=== PATIENT | male | born 1960 | race Caucasian/White ===

== ENCOUNTER 2016-08-24 18:09 | Inpatient (IN) | payer BC ==
[~2016-08-24] VITALS: Ht 180.3 cm; Wt 126.5 kg
[~2016-08-24 18:09] MED LIST: ASPI-1085 PO; CARV6.252 PO; DIPH25CA84 PO; FURO40TA5 PO; INSU100C14 SQ; INSU300I SQ; LISI2.5T2 PO; METF10002 PO; NITR0.4T39 SL; TICA90TA PO; UNKNOWN THYROID MED
--- OUTSIDE RECORDS SUMMARY | 2016-08-24 18:14 | XMS REPORT | Continuity of Care Document ---
Author Author [facility] Organization [facility] Address Unknown Phone Unavailable Support Name Relationship Address Phone AFSHAN RICHTER MD Caregiver [address] [place] [address] Unavailable PAULO PACKER DO Caregiver [address] [place] [address] Unavailable NHI MURILLO Next Of Kin [address] [place], [place] [id number] Insurance Providers Guarantor Juwan Alas Address [address] [phone] Email DENIED/NO TO PT PORTAL Payer [facility] Policy Number [id number] Subscriber's Name Juwan Alas Relationship 18 Self Group Number [id number] Chief Complaint and Reason for Visit Chief Complaint Back Pain or Injury Reason for Visit Fatigue Problems Active Problems Medical Problem Onset Date Status CAD S/P percutaneous coronary angioplasty Unknown Chronic Congestive heart disease Unknown Chronic DM2 (diabetes mellitus, type 2) Unknown Depression Unknown Dyspnea on exertion Unknown Acute HTN (hypertension) Unknown Chronic History of pulmonary embolism Unknown Past Problems Medical Problem Onset Date Acute bronchitis Unknown Callus of foot Unknown Chest pain, rule out acute myocardial infarction Unknown Eschar of foot Unknown Fatigue Unknown Medications Current Home Medications Medication Dose Units Route Directions Days Qty Instructions Start Date Aspirin (Aspirin Ec) 81 Mg Tablet.dr 81 Mg Oral Daily 12/11/15 Carvedilol 6.25 Mg Tablet 6.25 Mg Oral Twice Daily With Meals Diphenhydramine Hcl (Benadryl) 25 Mg Capsule 25 Mg Oral Every 4 Hours as needed for Allery Symptoms 03/03/16 Furosemide 40 Mg Tablet 40 Mg Oral Daily 12/11/15 Insulin Glargine,Hum.rec.anlog (Toujeo Solostar) 300 Unit/1 Ml Insuln.pen 45 Unit Sub-Q Bedtime 12/11/15 Insulin Lispro (Humalog) 100 Unit/1 Ml Cartridge 25 Unit Sub-Q Three Times Daily With Meals 10/11/15 Lisinopril 2.5 Mg Tablet 5 Mg Oral Daily 03/03/16 Metformin Hcl 1,000 Mg Tablet 1,000 Mg Oral Twice Daily With Meals 12/11/15 Nitroglycerin 0.4 Mg Tab.subl 0.4 Mg Sublingual Every 5 Minutes X 3 as needed for Chest Tightness 12/11/15 Ticagrelor (Brilinta) 90 Mg Tablet 90 Mg Oral Twice A Day Unknown Thyroid Med 06/19/16 Social History Social History Problem Response Recorded Date/Time Onset Date Status Chewing Tobacco Status No 06/19/2016 10:16pm Not Applicable Not Applicable Hx Substance Use Y AGE 27-31 SMOKED COCAINE 06/19/2016 10:16pm Not Applicable Not Applicable Hx Alcohol Use N STOPPED 199006/19/2016 10:16pm Not Applicable Not Applicable Has the pt used tobacco in the last 12 months No 12/11/2015 4:14am Not Applicable Not Applicable Query Response Start Date Stop Date Smoking Status Never smoker Hospital Discharge Instructions No hospital discharge instructions. Plan of Care Discharge Date 06/19/16 11:56pm Disposition 01 DISCHARGED HOME, SELF-CARE Condition at Discharge Stable Instructions/Education Provided Fatigue (ED) Prescriptions See Medication Section Referrals PAULO PACKER DO Address: [address] [place] [phone] Additional Instructions/Education I do want you to schedule an appointment with Dr. Barnett and go to this appointment to evaluate your heart. I also do want you to schedule an appointment with [facility] next week for reevaluation of your symptoms. If you should have any worsening chest pain, shortness of breath, or any new issues/concerns then return to the Er for reevaluation. Care Plan and Goals Physician Care Plan Problem:Fatigue Goal: Follow up with primary care provider Instructions: Take medications and follow care plan as discussed/written Functional Status No functional status results. Allergies, Adverse Reactions, Alerts Allergen Type Severity Reaction Status Last Updated Jbgwfot-Wuh-Kua Reductase Inhibitor Allergy Unknown SPASMS Active 06/19/16 Chlorpromazine Allergy Severe STOPPED BREATHING Active 06/19/16 Immunizations Query Response on File Recorded Date/Time Hx Influenza Vaccination No 12/11/15 4:14am Hx Pneumococcal Vaccination No 12/11/15 4:14am Hx Influenza Vaccination No 12/11/15 4:14am Influenza Vaccine Hx NO 06/19/16 10:16pm Tetanus Diptheria Vaccine History UNKNOWN 06/19/16 10:16pm Vital Signs Acute Vital Signs Vital Response Date/Time Temperature (Fahrenheit) 99.0 deg F (96.8 - 99.1) 06/19/2016 10:10pm Temperature (Calculated Celsius) 37.13259 degrees C (36.0 - 37.3) 06/19/2016 10:10pm Pulse Rate (adult) 90 bpm (60 - 100) 06/19/2016 11:56pm Respiratory Rate 21 breaths/min (10 - 20) 06/19/2016 11:56pm O2 Sat by Pulse Oximetry 95 % (90 - 100) 06/19/2016 11:56pm Blood Pressure 115/56 mm Hg 06/19/2016 11:56pm Height (Feet) 5 feet 06/19/2016 10:10pm Height (Inches) 11.00 inches 06/19/2016 10:10pm Weight (Kilograms) 127.700 kg 06/19/2016 10:10pm Body Mass Index (BMI) 39.0 06/19/2016 10:10pm Results Laboratory Results Test Name Result Units Flags Reference Collection Date/Time Result Date/ Time Comments Total Bilirubin 0.60 MG/DL 0.20-1.30 04/30/2016 12:35pm 04/30/2016 1: 18pm Alkaline Phosphatase 63 U/L 38-126 04/30/2016 12:35pm 04/30/2016 1: 18pm Total Protein 7.3 G/DL 6.3-8.2 04/30/2016 12:35pm 04/30/2016 1:18pm Albumin 4.1 G/DL 3.5-5.0 04/30/2016 12:35pm 04/30/2016 1:18pm Globulin 3.2 G/DL 2.4-3.6 04/30/2016 12:35pm 04/30/2016 1:18pm Albumin/Globulin Ratio 1.3 RATIO 1.1-2.2 04/30/2016 12:35pm 04/30/2016 1:18pm Aspartate Amino Transf (AST/SGOT) 37 U/L 17-59 04/30/2016 12:35pm 04/30 1:18pm Alanine Aminotransferase (ALT/SGPT) 53 U/L 21-72 04/30/2016 12:35pm 1:18pm Cholesterol Level 188 MG/DL 132-199 04/30/2016 12:35pm 05/04/2016 2: 37am Triglycerides Level 216 MG/DL H 40-160 04/30/2016 12:35pm 05/04/2016 2: 37am HDL Cholesterol Direct 26 MG/DL L 40-60 04/30/2016 12:35pm 05/04/2016 2: 37am LDL Cholesterol, Calculated 118.8 66-159 04/30/2016 12:35pm 2016 2:37am VLDL Cholesterol 43.2 MG/DL H 0-28 04/30/2016 12:35pm 05/04/2016 2:37am Cholesterol/HDL Ratio 7.2 RATIO H 0-5.0 04/30/2016 12:35pm 05/04/2016 2: 37am C-Reactive Protein 5.8 MG/L 0-9 04/30/2016 12:35pm 04/30/2016 3:34pm Thyroid Stimulating Hormone (TSH) 4.91 MIU/L H 0.47-4.68 04/30/2016 12: 35pm 04/30/2016 2:55pm Urine Random Creatinine 62.9 MG/DL 04/30/2016 12:36pm 05/04/2016 3: 14am Urine Microalbumin < 6.0 MG/L 0-17 04/30/2016 12:36pm 05/04/2016 3: 19am Urine Collection Type CLEANCATCH-MIDSTREAM 04/30/2016 12:37pm 04/30 12:50pm Urine Color YELLOW YELLOW 04/30/2016 12:37pm 04/30/2016 12:50pm Urine Turbidity CLEAR CLEAR 04/30/2016 12:37pm 04/30/2016 12:50pm Urine Specific [place] 1.015 1.015-1.025 04/30/2016 12:37pm 2016 12:50pm Urine pH 5.5 5.0-8.0 04/30/2016 12:37pm 04/30/2016 12:50pm Urine Leukocyte Esterase NEGATIVE NEGATIVE 04/30/2016 12:37pm 2016 12:50pm Urine Nitrite NEGATIVE NEGATIVE 04/30/2016 12:37pm 04/30/2016 12: 50pm Urine Protein NEGATIVE NEGATIVE 04/30/2016 12:37pm 04/30/2016 12: 50pm Urine Glucose (UA) TRACE A NEGATIVE 04/30/2016 12:37pm 04/30/2016 12: 50pm Urine Ketones NEGATIVE NEGATIVE 04/30/2016 12:37pm 04/30/2016 12: 50pm Urine Urobilinogen 0.2 EU/DL NORMAL 04/30/2016 12:37pm 04/30/2016 12: 50pm Urine Bilirubin NEGATIVE NEGATIVE 04/30/2016 12:37pm 04/30/2016 12: 50pm Urine Blood NEGATIVE NEGATIVE 04/30/2016 12:37pm 04/30/2016 12:50pm Urine WBC NONE SEEN /HPF 0-5 04/30/2016 12:37pm 04/30/2016 1:01pm Urine RBC NONE SEEN /HPF 0-3 04/30/2016 12:37pm 04/30/2016 1:01pm Urine Bacteria NONE SEEN NEGATIVE 04/30/2016 12:37pm 04/30/2016 1: 01pm Urine Culture Indicated CULT NOT INDICATED 04/30/2016 12:37pm 04/30 1:01pm Erythrocyte Sedimentation Rate 57 mm/h H 0-15 04/30/2016 12:36pm 2016 10:44pm Sedimentation Rate performed at [facility], [address] [place] [address] Bounty Trapper Juanita Leonardo DO White Blood Count 10.9 T/MM3 4.5-11.0 06/19/2016 10:36pm 06/19/2016 10: 40pm Red Blood Count 5.09 M/MM3 4.50-5.90 06/19/2016 10:36pm 06/19/2016 10: 40pm Hemoglobin 15.9 GM/DL 13.5-17.5 06/19/2016 10:36pm 06/19/2016 10:40pm Hematocrit 45.1 % 41-53 06/19/2016 10:36pm 06/19/2016 10:40pm Mean Corpuscular Volume 88.6 UM3 80-100 06/19/2016 10:36pm 06/19/2016 10:40pm Mean Corpuscular Hemoglobin 31.2 UUG 26-34 06/19/2016 10:36pm 2016 10:40pm Mean Corpuscular Hemoglobin Concent 35.3 GM/DL 31-37 06/19/2016 10:36pm 06/19/2016 10:40pm RDW Standard Deviation 38.7 FL 36.9-50.2 06/19/2016 10:36pm 06/19/2016 10:40pm Platelet Count 250 T/MM3 130-400 06/19/2016 10:36pm 06/19/2016 10:40pm Mean Platelet Volume 11.3 UM3 9.4-12.4 06/19/2016 10:36pm 06/19/2016 10 :40pm Neutrophils (%) (Auto) 62.6 % 33-66 06/19/2016 10:36pm 06/19/2016 10: 40pm Lymphocytes (%) (Auto) 28.2 % 23-45 06/19/2016 10:36pm 06/19/2016 10: 40pm Monocytes (%) (Auto) 8.5 % 0-9.0 06/19/2016 10:36pm 06/19/2016 10:40pm Eosinophils (%) (Auto) 0.0 % 0-4 06/19/2016 10:36pm 06/19/2016 10:40pm Basophils (%) (Auto) 0.4 % 0-2 06/19/2016 10:36pm 06/19/2016 10:40pm Immature Granulocyte % (Auto) 0.3 % 0.0-0.5 06/19/2016 10:36pm 2016 10:40pm Absolute Neutrophils (auto) 6.9 T/MM3 1.8-7.7 06/19/2016 10:36pm 2016 10:40pm Absolute Lymphocytes (auto) 3.1 T/MM3 1-4.8 06/19/2016 10:36pm 2016 10:40pm Absolute Monocytes (auto) 0.9 T/MM3 H 0-0.8 06/19/2016 10:36pm 2016 10:40pm Absolute Eosinophils (auto) 0.0 T/MM3 0-0.5 06/19/2016 10:36pm 2016 10:40pm Absolute Basophils (auto) 0.0 T/MM3 0-0.2 06/19/2016 10:36pm 2016 10:40pm Absolute Immature Granulocyte (auto 0.03 T/MM3 0.00-0.03 06/19/2016 10: 36pm 06/19/2016 10:40pm Icterus Index < 2 0-7 06/19/2016 10:36pm 06/19/2016 11:19pm Chemistry Specimen Hemolysis < 15 0-25 06/19/2016 10:36pm 06/19/2016 11:19pm 0-25: Specimen Exhibited No Hemolysis. Turbidity 25 H 0-20 06/19/2016 10:36pm 06/19/2016 11:19pm 0-21: Turbidity not present. 22-999: Turbidity present - Gross turbidity can falsely decrease Lipase and Triglycerides. Sodium Level 143 MEQ/L 134-144 06/19/2016 10:36pm 06/19/2016 11:19pm Potassium Level 4.5 MEQ/L 3.6-5 06/19/2016 10:36pm 06/19/2016 11:19pm Chloride Level 101 MEQ/L 98-107 06/19/2016 10:36pm 06/19/2016 11:19pm Carbon Dioxide Level 25 MEQ/L 22-30 06/19/2016 10:36pm 06/19/2016 11: 19pm Anion Gap 17 MEQ/L H 5-15 06/19/2016 10:36pm 06/19/2016 11:19pm Blood Urea Nitrogen 42.0 MG/DL H 9-20 06/19/2016 10:36pm 06/19/2016 11: 19pm Creatinine 1.4 MG/DL 0.8-1.5 06/19/2016 10:36pm 06/19/2016 11:19pm BUN/Creatinine Ratio 30 RATIO H 6-26 06/19/2016 10:36pm 06/19/2016 11: 19pm Glomerular Filtration Rate Calc 53 06/19/2016 10:36pm 06/19/2016 11 :19pm Glucose Level 143 MG/DL H 75-110 06/19/2016 10:36pm 06/19/2016 11:19pm Calculated Osmolality 288 MOSM/KG H 261-280 06/19/2016 10:36pm 2016 11:19pm Calcium Level 9.5 MG/DL 8.4-10.2 06/19/2016 10:36pm 06/19/2016 11:19pm Troponin I < 0.012 ng/ml 0-0.12 06/19/2016 10:36pm 06/19/2016 11:31pm Troponin values with a difference of 55% increase from orginal troponin value represent a true biological DELTA value. (%increase Calc=Orginal Troponin value, divided by subsequent Troponin value, multiplied by 100) Procedures Procedure Status Date Provider(s) Ana subq tissue 20 sq cm/< Completed 05/03/16 Office/outpatient visit est Completed 05/03/16 [id number]"BORDER, EACH DRESSING" Completed 05/03/16 Routine venipuncture Completed 04/30/16 Comprehen metabolic panel Completed 04/30/16 Lipid panel Completed 04/30/16 Urinalysis auto w/scope Completed 04/30/16 Microalbumin quantitative Completed 04/30/16 Assay of urine creatinine Completed 04/30/16 Assay thyroid stim hormone Completed 04/30/16 Complete cbc w/auto diff wbc Completed 04/30/16 Rbc sed rate automated Completed 04/30/16 C-reactive protein Completed 04/30/16 Encounters Encounter Location Arrival/Admit Date Discharge/Depart Date Attending Provider Departed Emergency Room [facility] 06/19/16 9:49pm 06/19/16 11: 56pm AFSHAN RICHTER MD Registered Clinic [facility] 05/03/16 1:20pm LINDA HINOJOSA MD Registered [facility] 04/30/16 12:06pm PAULO PACKER DO Recent Diagnosis
[2016-08-24] MEDS ORDERED: FLUT16SP EA NOSTRIL (18:58)
[2016-08-24] MEDS ORDERED: LISI-625 PO (18:58)
[2016-08-24] MEDS ORDERED: INSU100I3 SQ (18:58)
--- NOTE | 2016-08-24 19:05 | NUR ---
WOUND LARGEST WOUND ON LEFT FOOT IS 5 CM X 3 CM, BLOOD BLISTER, WITH DARK TISSUE UNDER SKIN. 2ND WOUND IS NEAR THE BASE OF THE AMPUTATED TOE AND IS 3 CM X 3 CM AND IS REDDENED WITH SMALL AREA OF OPEN SKIN.
[2016-08-24 19:28] LABS: BASOPHILS % (AUTO) 0.2 % (0-2); HCT - HEMATOCRIT 36.8 % (41-53); HGB - HEMOGLOBIN 12.7 GM/DL (13.5-17.5); IMMATURE GRANULOCYTE # (AUTO) 0.03 T/MM3 (0.00-0.03); IMMATURE GRANULOCYTE % (AUTO) 0.2 % (0.0-0.5); LYMPHOCYTES # (AUTO) 2.5 T/MM3 (1-4.8); LYMPHOCYTES % (AUTO) 20.7 % (23-45); MEAN CORPUSCULAR HGB 31.4 UUG (26-34); MEAN CORPUSCULAR HGB CONC(MCHC 34.5 GM/DL (31-37); MEAN CORPUSCULAR VOLUME 90.9 UM3 (80-100); MEAN PLATELET VOLUME 11.5 UM3 (9.4-12.4); MONOCYTES # (AUTO) 1.1 T/MM3 (0-0.8); MONOCYTES % (AUTO) 8.7 % (0-9.0); NEUTROPHILS #(AUTO)-ABSOLUTE 8.5 T/MM3 (1.8-7.7); NEUTROPHILS % (AUTO) 70.2 % (33-66); RED BLOOD COUNT 4.05 M/MM3 (4.50-5.90); WBC - WHITE BLOOD COUNT 12.1 T/MM3 (4.5-11.0)
[2016-08-24 19:32] LABS: LACTATE - LACTIC ACID 1.5 MMOL/L (0.6-2.2)
[2016-08-24 19:33] LABS: ANION GAP 13 MEQ/L (5-15); BUN/CREATININE RATIO 24 RATIO (6-26); CALCIUM 8.9 MG/DL (8.4-10.2); CHLORIDE 99 MEQ/L (98-107); CO2 - CARBON DIOXIDE 24 MEQ/L (22-30); CREATININE 1.2 MG/DL (0.8-1.5); GLOMERULAR FILTRATION RATE 63; GLUCOSE 239 MG/DL (75-110); POTASSIUM 4.5 MEQ/L (3.6-5); SODIUM 136 MEQ/L (134-144)
--- NOTE | 2016-08-24 19:34 | ERPDOC ---
Departure Disposition Decision Date: August 24, 2016 Disposition Decision Time: 20:58 Disposition: 02 TO [facility] Impression Impression Impression: Primary Impression: Diabetic infection of left foot Severity: Moderate Condition: Stable Seen By: Mid-level only Referrals: PAULO PACKER DO (Family) Problems/Meds/Labs Reviewed?: Yes Medications reviewed and manag: Yes Follow up care ordered?: Yes Mental Status: Alert, Oriented Scripts Lactobacillus Rhamnosus GG (Culturelle) 1 Each Capsule 1 CAP PO TIDWM for 14 Days, #42 CAP Prov: IZABELA CLARK MUSEUM EDUCATOR 08/27/16 Ciprofloxacin HCl (Ciprofloxacin HCl) 500 Mg Tablet 1 TAB PO Q12H for 7 Days, #14 TAB Prov: IZABELA CLARK MUSEUM EDUCATOR 08/27/16 Clindamycin HCl (Clindamycin HCl) 300 Mg Capsule 1 CAP PO QID for 7 Days, #28 CAP TAKE WITH A FULL GLASS OF WATER TO AVOID ESOPHAGEAL IRRITATION. Prov: IZABELA CLARK MUSEUM EDUCATOR 08/27/16 Hydrocodone/Acetaminophen ([place] 5-325 Tablet) 5-325 Tablet 1 TAB PO Q4H Y for PAIN, #16 TAB Prov: IZABELA CLARK MUSEUM EDUCATOR 08/27/16 HPI General Chief Complaint: SEPSIS Stated Complaint: SWOLLEN LEFT FOOT Time Seen by Provider: 18:39 Source: patient Exam Limitations: no limitations HPI Foot/Ankle Initial Comments He is a diabetic and has a history of diabetic foot ulcers. He has had his great toe amputated about 2 years ago. States that over the last few days he has had some increased pain in this foot. Has been moving and so has been on his feet a lot more. He has a CAM boot that he is supposed to wear but he has not been wearing this as he does not like it. Has not felt well today. Blood sugars have been running in the 200s. Had a temp upon arrival of 101 but did not realize he was febrile. Occurred At: home Onset: Gradual Duration: 1 week Severity: moderate Location: left: foot Method of Injury: unknown Associated Symptoms: pain with standing, redness, swelling, DENIES: bruising, numbness, pain with extension, pain with flexion, pallor, red streaks, weakness Allergies: Coded Allergies: chlorpromazine (Verified Allergy, Severe, STOPPED BREATHING, 08/24/16) Njspbon-Xcu-Shj Reductase Inhibitor (Verified Allergy, Unknown, SPASMS, 08/24/16) Past History Past Medical History Metabolic: diabetes, hypertension Cardiac: CAD, CHF, echocardiogram Respiratory: pulmonary embolus Psychological: depression Surgical History Cardiac: cardiac bypass, cardiac cath, cardiac stent Joint: other Family History Family PMH: FOUND: CVA, [place] Vaccines Hx Influenza Vaccination: No Hx Pneumococcal Vaccination: No Social History Substance Use Type: does not use Alcohol Intake: none Current Occupational Status: unemployed Review of Systems Constitutional Constitutional: fever, DENIES: chills, dizziness, fatigue, weakness Cardiovascular Cardiac: DENIES: chest pain, orthopnea Rhythm/Rate: DENIES: irregular beat, palpitations Pulmonary Respiratory: DENIES: cough, dyspnea, sputum, tachypnea GI Upper Abdomen: DENIES: nausea, pain, vomiting Lower Abdomen: DENIES: constipation, diarrhea, pain Musculoskeletal General: pain (left foot pain), tenderness (left foot, plantar surface), DENIES : joint pain, joint swelling, weakness Integumentary Skin: color change (plantar surface of left foot), DENIES: itching, lesion, rash Neurological General: DENIES: numbness, tingling, weakness Exam General General Nourishment: well nourished, well developed, appears stated age, no acute distress, adult General Body Habitus: well groomed Vital Signs: Temperature: 101.6, Source: Oral, Heart Rate: 110, Respiratory Rate: 20, BP: 124/72, Pulse Oximetry: 95 Height (Feet): 5 Height (Inches): 11.00 Fastrak Foot/Ankle Foot/Ankle : Leg: Left Leg: NOT FOUND: atrophy, contusion, deformity, discoloration, edema, numbness, swelling, tender, weakness Ankle: NOT FOUND: achilles tendon insertion, anterior drawer sign, decreased ROM, deformity, ecchymosis, foot drop, numbness, swelling, tender lat. foot, tender lat. malleolus, tender med. malleolus, tender mid foot, weakness Foot: swelling (plantar surface of the left foot has a large blood blister that is intact. There is an odorous smell about the foot. Note that stump part of the great toe is swollen and red and tender as well. ), NOT FOUND: atrophy, deformity, discoloration, numbness, tender 1st MTP joint, tender plantar fascia Toes: cap refill <2 sec ea toe, NOT FOUND: decreased ROM, deformity, ecchymosis, erythema, nail avulsion, subungual hematoma Posterior Tibial Pulse: 2+ Neurologic RN Documented GCS Eye Opening: (4)Spontaneous Verbal: (5)Oriented Motor: (6)Obeys Commands Total: Differential Diagnoses Considering: Other (Gangrene, cellulitis, diabetic foot ulceration, osteomyelitis) Progress Results/Orders Orders Lab Results Medications Current ED Medications Acetaminophen (Tylenol Regular Strength) 650 mg O ONCE PO Last administered on 08/24/16t 20:15; Start 08/24/16 at 20:15; Stop 08/24/16 at 20:16; Status DC Progress Progress WBC is 12.1 with 70.2 neutrophils today. BMP is normal with BGM on lab of 239. UA is clear, lactate and procalcitonin is normal. Xray does not show any indication of osteomyolitis. Did speak with hospitalist given his fever and the extensive wound. He does accept for admission at this time with order for Vancomycin and Zosyn. Xray Xray : Reason for Exam: left foot infection Xray: Foot L Interpretation: Normal MIKALA TIAN MUSEUM EDUCATOR August 24, 2016 19:34 Acetaminophen PHA 08/24/16 Complete (Tylenol Regular 20:15 Vancomycin 2g Iv PHA 08/24/16 Transmitted Piggyback 21:00 Zosyn 3.375g Iv PHA 08/24/16 Transmitted Piggyback 21:00 Place In Facility As: ADMIT 08/24/16 Transmitted Lab Results Laboratory Tests Test 08/24/16 19:02 08/24/16 19:03 08/24/16 19:51 Turbidity 20 Sodium Level 136MEQ/L Potassium Level 4.5MEQ/L Chloride Level 99MEQ/L Carbon Dioxide Level 24MEQ/L Anion Gap 13MEQ/L Blood Urea Nitrogen 29.0MG/DL Creatinine 1.2MG/DL Glomerular Filtration Rate Calc 63 BUN/Creatinine Ratio 24RATIO Glucose Level 239MG/DL Calculated Osmolality 276MOSM/KG Calcium Level 8.9MG/DL Icterus Index < 2 Plasma Lactate 1.5MMOL/L Procalcitonin < 0.05NG/ML Chemistry Specimen Hemolysis < 15 White Blood Count 12.1T/MM3 Red Blood Count 4.05M/MM3 Hemoglobin 12.7GM/DL Hematocrit 36.8% Mean Corpuscular Volume 90.9UM3 Mean Corpuscular Hemoglobin 31.4UUG Mean Corpuscular Hemoglobin Concent 34.5GM/DL RDW Standard Deviation 39.5FL Platelet Count 242T/MM3 Mean Platelet Volume 11.5UM3 Immature Granulocyte % (Auto) 0.2% Neutrophils (%) (Auto) 70.2% Lymphocytes (%) (Auto) 20.7% Monocytes (%) (Auto) 8.7% Eosinophils (%) (Auto) 0.0% Basophils (%) (Auto) 0.2% Absolute Immature Granulocyte (auto 0.03T/MM3 Absolute Neutrophils (auto) 8.5T/MM3 Absolute Lymphocytes (auto) 2.5T/MM3 Absolute Monocytes (auto) 1.1T/MM3 Absolute Eosinophils (auto) 0.0T/MM3 Absolute Basophils (auto) 0.0T/MM3 Urine Collection Type Cleancatch-midstream Urine Color Yellow Urine Turbidity Clear Urine pH 5.5 Urine Specific [place] 1.015 Urine Protein Negative Urine Glucose (UA) Negative Urine Ketones Negative Urine Blood Negative Urine Nitrite Negative Urine Bilirubin Negative Urine Urobilinogen 0.2EU/DL Urine Leukocyte Esterase Trace Urinalysis Comment Microscopic not ind. Medications Current ED Medications Acetaminophen (Tylenol Regular Strength) 650 mg O ONCE PO Last administered on 08/24/16t 20:15; Start 08/24/16 at 20:15; Stop 08/24/16 at 20:16; Status DC MIKALA TIAN APRN August 24, 2016 19:34
--- NOTE | 2016-08-24 19:39 | NUR ---
XRAY PORTABLE XRAY BEING DONE AT THIS TIME.
--- NOTE | 2016-08-24 19:45 | NUR ---
ELIMINATION PATIENT UP TO BR IN ROOM TO ATTEMPT TO VOID. UA TO BE COLLECTED.
[2016-08-24 19:55] LABS: BLOOD, URINE NEGATIVE (NEGATIVE); COLOR,URINE YELLOW (YELLOW); LEUKOCYTE ESTERASE ,URINE TRACE (NEGATIVE); NITRITE,URINE NEGATIVE (NEGATIVE); UROBILINOGEN,URINE 0.2 EU/DL (NORMAL)
[2016-08-24] MEDS ORDERED: ACETAMINOPHEN 325 MG TABLET PO ONE (20:15)
[2016-08-24 20:25] VITALS: BP 102/74; PULSE 95; RESP 18; TEMP 99.7; O2SAT 99
[2016-08-24] MEDS ORDERED: VANCOMYCIN 2,000 MG in NORMAL SALINE 500 ML IV SCH (21:00)
--- NOTE | 2016-08-24 21:16 | NUR ---
REPORT GIVEN TO TASH WELLS. NO QUESTIONS NOTED.
--- NOTE | 2016-08-24 21:25 | NUR ---
ADMIT ARRIVED TO MEDICAL RM 155 FROM ED VIA WHEELCHAIR.
[2016-08-24 21:43] VITALS: Ht 180.3 cm; Wt 126.5 kg
[2016-08-24] MEDS ORDERED: HYDROMORPHONE 2mg/ml INJECTION IV PRN (21:45)
[2016-08-24] MEDS ORDERED: LR 1,000 ML IV SCH (21:45)
[2016-08-24] MEDS ORDERED: ACETAMINOPHEN 325 MG TABLET PO PRN (21:45)
--- NOTE | 2016-08-24 21:58 | HPPDOC ---
MARS HANSEN MD 08/24/16 2151: HPI - Adult Date DATE: 08/24/16 TIME: 21:48 General Chief Complaint: didn't feel good History of Present Illness very pleasant 56-year-old male with a history of diabetes mellitus and a left great toe that had to be amputated the past. He reportedly was supposed to be using a cam walker but doesn't like using it so has admittedly not been using it. his party plan sales agent told him to increase his exercise so last week he increase his walking from one mild to 2 miles. He had some increased pain in his foot following this, but he thought it was just from the increased distance. With the increased pain this evening he finally looked at the time of his foot and was concerned with what he found. He looked at the bottom of his foot today and noticed a large blister appearing lesion and some swelling and wasn't feeling very well so came to the emergency room to get checked out. He thought he might have had a fever subjectively and in fact had one in the emergency room. X-ray performed in the emergency room demonstrates soft tissue involvement but superficially and on wet read no evidence of osteomyelitis. He was started on vancomycin in the emergency room and admitted for further care for the wound. Completed a 10 point review of systems otherwise. He complains of postnasal drip with a chronic cough, he has intermittent left-sided abdominal pain increases with Valsalva maneuver. He denies any. He's never had a colonoscopy. He has a history of congestive heart failure following his heart attack one year ago. He's been able to improve his activity and overall has been compliant with his medications. He does snore but denies a history of ARSH. Past Medical History Past Medical History coronary artery disease status post DCI with 5 stents 1 year ago in [facility] Chronic systolic congestive heart failure due to ischemic cardiomyopathy, he sees Dr. 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 Surgical History Patient's Surgical History: left great toe amputation Current Medications Home Meds Reported Medications Fluticasone Propionate (Fluticasone Prop 50 mcg/actuation Nasal Alta) 120 Alta /16 G Alta, 1 SPRAY EA NOSTRIL DAILY 08/24/16 Lisinopril (Lisinopril) 5 Mg Tablet, 5 MG PO DAILY 08/24/16 Insulin Aspart (Novolog Flexpen) 1 Unit Pen, 20 UNIT SQ TIDWM 08/24/16 Diphenhydramine HCl (Benadryl) 25 Mg Capsule, 25 MG PO Q4H Y for ALLERY SYMPTOMS 03/03/16 Carvedilol (Carvedilol) 6.25 Mg Tablet, 6.25 MG PO BIDWM 12/11/15 Furosemide (Furosemide) 40 Mg Tablet, 40 MG PO DAILY 12/11/15 Aspirin *EC* (Aspirin EC) 81 Mg Tablet.dr, 81 MG PO DAILY 12/11/15 Nitroglycerin (Nitroglycerin) 0.4 Mg Tab.subl, 0.4 MG SL Q5MIN Y for CHEST PAIN 12/11/15 Metformin HCl (Metformin HCl) 1,000 Mg Tablet, 1000 MG PO BIDWM 12/11/15 Insulin Glargine,Hum.rec.anlog (Toujeo Solostar) 300 Unit/1 Ml Insuln.pen, 40 UNIT SQ HS 12/11/15 Ticagrelor (Brilinta) 90 Mg Tablet, 90 MG PO BID 12/11/15 Allergies: Coded Allergies: chlorpromazine (Verified Allergy, Severe, STOPPED BREATHING, 08/24/16) Pbqsnns-Tgs-Lsr Reductase Inhibitor (Verified Allergy, Unknown, SPASMS, 08/24/16) Family History Family History: Dad from complications of therapeutic 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 He been living with his friend until recently now has his own place Review of Systems All Other Systems All Other Systems: Reviewed (remainder of 10-point ROS Neg.) Physical Exam General General Nourishment: obese, apparent age Vital Signs Vital Signs Date Time Temp Pulse Resp B/P Pulse Ox O2 Delivery O2 Flow Rate FiO2 08/24/16 20:10 105 16 131/73 98 Room Air 08/24/16 18:32 101.6 Height (Feet): 5 Height (Inches): 11.00 Eyes Brief: FOUND: PERRL Respiratory Brief: FOUND: clear all carr, equal bilaterally Cardiovascular (brief) Cardiac Brief: FOUND: pedal edema, regular rate, regular rhythm Abdomen (brief) Abdominal Brief: FOUND: BS normo active x4, soft, tender Comments minimal TTP LLQ, no peritoneal signs Integumentary (brief) Comments the bottom of his left foot between the third fourth fifth toe area proximal to the toes reveals about a 1 inch area that looks a blister. There is some surrounding erythema. His left great toe surgically absent Neurologic RN Documented GCS Eye Opening: (4)Spontaneous Verbal: (5)Oriented Motor: (6)Obeys Commands Total: Psychiatric (brief) FOUND: alert, attentive (xray with soft tissue swelling, I dont see bony issue but formal report pending), oriented Laboratory Laboratory Tests Test 08/24/16 19:02 08/24/16 19:03 08/24/16 19:51 Turbidity 20 Sodium Level 136MEQ/L Potassium Level 4.5MEQ/L Chloride Level 99MEQ/L Carbon Dioxide Level 24MEQ/L Anion Gap 13MEQ/L Blood Urea Nitrogen 29.0MG/DL Creatinine 1.2MG/DL Glomerular Filtration Rate Calc 63 BUN/Creatinine Ratio 24RATIO Glucose Level 239MG/DL Calculated Osmolality 276MOSM/KG Calcium Level 8.9MG/DL Icterus Index < 2 Plasma Lactate 1.5MMOL/L Procalcitonin < 0.05NG/ML Chemistry Specimen Hemolysis < 15 White Blood Count 12.1T/MM3 Red Blood Count 4.05M/MM3 Hemoglobin 12.7GM/DL Hematocrit 36.8% Mean Corpuscular Volume 90.9UM3 Mean Corpuscular Hemoglobin 31.4UUG Mean Corpuscular Hemoglobin Concent 34.5GM/DL RDW Standard Deviation 39.5FL Platelet Count 242T/MM3 Mean Platelet Volume 11.5UM3 Immature Granulocyte % (Auto) 0.2% Neutrophils (%) (Auto) 70.2% Lymphocytes (%) (Auto) 20.7% Monocytes (%) (Auto) 8.7% Eosinophils (%) (Auto) 0.0% Basophils (%) (Auto) 0.2% Absolute Immature Granulocyte (auto 0.03T/MM3 Absolute Neutrophils (auto) 8.5T/MM3 Absolute Lymphocytes (auto) 2.5T/MM3 Absolute Monocytes (auto) 1.1T/MM3 Absolute Eosinophils (auto) 0.0T/MM3 Absolute Basophils (auto) 0.0T/MM3 Urine Collection Type Cleancatch-midstream Urine Color Yellow Urine Turbidity Clear Urine pH 5.5 Urine Specific Liberal 1.015 Urine Protein Negative Urine Glucose (UA) Negative Urine Ketones Negative Urine Blood Negative Urine Nitrite Negative Urine Bilirubin Negative Urine Urobilinogen 0.2EU/DL Urine Leukocyte Esterase Trace Urinalysis Comment Microscopic not ind. Sepsis Diagnostic Criteria Sepsis Confirmed/Suspected Infection: Yes SIRS Criteria: Temp<=96.8 or >=100.4, Pulse >= 90 beats/min, Bands >= 10% Severe Sepsis None Seen Assessment & Plan Problems: (1) Diabetic infection of left foot Status: Acute Assessment & Plan: IV vancomycin and Zosyn. Will culture any fluid or drainage is present. X-ray does not demonstrate osteomyelitis, but an MRI of the foot may be appropriate. We'll defer until on-site physician evaluates to order that. In addition may need a surgical consultation. Provide lactated Ringer's at 1.5 mL/h. His lactate level is less than 2 fortunately. He does meet simple sepsis criteria. Present on admission. (2) Sepsis Status: Acute Assessment & Plan: known history as far as what his ejection fraction is, he describes an EF of 14% last year. For this reason holding any further IV fluids and monitor closely. (3) DM2 (diabetes mellitus, type 2) Status: Chronic Qualifiers: Diabetes mellitus complication detail: with foot ulcer Assessment & Plan: Will order half of his usual Levemir dose to be nothing by mouth for possible drainage correctional dosing otherwise utnil taking by mouth resume usual (4) HTN (hypertension) Status: Chronic Assessment & Plan: continue Coreg and lisinopril monitor for possible development of hypotension related to sepsis or severe sepsis. (5) CAD S/P percutaneous coronary angioplasty Status: Chronic Assessment & Plan: Continue brintillal, aspirin, and Coreg and lisinopril as blood pressure allows. He is intolerant of, his party plan sales agent arranging for weekly infusions something to help control his cholesterol Code Status Full Code Hospital Course Summary Disclaimer The hospital course summary below is not to be considered part of the above Progress Note. KIRSTEN ORTIZ MD 08/25/16 7894: Past Medical History Current Medications Home Meds Reported Medications Fluticasone Propionate (Fluticasone Prop 50 mcg/actuation Nasal Alta) 120 Alta /16 G [place], 1 SPRAY EA NOSTRIL DAILY 08/24/16 Lisinopril (Lisinopril) 5 Mg Tablet, 5 MG PO DAILY 08/24/16 Insulin Aspart (Novolog Flexpen) 1 Unit Pen, 20 UNIT SQ TIDWM 08/24/16 Diphenhydramine HCl (Benadryl) 25 Mg Capsule, 25 MG PO Q4H Y for ALLERY SYMPTOMS 03/03/16 Carvedilol (Carvedilol) 6.25 Mg Tablet, 6.25 MG PO BIDWM 12/11/15 Furosemide (Furosemide) 40 Mg Tablet, 40 MG PO DAILY 12/11/15 Aspirin *EC* (Aspirin EC) 81 Mg Tablet.dr, 81 MG PO DAILY 12/11/15 Nitroglycerin (Nitroglycerin) 0.4 Mg Tab.subl, 0.4 MG SL Q5MIN Y for CHEST PAIN 12/11/15 Metformin HCl (Metformin HCl) 1,000 Mg Tablet, 1000 MG PO BIDWM 12/11/15 Insulin Glargine,Hum.rec.anlog (Toujeo Solostar) 300 Unit/1 Ml Insuln.pen, 40 UNIT SQ HS 12/11/15 Ticagrelor (Brilinta) 90 Mg Tablet, 90 MG PO BID 12/11/15 Allergies: Coded Allergies: chlorpromazine (Verified Allergy, Severe, STOPPED BREATHING, 08/24/16) Kphjyyk-Iks-Ymg Reductase Inhibitor (Verified Allergy, Unknown, SPASMS, 08/24/16) Sepsis Diagnostic Criteria Sepsis SIRS Criteria: WBC >=12,000 or <=4,000 Assessment & Plan Problems: (1) Diabetic infection of left foot Status: Acute Assessment & Plan: IV vancomycin and Zosyn. Will culture any fluid or drainage is present. X-ray does not demonstrate osteomyelitis, but an MRI of the foot may be appropriate. We'll defer until on-site physician evaluates to order that. In addition may need a surgical consultation. Provide lactated Ringer's at 1.5 mL/h. His lactate level is less than 2 fortunately. He does meet simple sepsis criteria. Present on admission. 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 Bowser's note reviewed. Mr. Nicole interviewed and examined. CC: Fever, felt pain HPI: Mr. Alas's a 56-year-old uncontrolled diabetic who has noted increasing discomfort on the plantar surface of his left foot for the past week. He initially attributed pain to increased exercise regimen but upon examining his foot yesterday identified a large blister under the metatarsals with overlying "black skin" and purulent drainage with some bloody drainage present. He sure there is no blister present 1 week earlier but had not examined his feet in the intervening time. Patient reports that he's had chills for several days and felt feverish yesterday. On presenting to the emergency room had attempted 101.7 and was tachycardic. White count was elevated and he was subsequently admitted with sepsis due to by diabetic foot ulcer for further management. Patient describes significant pain up to 9/10 which is currently at 7-8/10. He previously had his left great toe amputated 2-3 years ago after stepping on nail. PH/SH/FH: agree with that recorded above with additions of seasonal rhinitis, possible thyroid abnormality recently treated with unknown medication, skin grafts as an , and ORIF right arm fracture as a child. ROS: 10 point review notable for his feet turning bluish when in dependent position. Chronic cough he attributes to CHF, postnasal drainage, and paresthesias/tingling sensation below his knees. Review of systems is otherwise negative or as per history of present illness. EXAM: General-talkative male, NAD, alert HEENT-PERRL, EOMI without nystagmus, conjugate gaze, facial structures symmetric , oropharynx clear, neck supple and without adenopathy Lungs-respirations nonlabored, good airflow, breath sounds clear anteriorly and posteriorly Cardiac-regular rhythm, S1-S2, no gallop appreciated; dorsalis pedis pulses +2 bilaterally Abd-soft, nontender, without palpable mass, bowel sounds present, morbidly obese Ext-without edema Skin-left forefoot dressing in place; no generalized rash, evidence of healed almanzar chest and upper arms Neuro-cranial nerves II through XII intact, motor tone normal, upper extremity strength and proximal lower extremity strength normal, sensation intact to light touch upper and proximal lower extremities with decreased sensation below the knees although he remains aware of light touch. Psych-calm, cooperative X-ray of the foot reviewed myself demonstrating prior amputation of the left great toe but no significant soft tissue swelling or evidence of bony abnormality. Mild leukocytosis, creatinine 1.2, CRP 32.1, lactic acid 1.5-1.2 procalcitonin < 0.05. Wound culture Gram stain with moderate gram-positive cocci in clusters and many neutrophils. A/P: Diabetic foot ulcer with sepsis- Broad-spectrum antibiotics initiated with vancomycin and Zosyn for diabetic foot wound. Dr. Medeiros consulted and case discussed with him earlier today. Echocardiogram approximate one year ago with ejection fraction 40%-continue carvedilol, aspirin, lisinopril, and Lasix. Patient reports spironolactone was recently discontinued due to tendency to have low blood pressures. Will initiate telemetry and monitor magnesium with next lab work. A1c to be screened in the morning, office records indicate A1c of approximately 10 3 months ago. Continue scheduled insulins and metformin. Brilinta on hold pending surgical intervention. Plan/Intensity of Service X-ray of foot reviewed by myself, discussed with Dr. Medeiros, nursing, and case management. Laboratory data reviewed, old records reviewed. Hospital Course Summary Hospital Course Summary 08/24-02/01 Broad-spectrum antibiotics initiated with vancomycin and Zosyn for diabetic foot wound. Dr. Medeiros consulted and case discussed with him earlier today. Echocardiogram approximate one year ago with ejection fraction 40%-continue carvedilol, aspirin, lisinopril, and Lasix. Patient reports spironolactone was recently discontinued due to tendency to have low blood pressures. Will initiate telemetry and monitor magnesium with next lab work. A1c to be screened in the morning, office records indicate A1c of approximately 10 3 months ago. Continue scheduled insulins and metformin. Brilinta on hold pending surgical intervention. TYRONE,MARS L MD August 24, 2016 21:51 KIRSTEN ORTIZ MD August 25, 2016 15:59
[2016-08-24] MEDS: NS 500 ML IV PRN (22:20)
[2016-08-24 23:15] VITALS: PULSE 100; RESP 18; O2SAT 98
[2016-08-24] MEDS ORDERED: DEXTROSE 50% SYRINGE 50ml (Eq. 1 AMP) IV PRN (23:45)
[2016-08-24] MEDS ORDERED: NITROGLYCERIN 0.4 MG SUBLINGUAL TABLET SL PRN (23:45)
[2016-08-24] MEDS ORDERED: GLUCOSE ORAL GEL 40% 37.5 G TUBE PO PRN (23:45)
[2016-08-24] MEDS ORDERED: DiphenhydrAMINE 25 MG CAPSULE PO PRN (23:45)
[2016-08-25] VITALS (8 sets, daily range): BP systolic 100–120; BP diastolic 65–69; PULSE 74–76; RESP 14–18; TEMP 96.7–97.8; O2SAT 94–96
--- NOTE | 2016-08-25 00:15 | NUR ---
DIET MADE PT NPO.
--- NOTE | 2016-08-25 00:31 | NUR ---
PHARMACY INFORMED PHARMACY OF VANCOMYCIN CONSULT, NO NEW ORDERS, THEY WILL RE-EVALUATE LATER THIS AM.
[2016-08-25] MEDS: PIPERACILLIN/TAZOBACTAM 3.375 G in NORMAL SALINE 100 ML IV SCH ×5 (00:46→17:35)
[2016-08-25] MEDS ORDERED: PIPERACILLIN/TAZOBACTAM 3.375 G in NORMAL SALINE 100 ML IV SCH (03:00)
[2016-08-25 05:48] LABS: BASOPHILS % (AUTO) 0.2 % (0-2); HCT - HEMATOCRIT 36.7 % (41-53); HGB - HEMOGLOBIN 12.3 GM/DL (13.5-17.5); IMMATURE GRANULOCYTE # (AUTO) 0.02 T/MM3 (0.00-0.03); IMMATURE GRANULOCYTE % (AUTO) 0.2 % (0.0-0.5); LYMPHOCYTES # (AUTO) 2.8 T/MM3 (1-4.8); LYMPHOCYTES % (AUTO) 31.5 % (23-45); MEAN CORPUSCULAR HGB 30.8 UUG (26-34); MEAN CORPUSCULAR HGB CONC(MCHC 33.5 GM/DL (31-37); MEAN CORPUSCULAR VOLUME 91.8 UM3 (80-100); MEAN PLATELET VOLUME 11.2 UM3 (9.4-12.4); MONOCYTES % (AUTO) 11.4 % (0-9.0); NEUTROPHILS % (AUTO) 56.7 % (33-66); WBC - WHITE BLOOD COUNT 8.8 T/MM3 (4.5-11.0)
[2016-08-25 06:01] LABS: ANION GAP 9 MEQ/L (5-15); BUN/CREATININE RATIO 20 RATIO (6-26); C-REACTIVE PROTEIN 32.1 MG/L (0-9); CALCIUM 8.5 MG/DL (8.4-10.2); CHLORIDE 103 MEQ/L (98-107); CO2 - CARBON DIOXIDE 29 MEQ/L (22-30); CREATININE 1.1 MG/DL (0.8-1.5); GLOMERULAR FILTRATION RATE 69; GLUCOSE 198 MG/DL (75-110); POTASSIUM 4.3 MEQ/L (3.6-5); SODIUM 141 MEQ/L (134-144)
[2016-08-25] MEDS ORDERED: INSULIN REGULAR 100 UNIT/ML SQ PRN (07:00)
[2016-08-25] MEDS ORDERED: INSULIN ASPART 20 UNIT SQ SCH (08:00)
--- NOTE | 2016-08-25 08:28 | NUR ---
CC RD designation Diet: Cardiac CC 2199 Based on the [address] Dex ,with an activity factor of 1.3 and an injury factor of 1.0 patient calorie needs are ~ 2256 to maintain currrent weight Once diet advances ,It Administrator recommends CC 2199 Addendum: 08/25/16 at 0836 by BALJINDER CHASE Wrong patient
--- NOTE | 2016-08-25 08:28 | DI ---
Indication: ITS.REASON: infection, possible gangrene PROCEDURE: FOOT LEFT 3 VIEWS: Encounter: Initial Comparison: None Findings: Again noted amputation of first digit MTP joint, with small metallic artifact lying distal to MTP in the soft tissue. No focal osteolysis or periosteal reaction involving metatarsals, including the distal first metatarsal at site of amputation. Other digits show flexion deformity distally. Borderline pes planus deformity on lateral projection. Impression: 1. Status post amputation first digit at MTP joint. 2. No acute osseous abnormality, with no developing focal osteolysis involving distal tip of first metatarsal at site of nonhealing ulcer. .
--- NOTE | 2016-08-25 08:43 | NUR ---
Diet Recommendation Electric Shaver Mechanic recommends CC 2600 when diet advances Based on [address] [place], with an activity factor of 1.3 and an injury factor of 1.1 patient calorie needs are ~ 3032kcal. Recommended calories are 500kcal less than estimated needs due to obesity. Current [facility] diet is CC 2200, M/E- intake RD will continue to monitor, Rd available @ 1406 Addendum: 08/25/16 at [address] Above note has been reviewed by XENIA.
[2016-08-25] MEDS: ENOXAPARIN 40 MG/0.4 ML INJECTION SQ SCH (09:15)
[2016-08-25] MEDS: FLUTICASONE NASAL SPRAY 50 MCG EA NOSTRIL SCH (09:15)
[2016-08-25] MEDS: VANCOMYCIN 2 G in NORMAL SALINE 500 ML IV SCH ×2 (09:16→20:47)
--- NOTE | 2016-08-25 09:48 | NUR ---
VANCOMYCIN CONSULT (Day 2) S: 56 y/o M admitted with a diabetic foot infection (left foot). Pt with previous left great toe amputation. In the past week patient has been walking more (up to two miles daily) and experience increased foot pain. When he checked the bottom of his foot found large blister/lesion with swelling. Presented to the ED and was started on pip/tazo and vancomycin empirically. Pharmacy consulted to manage vancomycin therapy. O: Ht=71 inches, Kv=058 kg, adjusted BW~95 kg SCr=1.1 mg/dL, CrCl~100 mL/min WBC=8.8 T/mm3 24-h Ysov=329.6F Left foot X-ray: lucencies in soft tissue adjacent to the first metatarsal; no evidence of osteomyelitis Lactate: 1.5 1.2 mmol/L PCN<0.05 ng/mL CRP=32.1 mg/L Blood cultures, 2 of 2: pending A/P: Day 2 vancomycin and pip/tazo empirically for diabetic foot infection. Goal vancomycin trough concentration 15-20 mcg/mL. Will order vancomycin 2 g IV q12h, estimated to provide a trough concentration of ~17-19 mcg/mL. Will continue to follow renal function, clinical status, and await cultures. Thank you for the consult, Suze Troy, PharmD, BCPS
--- NOTE | 2016-08-25 09:55 | NUR ---
PO MEDS DR. ORTIZ WAS NOTIFIED ABOUT PO MEDS. ORDER RECEIVED. GIVE COREG AND HOLD THE REST OF THE PO MEDS.
[2016-08-25] MEDS: CARVEDILOL 6.25 MG TABLET PO SCH ×2 (10:21→17:32)
[2016-08-25] MEDS: METFORMIN 1,000 MG TABLET PO SCH ×2 (11:06→17:32)
[2016-08-25] MEDS: FUROSEMIDE 40 MG TABLET PO SCH (11:06)
[2016-08-25] MEDS: LISINOPRIL 5 MG TABLET PO SCH (11:06)
--- NOTE | 2016-08-25 11:18 | NUR ---
MARYCHUY CM VISITED PT. CM EXPLAINED ROLE AND PROVIDED CONTACT INFORMATION. PT PLANS TO RETURN HOME POST HOSPITAL STAY. PT DOES NOT HAVE A CAR SO HE WILL NEED ASSISTANCE WITH TRANSPORTATION TO WOUND CLINIC APPOINTMENTS OVER THE NEXT MONTH. PT IS ANTICIPATING GETTING A CAR FROM HIS EMPLOYER. PT IS AWARE THAT CM IF CONSULTING CM FEEDER LOADER. PT IS AWARE TO CONTACT CM IF NEEDS ARISE.
[2016-08-25] MEDS: ASPIRIN *EC* 81mg TABLET PO SCH (11:53)
[2016-08-25] MEDS: INSULIN ASPART 100 UNIT/ML SQ SCH ×2 (12:14→17:32)
--- NOTE | 2016-08-25 13:03 | CONSPD ---
Consultation Info Date DATE: 08/25/16 TIME: 13:01 Date of Consultation: August 25, 2016 Reason for Consultation: wound HPI - Adult Date DATE: 08/25/16 TIME: 13:01 General Chief Complaint: didn't feel good History of Present Illness Per DR. Medeiros Past Medical History Past Medical History coronary artery disease status post DCI with 5 stents 1 year ago in [facility] Chronic systolic congestive heart failure due to ischemic cardiomyopathy, he sees Dr. 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 Surgical History Patient's Surgical History: left great toe amputation Current Medications Home Meds Reported Medications Fluticasone Propionate (Fluticasone Prop 50 mcg/actuation Nasal [place]) 120 [place] /16 G [place], 1 SPRAY EA NOSTRIL DAILY 08/24/16 Lisinopril (Lisinopril) 5 Mg Tablet, 5 MG PO DAILY 08/24/16 Insulin Aspart (Novolog Flexpen) 1 Unit Pen, 20 UNIT SQ TIDWM 08/24/16 Diphenhydramine HCl (Benadryl) 25 Mg Capsule, 25 MG PO Q4H Y for ALLERY SYMPTOMS 03/03/16 Carvedilol (Carvedilol) 6.25 Mg Tablet, 6.25 MG PO BIDWM 12/11/15 Furosemide (Furosemide) 40 Mg Tablet, 40 MG PO DAILY 12/11/15 Aspirin *EC* (Aspirin EC) 81 Mg Tablet.dr, 81 MG PO DAILY 12/11/15 Nitroglycerin (Nitroglycerin) 0.4 Mg Tab.subl, 0.4 MG SL Q5MIN Y for CHEST PAIN 12/11/15 Metformin HCl (Metformin HCl) 1,000 Mg Tablet, 1000 MG PO BIDWM 12/11/15 Insulin Glargine,Hum.rec.anlog (Toujeo Solostar) 300 Unit/1 Ml Insuln.pen, 40 UNIT SQ HS 12/11/15 Ticagrelor (Brilinta) 90 Mg Tablet, 90 MG PO BID 12/11/15 Allergies: Coded Allergies: chlorpromazine (Verified Allergy, Severe, STOPPED BREATHING, 08/24/16) Gvbrbzu-Oyr-Wbg Reductase Inhibitor (Verified Allergy, Unknown, SPASMS, 08/24/16) Family History Family History: Dad from complications of therapeutic radiation 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 coronary disease his mom is alive at age 70 has diabetes he has a brother 2 years younger than him, 9 years younger than him and his sister 11 years younger than he who are relatively healthy Social History Smoking Status: Unknown if ever smoked Substance Use Type: does not use, former substance user, crack/cocaine Alcohol Intake: none Marital Status: Housing: apartment Current Occupational Status: unemployed Advance Directives: No DPOA for Healthcare Only GS Review of Systems Endocrine REPORTS diabetes 10-point Review of Systems otherwise negative except HPI GS Physical Exam Vital Signs Date Time Temp Pulse Resp B/P Pulse Ox O2 Delivery O2 Flow Rate FiO2 08/25/16 11:20 16 08/25/16 07:39 74 08/25/16 07:34 96.7 100/65 Room Air 08/25/16 05:38 96 Height (Feet): 5 Height (Inches): 11.00 Weight (Kilograms): 124.500 BMI 38.9 Laboratory Laboratory Tests 08/24/16 19:02 08/25/16 05:33 Laboratory Tests 08/24/16 19:03 08/25/16 05:33 EDDY VANEGAS APRN August 25, 2016 13:03
[2016-08-25] MEDS: INSULIN ASPART 100 UNIT/ML SQ PRN (14:21)
--- NOTE | 2016-08-25 14:28 | DI ---
Indication: ITS.REASON: foot wounds PROCEDURE: US ARTERIAL EXTREMITY LOWER LT: Technique: Grayscale color and duplex Doppler imaging was performed of the arterial tree of both legs. Findings: Mild calcified plaque is seen throughout the system with no significant luminal narrowing. Waveform analysis shows mixed triphasic and biphasic waveforms. Velocities are normal with no focal increased or decreased velocity and segmental levels to indicate significant stenosis. Velocities are as follows: LEFT LEG (cm/sec) Common Femoral 77 Superficial Femoral Proximal 80 Mid 91 Distal 80 Popliteal 65 CAROL-prox 57 HYDROTEL OPERATOR-prox 81 CAROL-dist 49 HYDROTEL OPERATOR-dist 73 IMPRESSION:No evidence of significant focal stenosis identified. .
--- NOTE | 2016-08-25 19:47 | NUR ---
SHIFT SUMMARY PT IS ALERT AND ORIENTED X3. RA. PRN PAIN MEDS WERE GIVEN. PT HAS A DIABETIC FOOT ULCER IN HIS LEFT FOOT DRESSING IN PLACED. PT HAS GOOD PO INTAKE. PT IS PLEASANT AND COOPERATES WITH TREATMENT AND CARE. PT IS IN BED AT THIS TIME. CALL LIGHT IS WITHIN REACH. PT USES CALL LIGHT WHEN NEEDED.
--- NOTE | 2016-08-25 20:57 | CONSF ---
DATE OF CONSULTATION August 25, 2016 FINDINGS Mr. Alas is a 56-year-old gentleman whom I was asked to see today as a result of a left diabetic foot ulcer. Patient informs me that he has a long-standing history for diabetes mellitus. He informs me that he has had prior infection involving his left foot. Patient states that several years ago he had stepped on a nail which resulted in development of gangrene involving his left great toe. The patient states that he has undergone a prior left great toe amputation. Patient states that he has been working on losing some weight and has recently increased his walking. Patient states that he was instructed to walk with a boot that would offload his forefoot. Patient states that he could not "walk in the boot very well" so he had not been utilizing his orthotic and had been walking in normal shoes. He states that he then noted a large blister that was painful in nature involving the plantar aspect of the left foot. Patient subsequently presented to our hospital for further evaluation. PAST MEDICAL HISTORY, PAST SURGICAL HISTORY, MEDICATIONS, ALLERGIES, SOCIAL HISTORY, FAMILY HISTORY, REVIEW OF SYSTEMS Performed by my nurse practitioner, Ismael Ewing APRN PHYSICAL EXAMINATION GENERAL: Mr. Alas is a 56-year-old male who does not appear to be in acute distress. VITAL SIGNS: Temperature 97.8, pulse 75, respirations 18, blood pressure 120/68, SAO2 95% on room air. HEENT: Normocephalic. Pupils are equally round and react to light and accommodation. CHEST: Clear to auscultation bilaterally. HEART: Regular rate and rhythm. Normal S1 and S2 without gallops, murmurs or clicks. HEENT: Normocephalic. Pupils are equally round and react to light and accommodation. ABDOMEN: Palpation of the abdomen reveals it to be soft and nontender. I do not appreciate any evidence for hepatosplenomegaly nor abnormal masses. EXTREMITIES: Attention was focused to the left lower extremity. The patient's great toe has been surgically amputated. Just beneath the amputation site overlying the first metatarsal head the patient does have an open ulcer region that is on the order of about 2 cm in diameter. Additionally, upon the fourth and fifth metatarsal region the patient is found to have a large blister-like area that appears to contain binh purulence within the blister itself. Just proximal to this on the midfoot region the patient is found to have a large callus-like lesion which appears to be communicating with this blister-like region. Palpation of the foot reveals the foot to be warm to the touch. No palpable pulses, however, are noted. NEURO: Cranial nerves II-XII grossly intact. Patient is without focal motor or sensory deficits. LABORATORY/RADIOGRAPHIC EVALUATION The patient had a CBC upon admission and his white count was slightly elevated at 12.1. BMP was obtained and found to be essentially within normal limits. Glucose was elevated at 198. Procalcitonin was obtained and found to be normal at 0.5. Radiographically, the patient had a plain x-ray obtained of his left foot. No acute osseous abnormality was noted with no evidence for focal osteolysis being present. Prior great toe amputation was noted. After seeing the patient earlier this morning I also obtained an arterial duplex scan. No evidence of significant focal stenosis was noted. ASSESSMENT 56-year-old gentleman with left diabetic foot ulcer. PLAN I did review the patient's chart and agree with current management of this patient. I do see the patient was placed on broad-spectrum antibiotics following admission. The patient is on vancomycin and Zosyn. I informed the patient that I would recommend proceeding with an excisional surgical debridement at the bedside. The patient understood and agreed. Utilizing a sharp surgical curette, the blister was unroofed. There was binh purulent material within the blister itself. Anaerobic and aerobic wound cultures were obtained from this frankly purulent material. Fortunately, the underlying dermis beneath the blister remained to be intact. Fortunately, there was no evidence for necrosis of the underlying soft tissues beneath this blister region. Next, attention then focused towards the larger callus involving the left midfoot region. The callus was pared sharply utilizing the surgical curette. Within the central portion of this callus the patient did have an open portion of the wound that did tunnel to this blister region. Within the depth of the wound there was a component of some necrosis of the subcutaneous tissues. This necrotic tissue was debrided sharply until a minimal amount of bleeding began to occur. Fortunately, there was no evidence for visible bone or fascia within the depth of the wound. The patient tolerated this excisional surgical treatment without difficulty at the bedside. Silver Aquacel was then placed overlying the wound followed by Allevyn foam dressing. Orders were written to continue with same dressing. Would recommend continuing with broad-spectrum antibiotics. Will await his culture results and change antibiotics accordingly. Fortunately, it does not appear the patient has osteomyelitis at this juncture in time. Will continue to follow along in the patient's care during his hospitalization. ISELA
[2016-08-25] MEDS: TOUJEO INSULIN SQ SCH (21:05)
[2016-08-25] MEDS ORDERED: INSULIN GLARGINE HUM REC ANLOG 40 UNIT SQ SCH (22:00)
--- NOTE | 2016-08-25 23:00 | NUR ---
Educated pt on use of CPAP/Bipap. Pt was very apprehensive about the use of it while he sleeps. He fears that it will cause him to not get any sleep. Pt stated that he has tried it before and had a bad experience with the setting pressures. Assured pt of the benefits and that it may help him sleep better. Pt agreed that he would attempt using the CPAP tonight.
[2016-08-26] VITALS: BP 104/62; PULSE 82; RESP 20; TEMP 96.3; O2SAT 95
[2016-08-26] MEDS: PIPERACILLIN/TAZOBACTAM 3.375 G in NORMAL SALINE 100 ML IV SCH ×4 (00:04→18:34)
--- NOTE | 2016-08-26 01:55 | NUR ---
DRESSING SMALL AMT. BLEEDING TO L FOOT. ULCER BENEATH AMPUTATED GREAT TOE IS REDDENED WITH SM. AMT BLEEDING. DRESSING TO DEBRIDED AREA ON MID FOOT HAS LOOSENED WITH SM. AMT BLEEDING. REPLACED WITH AQUACEL AND MEPILEX
[2016-08-26 04:48] LABS: BASOPHILS % (AUTO) 0.4 % (0-2); HCT - HEMATOCRIT 35.9 % (41-53); HGB - HEMOGLOBIN 12.2 GM/DL (13.5-17.5); IMMATURE GRANULOCYTE # (AUTO) 0.02 T/MM3 (0.00-0.03); IMMATURE GRANULOCYTE % (AUTO) 0.2 % (0.0-0.5); LYMPHOCYTES # (AUTO) 2.3 T/MM3 (1-4.8); LYMPHOCYTES % (AUTO) 29.2 % (23-45); MEAN CORPUSCULAR HGB 31.3 UUG (26-34); MEAN CORPUSCULAR VOLUME 92.1 UM3 (80-100); MEAN PLATELET VOLUME 11.4 UM3 (9.4-12.4); MONOCYTES # (AUTO) 0.7 T/MM3 (0-0.8); MONOCYTES % (AUTO) 8.2 % (0-9.0)
[2016-08-26 04:57] LABS: ALBUMIN 3.2 G/DL (3.5-5.0); ALBUMIN/GLOBULIN RATIO 1.1 RATIO (1.1-2.2); ALKALINE PHOSPHATASE 45 U/L (38-126); ALT (SGPT) 35 U/L (21-72); ANION GAP 11 MEQ/L (5-15); AST (SGOT) 24 U/L (17-59); BUN/CREATININE RATIO 18 RATIO (6-26); CALCIUM 8.4 MG/DL (8.4-10.2); CHLORIDE 103 MEQ/L (98-107); CO2 - CARBON DIOXIDE 27 MEQ/L (22-30); CREATININE 1.1 MG/DL (0.8-1.5); GLOMERULAR FILTRATION RATE 69; GLUCOSE 115 MG/DL (75-110); MAGNESIUM 1.9 MG/DL (1.6-2.3); POTASSIUM 3.9 MEQ/L (3.6-5); SODIUM 141 MEQ/L (134-144); TOTAL PROTEIN 6.1 G/DL (6.3-8.2)
--- NOTE | 2016-08-26 05:43 | NUR ---
REST SLEEPS RESTFULLY SINCE MIDNIGHT, RESP. UNLABORED. REPOSITIONS SELF FOR COMFORT
[2016-08-26 06:52] LABS: HEMOGLOBIN A1C 9.1 % (6.1-7.9)
[2016-08-26 08:04] VITALS: BP 102/65; PULSE 74; RESP 20; TEMP 97.3; O2SAT 96
[2016-08-26] MEDS: ASPIRIN *EC* 81mg TABLET PO SCH (08:43)
[2016-08-26] MEDS: METFORMIN 1,000 MG TABLET PO SCH ×2 (08:44→17:41)
[2016-08-26] MEDS: LISINOPRIL 5 MG TABLET PO SCH (08:44)
[2016-08-26] MEDS: CARVEDILOL 6.25 MG TABLET PO SCH ×2 (08:44→17:41)
[2016-08-26] MEDS: FUROSEMIDE 40 MG TABLET PO SCH (08:44)
[2016-08-26] MEDS: VANCOMYCIN 2 G in NORMAL SALINE 500 ML IV SCH ×2 (08:45→21:24)
[2016-08-26] MEDS: INSULIN ASPART 100 UNIT/ML SQ SCH ×3 (08:45→18:31)
[2016-08-26] MEDS: FLUTICASONE NASAL SPRAY 50 MCG EA NOSTRIL SCH (09:35)
--- NOTE | 2016-08-26 10:06 | NUR ---
PICC LINE. ASKED DR ORTIZ IF PT WOULD NEED SKILLED NURSING VANCO TREATMENT. DR ORTIZ STATED SHE IS NOT SURE AT THIS TIME AND IS WAITING FOR THE CULTURE TO COME BACK. INFORMED PT AND INFUSION THERAPY. PT VERBALIZED UNDERSTANDING.
--- NOTE | 2016-08-26 10:26 | NUR ---
Glycemic control False positive; periodic hyperglycemia but no two consecutive BG >180 mg/dl. Diet: CC 2200, which is lower kcal/CHO than requirement. Basal, bolus and SS insulin are begin given. Basal insulin dose is 50% of home basal insulin dose.
[2016-08-26] MEDS: INSULIN ASPART 100 UNIT/ML SQ PRN (10:38)
--- NOTE | 2016-08-26 12:10 | NUR ---
DM Screen Diet: Cardiac CC 2200 A1C: 9.1, Diabetic foot ulcer Patient verbalized positives to all diabetes self-care behaviors. States that he monitors BS 6x/daily but stated that most of his readings were over 180. Patient revealed that he once was 600lbs and had eventually made it to an even 200lbs once before. Patient reports trying to make active strides toward eating healthy and controlling his blood sugars. States he knows general concept of eating a low-carb diet but would like a more [id number]-[id number] technical understanding of carbs and portion sizes. internet marketing executive reviewed "Healthy Eating 1,2,3" handout and "Food choices on your plate for blood sugar control" brochure with patient. internet marketing executive explained what carb portions were and the importance of carb counting in managing BS. internet marketing executive explained how to incorporate carb counting in his daily allowance carb grams. internet marketing executive also stressed the importance of avoiding spikes and plunges in BS. [facility] contact information was provided RD available @ [phone] Addendum: 08/26/16 at [address] Above note approved by [employer].
--- NOTE | 2016-08-26 14:42 | PNPDOC ---
Subjective Date DATE: 08/26/16 TIME: 14:15 Subjective Mr. Alas reports is tired of being in the hospital. He feels much better today with 2/10 pain in his feet largely due to neuropathy but some pain which she a beats to the ulcer on the plantar left foot. Pain is adequately controlled with current medications. He denied dyspnea but has chronic cough as before. He denied chest pain, nausea, or lightheadedness. Objective Vital Signs Vital signs Vital Signs Date Time Temp Pulse Resp B/P Pulse Ox O2 Delivery O2 Flow Rate FiO2 08/26/16 08:04 97.3 74 20 102/65 96 Room Air 08/26/16 00:00 21 I/O 1629/1542 EXAM General-NAD, alert HEENT-conjugate gaze, conjunctiva clear, sclera anicteric, oropharynx clear without evidence of thrush Lungs-respirations nonlabored, airflow good, anterior/posterior lung carr clear Cardiac-regular rhythm, S1-S2 Abd-soft, nontender, obese, bowel sounds present Ext-without edema, wound on the plantar surface left foot dressed-Dr. Medeiros' s notes reviewed for wound description Neuro-decreased sensation below the knees bilaterally Psych-mild anxiety demonstrated Height (Feet): 5 Height (Inches): 11.00 Weight (Kilograms): 126.500 Laboratory Laboratory Laboratory Tests 08/24/16 19:02 08/25/16 05:33 08/26/16 04:17 Laboratory Tests 08/24/16 19:03 08/25/16 05:33 08/26/16 04:17 Blood sugars today 75-216; range yesterday 101-189 Microbiology Microbiology Microbiology Date/Time Source Procedure Growth Status 08/24/16 19:02 Peripheral/Iv Start Blood Culture - Preliminary NO GROWTH AFTER 24 HOURS Resulted 08/24/16 18:57 Peripheral/Iv Start Blood Culture - Preliminary NO GROWTH AFTER 24 HOURS Resulted 08/25/16 14:12 Foot, Non-Surgical Site Left Gram Stain - Final Resulted 08/25/16 14:12 - Preliminary Staphylococcus Aureus Gram Negative Denis Resulted Sepsis Diagnostic Criteria Sepsis Confirmed/Suspected Infection: Yes SIRS Criteria: WBC >=12,000 or <=4,000 Severe Sepsis None Seen Assessment & Plan Problems: (1) Diabetic infection of left foot Status: Acute Assessment & Plan: IV vancomycin and Zosyn. 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 Just over 1 minute </= 89%. Assessment Wound debridement at bedside by Dr. Medeiros yesterday evening, additional surgical intervention not anticipated. Culture with staph aureus and unidentified gram-negative denis-sensitivities pending on both. Continue current antibiotics pending further information. Anticipate discharge in the near future, antibiotics will limit discharge planning. Blood sugar control in adequate overall, increase NovoLog slightly today. Currently on half usual home basal dose with low normal fasting glucose. Renal function stable, oxygenating well. Nocturnal oximetry obtained first night of hospitalization reviewed-minimal desaturation but overall pattern suggestive of sleep apnea. Just over 1 minute </= 89%, does not qualify for home oxygen but I have advised the patient he would benefit from formal sleep study at some point in the future. Patient reports poor tolerance of CPAP overnight. Resume Brilinta. Plan/Intensity of Service Nocturnal oximetry reviewed by myself, laboratory data reviewed, discussed with case management. DVT Prophylaxis: Lovenox Code Status Full Code Hospital Course Summary Disclaimer The hospital course summary below is not to be considered part of the above Progress Note. Hospital Course Summary 08/24-02/01 Broad-spectrum antibiotics initiated with vancomycin and Zosyn for diabetic foot wound. Dr. Medeiros consulted and case discussed with him earlier today. Echocardiogram approximate one year ago with ejection fraction 40%-continue carvedilol, aspirin, lisinopril, and Lasix. Patient reports spironolactone was recently discontinued due to tendency to have low blood pressures. Will initiate telemetry and monitor magnesium with next lab work. A1c to be screened in the morning, office records indicate A1c of approximately 10 3 months ago. Continue scheduled insulins and metformin. Brilinta on hold pending surgical intervention. 08/26/16 Wound debridement at bedside by Dr. Medeiros yesterday evening, additional surgical intervention not anticipated. Culture with staph aureus and unidentified gram-negative denis-sensitivities pending on both. Continue current antibiotics pending further information. Anticipate discharge in the near future, antibiotics will limit discharge planning. Blood sugar control in adequate overall, increase NovoLog slightly today. Currently on half usual home basal dose with low normal fasting glucose. Renal function stable, oxygenating well. Nocturnal oximetry obtained first night of hospitalization reviewed-minimal desaturation but overall pattern suggestive of sleep apnea. Just over 1 minute </= 89%, does not qualify for home oxygen but I have advised the patient he would benefit from formal sleep study at some point in the future. Patient reports poor tolerance of CPAP overnight. Resume Krish. KIRSTEN ORTIZ MD August 26, 2016 14:25
[2016-08-26 16:09] VITALS: BP 96/63; PULSE 82; RESP 16; TEMP 98.3; O2SAT 97
[2016-08-26 16:15] VITALS: BP 101/67
--- NOTE | 2016-08-26 18:05 | PNF ---
DATE OF SERVICE August 26, 2016 FINDINGS Mr. Alas today was without complaints. He is experiencing some minimal discomfort associated with his left foot. EXAM VITAL SIGNS: Afebrile, normotensive. Last recorded vitals include temperature 98.3, pulse 82, respirations 16, blood pressure 101/67, SAO2 97% on room air. HEENT: Normocephalic. Pupils are equally round and react to light and accommodation. CHEST: Clear to auscultation bilaterally. HEART: Regular rate and rhythm. Normal S1 and S2 without gallops, murmurs or clicks. EXTREMITIES: Attention was focused to the left foot. Dressing had pulled away from the distal aspect of the wound. The wound itself appears stable. There has been no further progression of necrosis. The dermis that was present beneath the original blister remains to be pink and viable. The periwound erythema has dissipated as well. ASSESSMENT 56-year-old gentleman with Maldonado grade II left diabetic foot ulcer with associated abscess, status post incision and drainage and excisional surgical debridement. Patient currently doing well. PLAN Wound cultures are revealing gram-negative rods and Staph. Aureus. His arterial duplex scan did not reveal any evidence for significant arterial stenosis. Would recommend continuing with ongoing antibiotics and local wound care. Repeat dressing was placed this evening consisting of Silver Aquacel and Allevyn foam dressing. ALEMD
--- NOTE | 2016-08-26 20:00 | NUR ---
SUMMARY PT IS ALERT AND ORIENTED X3. RA. LUNGS CLEAR. LEFT FOOT ULCER DRESSING IN PLACED. PT WAS EDUCATED IN DIABETES CARE SUCH MEDS. A1C, AND FOOT CARE. GOOD PO INTAKE. PARTICIPATE IN TREATMENTS AND CARE. ALSO, PT ASKS QUESTIONS ABOUT DISEASE PROCESS, TREATMENTS, AND MEDS. HE HAD SOME VISITORS TODAY. CALL LIGHT IS WITHIN REACH.
[2016-08-26] MEDS: TICAGRELOR 90 MG TABLET PO SCH (21:00)
[2016-08-26] MEDS: TOUJEO INSULIN SQ SCH (21:25)
[2016-08-27 00:16] VITALS: BP 92/56; PULSE 91; RESP 18; TEMP 98.3; O2SAT 98
[2016-08-27] MEDS: PIPERACILLIN/TAZOBACTAM 3.375 G in NORMAL SALINE 100 ML IV SCH ×2 (00:20→06:16)
[2016-08-27] MEDS: NS 500 ML IV PRN (00:21)
--- NOTE | 2016-08-27 06:49 | NUR ---
SUMMARY PT IS ALERT AND ORIENTED. PT IS AP AND DIOMEDES IN THE ROOM. TAKES HIMSELF TO THE BATHROOM. HE WAS GIVEN PAIN MEDICATION ONCE FOR HIS LEFT FOOT WOUND. CONTINUES ON ANTIBIOTICS THAT HE TOLERATES WELL. 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
[2016-08-27 08:00] VITALS: BP 105/73; PULSE 74; RESP 18; TEMP 98.2; O2SAT 95
--- NOTE | 2016-08-27 08:00 | NUR ---
Assessment and PRN med Reports received from Fantasma Varma RN. Pt asks for pain med be given with since pain 09/25 but will increase to 8-9 if not received [place]. Pt received [place] 7.5 mg po one for pain left foot.
[2016-08-27] MEDS: CARVEDILOL 6.25 MG TABLET PO SCH (08:08)
[2016-08-27] MEDS: INSULIN ASPART 100 UNIT/ML SQ SCH ×2 (08:08→12:21)
[2016-08-27] MEDS: METFORMIN 1,000 MG TABLET PO SCH (08:08)
[2016-08-27] MEDS: ASPIRIN *EC* 81mg TABLET PO SCH (08:09)
[2016-08-27] MEDS: FUROSEMIDE 40 MG TABLET PO SCH (08:09)
[2016-08-27] MEDS: LISINOPRIL 5 MG TABLET PO SCH (08:10)
[2016-08-27] MEDS: ENOXAPARIN 40 MG/0.4 ML INJECTION SQ SCH (08:10)
[2016-08-27] MEDS: TICAGRELOR 90 MG TABLET PO SCH (08:14)
--- NOTE | 2016-08-27 09:00 | NUR ---
PRN Med response Pt reports that pain now at level 2/10.
--- NOTE | 2016-08-27 10:20 | NUR ---
[facility] CM VISITED PT. PT WILL D/C HOME TODAY WITH [facility]. CM WILL PROVIDE PT WITH AT [employer] [facility] TO GET HOME AND MEDICATIONS AT [facility] [address]. PT IS AWARE TO CONTACT CM IF NEEDS [facility].
[2016-08-27] MEDS: FLUTICASONE NASAL SPRAY 50 MCG EA NOSTRIL SCH (11:07)
[2016-08-27] MEDS ORDERED: HYDR-4246 PO (11:40)
[2016-08-27] MEDS ORDERED: LACT1CAP58 PO (11:40)
[2016-08-27] MEDS ORDERED: CIPR-280 PO (11:40)
[2016-08-27] MEDS ORDERED: CLIN300C86 PO (11:40)
--- NOTE | 2016-08-27 11:42 | DSPDOC ---
IZABELA CLARK RECREATIONAL VEHICLE REPAIRER 08/27/16 1113: General Date Date DATE: 08/27/16 TIME: 11:10 Attending Physician Rubi Gamboa MD Admitting Physician Rubi Gamboa MD Consulting Physician Jessie Cheek MD,Facs,Cws Admitting Diagnosis diabetic infection, fever Discharge Diagnosis Diabetic foot ulcer with abscess: Maldonado grade II Procedures Bedside incision and drainage and excisional surgical debridement by Dr. Cheek Laboratory Laboratory Tests Test 08/26/16 04:17 08/26/16 06:04 08/26/16 10:18 08/26/16 18:29 White Blood Count 8.0T/MM3 (4.5-11.0) Red Blood Count 3.90M/MM3 (4.50-5.90) Hemoglobin 12.2GM/DL (13.5-17.5) Hematocrit 35.9% (41-53) Mean Corpuscular Volume 92.1UM3 (80-100) Mean Corpuscular Hemoglobin 31.3UUG (26-34) Mean Corpuscular Hemoglobin Concent 34.0GM/DL (31-37) RDW Standard Deviation 40.0FL (36.9-50.2) Platelet Count 216T/MM3 (130-400) Mean Platelet Volume 11.4UM3 (9.4-12.4) Immature Granulocyte % (Auto) 0.2% (0.0-0.5) Neutrophils (%) (Auto) 62.0% (33-66) Lymphocytes (%) (Auto) 29.2% (23-45) Monocytes (%) (Auto) 8.2% (0-9.0) Eosinophils (%) (Auto) 0.0% (0-4) Basophils (%) (Auto) 0.4% (0-2) Absolute Immature Granulocyte (auto 0.02T/MM3 (0.00-0.03) Absolute Neutrophils (auto) 5.0T/MM3 (1.8-7.7) Absolute Lymphocytes (auto) 2.3T/MM3 (1-4.8) Absolute Monocytes (auto) 0.7T/MM3 (0-0.8) Absolute Eosinophils (auto) 0.0T/MM3 (0-0.5) Absolute Basophils (auto) 0.0T/MM3 (0-0.2) Turbidity < 20 (0-20) Sodium Level 141MEQ/L (134-144) Potassium Level 3.9MEQ/L (3.6-5) Chloride Level 103MEQ/L (98-107) Carbon Dioxide Level 27MEQ/L (22-30) Anion Gap 11MEQ/L (5-15) Blood Urea Nitrogen 20.0MG/DL (9-20) Creatinine 1.1MG/DL (0.8-1.5) Glomerular Filtration Rate Calc 69 BUN/Creatinine Ratio 18RATIO (6-26) Glucose Level 115MG/DL (75-110) Hemoglobin A1c 9.1% (6.1-7.9) Calculated Osmolality 275MOSM/KG (261-280) Calcium Level 8.4MG/DL (8.4-10.2) Magnesium Level 1.9MG/DL (1.6-2.3) Total Bilirubin 0.50MG/DL (0.20-1.30) Icterus Index < 2 (0-7) Aspartate Amino Transf (AST/SGOT) 24U/L (17-59) Alanine Aminotransferase (ALT/SGPT) 35U/L (21-72) Alkaline Phosphatase 45U/L (38-126) Total Protein 6.1G/DL (6.3-8.2) Albumin 3.2G/DL (3.5-5.0) Globulin 2.9G/DL (2.4-3.6) Albumin/Globulin Ratio 1.1RATIO (1.1-2.2) Chemistry Specimen Hemolysis < 15 (0-25) Glucometer 75mg/dL (75-110) 216mg/dL (75-110) 103mg/dL (75-110) Test 08/26/16 21:18 08/27/16 06:40 08/27/16 08:23 08/27/16 10:15 Glucometer 108mg/dL (75-110) 106mg/dL (75-110) 156mg/dL (75-110) Vancomycin Level Trough 28.38UG/ML (15-20) Microbiology Microbiology Date/Time Source Procedure Growth Status 08/24/16 19:02 Peripheral/Iv Start Blood Culture - Preliminary NO GROWTH AFTER 48 HOURS Resulted 08/24/16 18:57 Peripheral/Iv Start Blood Culture - Preliminary NO GROWTH AFTER 48 HOURS Resulted 08/25/16 14:12 Foot, Non-Surgical Site Left Gram Stain - Final Resulted 08/25/16 14:12 - Preliminary Staphylococcus Aureus Citrobacter Freundii Diphtheroid Bacillus Resulted Radiology Left foot x-ray 1. Status post amputation first digit at MTP joint. 2. No acute osseous abnormality, with no developing focal osteolysis involving distal tip of first metatarsal at site of nonhealing ulcer. Arterial ultrasound of both legs: No significant focal stenosis. History of Present Illness Mr. Alas is a very pleasant 56-year-old male with a history of diabetes mellitus and a left great toe that had to be amputated the past. He reportedly was supposed to be using a cam walker but doesn't like using it so has admittedly not been using it. His legal writing professor told him to increase his exercise so last week he increase his walking from one mild to 2 miles. He had some increased pain in his foot following this, but he thought it was just from the increased distance. With the increased pain this evening he finally looked at the time of his foot and was concerned with what he found. He looked at the bottom of his foot today and noticed a large blister appearing lesion and some swelling and wasn't feeling very well so came to the emergency room to get checked out. He thought he might have had a fever subjectively and in fact had one in the emergency room. X-ray performed in the emergency room demonstrates soft tissue involvement but superficially and on wet read no evidence of osteomyelitis. He was started on vancomycin in the emergency room and admitted for further care for the wound. Completed a 10 point review of systems otherwise. He complains of postnasal drip with a chronic cough, he has intermittent left-sided abdominal pain increases with Valsalva maneuver. He denies any. He's never had a colonoscopy. He has a history of congestive heart failure following his heart attack one year ago. He's been able to improve his activity and overall has been compliant with his medications. He does snore but denies a history of ARSH. Hospital Course Mr. Alas was admitted to the hospital on 08/24/16. He was started on broad- spectrum antibiotics including vancomycin and Zosyn. Dr. Cheek was consulted , and performed a bedside incision and drainage and excisional surgical debridement. Cultures ultimately grew out DILIA and Citrobacter. A dressing consisting of silver Aquasol and Allevyn foam was applied. Blood sugars were monitored and sugars were under fair control while hospitalized. Office records were reviewed showing an A1c of about 10%. He also has a history of chronic systolic heart failure with an EF of 40%. He has a history of hypertension and spironolactone was recently discontinued. There was concern about sleep apnea during the hospitalization, and would recommend a formal sleep study in the future. By 08/27/16, the patient was doing well. His white count was normal and he was afebrile. On exam, his lungs were clear, heart regular rate and rhythm and abdomen was benign. Foot dressing noted. He was set up with [facility], and they will continue with dressing changes. Given his dual organism diabetic foot ulcer, he will be prescribed on both clindamycin and Cipro. Probiotics were also recommended. We discussed his self-monitoring activities at home. He openly admitted that he does not do a good job of taking his insulin before meals, and often ends up taking them 30 minutes after eating. He will start to set an alarm to remind himself to take his insulin prior to meals. He will also start checking his feet on a regular basis. Recommend follow -up with both Dr. Cheek [facility]. Recheck BMP to follow up on renal status on 08/31/16. The patient was dismissed home in stable condition with a cab voucher. This is a general summation of Mr. Alas's hospital course. For more information, please refer to complete medical record. Time spent in discharge: 45 minutes. Problems: (1) Diabetic infection of left foot Status: Acute Assessment & Plan: IV vancomycin and Zosyn. 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 Just over 1 minute </= 89%. Code Status Full Code Home Meds Active Scripts Lactobacillus Rhamnosus GG (Culturelle) 1 Each Capsule, 1 CAP PO TIDWM for 14 Days, #42 CAP Prov:IZABELA CLARK Gael RECREATIONAL VEHICLE REPAIRER 08/27/16 Ciprofloxacin HCl (Ciprofloxacin HCl) 500 Mg Tablet, 1 TAB PO Q12H for 7 Days, # 14 TAB Prov:BLAZE CLARKSARAN Mayo RECREATIONAL VEHICLE REPAIRER 08/27/16 Clindamycin HCl (Clindamycin HCl) 300 Mg Capsule, 1 CAP PO QID for 7 Days, #28 CAP TAKE WITH A FULL GLASS OF WATER TO AVOID ESOPHAGEAL IRRITATION. Prov:EDUARDO,IZABELA D RECREATIONAL VEHICLE REPAIRER 08/27/16 Hydrocodone/Acetaminophen ([place] 5-325 Tablet) 5-325 Tablet, 1 TAB PO Q4H Y for PAIN, #16 TAB Prov:BLAZE CLARKSARAN Mayo RECREATIONAL VEHICLE REPAIRER 08/27/16 Reported Medications Fluticasone Propionate (Fluticasone Prop 50 mcg/actuation Nasal [place]) 120 [place] /16 G [place], 1 SPRAY EA NOSTRIL DAILY 08/24/16 Lisinopril (Lisinopril) 5 Mg Tablet, 5 MG PO DAILY 08/24/16 Insulin Aspart (Novolog Flexpen) 1 Unit Pen, 20 UNIT SQ TIDWM 08/24/16 Diphenhydramine HCl (Benadryl) 25 Mg Capsule, 25 MG PO Q4H Y for ALLERY SYMPTOMS 03/03/16 Carvedilol (Carvedilol) 6.25 Mg Tablet, 6.25 MG PO BIDWM 12/11/15 Furosemide (Furosemide) 40 Mg Tablet, 40 MG PO DAILY 12/11/15 Aspirin *EC* (Aspirin EC) 81 Mg Tablet.dr, 81 MG PO DAILY 12/11/15 Nitroglycerin (Nitroglycerin) 0.4 Mg Tab.subl, 0.4 MG SL Q5MIN Y for CHEST PAIN 12/11/15 Metformin HCl (Metformin HCl) 1,000 Mg Tablet, 1000 MG PO BIDWM 12/11/15 Insulin Glargine,Hum.rec.anlog (Toujeo Solostar) 300 Unit/1 Ml Insuln.pen, 40 UNIT SQ HS 12/11/15 Ticagrelor (Brilinta) 90 Mg Tablet, 90 MG PO BID 12/11/15 Face to Face Encounter I met with patient on the day of dismissal and discussed follow up appointments , medications, and safety plan. Discharge Disposition Discharged home, stable Copies To 1: JESSIE CHEEK MD, FACS, CWS Copies To 2: PAULO PACKER DO Documentation Requirements Documenting Diagnosis BMI Low or High, Diabetes BMI Low or High Assoc. dx for low or high BMI: Severe Obesity 35-39.9 Diabetes Diabetes Type: Type 2 Diabetes Is Diabetes Contolled?: Uncontolled Related to Diabetes: Related to RUBI GAMBOA MD 08/27/16 1638: Hospital Course I have independently evaluated and examined this patient. I reviewed the chart, the patient's history, and the RECREATIONAL VEHICLE REPAIRER's documented findings as above. We discussed and formulated the assessment and plan as above with additions as below: Mr. Alas was anxious for discharge and indicated adequate pain control with oral pain medications at this time. He denied fevers. He continues to worry about exercise and weight loss without aggravating the foot wound. He is aware of plans follow-up wound care clinic next week and transportation assistance has been coordinated by case management. Patient is alert and cooperative on examination, respirations are nonlabored and breath sounds clear. Nocturnal oximetry early in the hospitalization demonstrated a pattern suggestive of possible sleep apnea however minimal hypoxia was demonstrated with less than 2 minutes time with saturation</= 89%. Supplemental oxygen was not coordinated discharge as a result. All home medications resumed per prior instructions. Problems: Home Meds Active Scripts Lactobacillus Rhamnosus GG (Culturelle) 1 Each Capsule, 1 CAP PO TIDWM for 14 Days, #42 CAP Prov:IZABELA CLARK APRN 08/27/16 Ciprofloxacin HCl (Ciprofloxacin HCl) 500 Mg Tablet, 1 TAB PO Q12H for 7 Days, # 14 TAB Prov:IZABELA CLARK APRN 08/27/16 Clindamycin HCl (Clindamycin HCl) 300 Mg Capsule, 1 CAP PO QID for 7 Days, #28 CAP TAKE WITH A FULL GLASS OF WATER TO AVOID ESOPHAGEAL IRRITATION. Prov:IZABELA CLARK APRN 08/27/16 Hydrocodone/Acetaminophen ([place] 5-325 Tablet) 5-325 Tablet, 1 TAB PO Q4H Y for PAIN, #16 TAB Prov:IZABELA CLARK RECREATIONAL VEHICLE REPAIRER 08/27/16 Reported Medications Fluticasone Propionate (Fluticasone Prop 50 mcg/actuation Nasal [place]) 120 [place] /16 G [place], 1 SPRAY EA NOSTRIL DAILY 08/24/16 Lisinopril (Lisinopril) 5 Mg Tablet, 5 MG PO DAILY 08/24/16 Insulin Aspart (Novolog Flexpen) 1 Unit Pen, 20 UNIT SQ TIDWM 08/24/16 Diphenhydramine HCl (Benadryl) 25 Mg Capsule, 25 MG PO Q4H Y for ALLERY SYMPTOMS 03/03/16 Carvedilol (Carvedilol) 6.25 Mg Tablet, 6.25 MG PO BIDWM 12/11/15 Furosemide (Furosemide) 40 Mg Tablet, 40 MG PO DAILY 12/11/15 Aspirin *EC* (Aspirin EC) 81 Mg Tablet.dr, 81 MG PO DAILY 12/11/15 Nitroglycerin (Nitroglycerin) 0.4 Mg Tab.subl, 0.4 MG SL Q5MIN Y for CHEST PAIN 12/11/15 Metformin HCl (Metformin HCl) 1,000 Mg Tablet, 1000 MG PO BIDWM 12/11/15 Insulin Glargine,Hum.rec.anlog (Toujeo Solostar) 300 Unit/1 Ml Insuln.pen, 40 UNIT SQ HS 12/11/15 Ticagrelor (Brilinta) 90 Mg Tablet, 90 MG PO BID 12/11/15 Copies To 1: JESSIE CHEEK MD, FACS, CWS Copies To 2: PAULO PACKER KAREN D APRN August 27, 2016 11:13 RUBI GAMBOA MD August 27, 2016 16:38
--- NOTE | 2016-08-27 12:04 | NUR ---
CM PT HAS A CAB VOUCHER TO GO TO HIS WOUND CARE APPOINTMENT NEXT WEEK. PT IS AWARE THAT [facility] HAS TRANSPORTATION FOR DR APPOINTMENTS. PT IS AWARE TO CONTACT CM IF NEEDS [facility]ISE.
--- NOTE | 2016-08-27 13:45 | NUR ---
Dismissal Note. Pt given home instructions regarding medications to start and given 4 prescriptions to have filled. Pt verbalizes understanding of apptment with Dr. Medeiros and [facility]. Rx of lab drawn faxed to [facility]. Reviewed with patient bueno points of diabetic foot ulcer and to be attentive to fever, redness and increased pain of foot. Pt was dismissed in stable condition per w/c to main entrance accompanied by NT. Pt transportation by cab service with voucher provided.
== END 2016-08-27 13:45 | disposition home health service (06) | DRG 854 ==
LOC: ED 18:09 → EDHOLD 20:58 → MED 21:25
PROVIDERS: ADMIT Pediatrics; ATTEND Internal Medicine
PROC: 0JBR0ZZ Excision of Left Foot Subcutaneous Tissue and Fascia, Open Approach (ICD-10-PCS; principal; 2016-08-25)
PROC: 0HBNXZZ Excision of Left Foot Skin, External Approach (ICD-10-PCS; 2016-08-25)
DX: A41.9 Sepsis, unspecified organism (principal); I13.0 Hypertensive heart and chronic kidney disease with heart failure and stage 1 through stage 4 chronic kidney disease, or unspecified chronic kidney disease; I50.22 Chronic systolic (congestive) heart failure; E11.621 Type 2 diabetes mellitus with foot ulcer; L97.529 Non-pressure chronic ulcer of other part of left foot with unspecified severity; N18.2 Chronic kidney disease, stage 2 (mild); I25.10 Atherosclerotic heart disease of native coronary artery without angina pectoris; I25.5 Ischemic cardiomyopathy; E11.40 Type 2 diabetes mellitus with diabetic neuropathy, unspecified; E11.22 Type 2 diabetes mellitus with diabetic chronic kidney disease; E11.319 Type 2 diabetes mellitus with unspecified diabetic retinopathy without macular edema; Z89.412 Acquired absence of left great toe; Z79.4 Long term (current) use of insulin; Z79.82 Long term (current) use of aspirin; Z98.61 Coronary angioplasty status
CPT/HCPCS: 36415; 80048; 80053; 80202; 81003; 82948; 83036; 83605; 83735; 84145; 85025; 86140; 87040; 87070; 87075; 87076; 87077; 87147; 87181; 87186; 87205; 94002; 94762

== ENCOUNTER → 2016-08-30 | Outpatient (CLI) | payer BC ==
[~2016-08-30] MED LIST changes: +CIPR-280 PO; +CLIN300C86 PO; +FLUT16SP EA NOSTRIL; +HYDR-4246 PO; -INSU100C14 SQ; +INSU100I3 SQ; +LACT1CAP58 PO; +LISI-625 PO; -LISI2.5T2 PO; -UNKNOWN THYROID MED
[2016-08-30 15:01] LABS: ANION GAP 12 MEQ/L (5-15); BUN/CREATININE RATIO 18 RATIO (6-26); CHLORIDE 102 MEQ/L (98-107); CO2 - CARBON DIOXIDE 28 MEQ/L (22-30); GLOMERULAR FILTRATION RATE 77; GLUCOSE 209 MG/DL (75-110); POTASSIUM 4.6 MEQ/L (3.6-5); SODIUM 142 MEQ/L (134-144)
== END ==
LOC: LABN.NHH 14:37
PROVIDERS: ATTEND Internal Medicine
DX: Z51.81 Encounter for therapeutic drug level monitoring (principal)
CPT/HCPCS: 80048

== ENCOUNTER 2016-09-27 15:29 | Inpatient (IN) ==
[2016-09-27] MEDS ORDERED: NS 1,000 ML IV ONE (15:41)
[2016-09-27] MEDS ORDERED: ONDANSETRON 4 MG/2 ML INJECTION IVP ONE (15:47)
[2016-09-27] MEDS ORDERED: HYDROMORPHONE 2 MG/ML INJECTION IVP ONE (15:47)
[2016-09-27] MEDS ORDERED: PIPERACILLIN/TAZOBACTAM 3.375 GM in NS 100 ML IV ONE (15:55)
[2016-09-27] MEDS: SALINE FLUSH 10ml SYRINGE IVF PRN (15:55)
--- NOTE | 2016-09-27 16:49 | Emergency Department Report ---
Extremity Problem HPI - General Chief complaint: Extremity Problem,Nontraumatic Stated complaint: Fever/Wound Time Seen by Provider: 09/27/16 15:49 - Related Data Home Medications Medication Instructions Recorded Confirmed Aspirin [Aspirin EC] 81 mg PO HS #0 12/11/15 09/27/16 Carvedilol 6.25 mg PO BIDWM #0 12/11/15 09/27/16 Furosemide 40 mg PO DAILY #0 12/11/15 09/27/16 Insulin Glargine,Hum.rec.anlog 45 unit SQ HS #0 12/11/15 09/27/16 [Toujeo Solostar] Metformin HCl 1,000 mg PO BIDWM #0 12/11/15 09/27/16 Nitroglycerin 0.4 mg SL Q5MIN PRN #0 12/11/15 09/27/16 Ticagrelor [Brilinta] 90 mg PO BID #0 12/11/15 09/27/16 diphenhydrAMINE HCl [Benadryl] 25 mg PO Q4H PRN #0 03/03/16 09/27/16 Fluticasone Nasal [place] [Flonase] 1 spray EA NOSTRIL DAILY PRN #0 08/24/1604/03 Insulin Aspart [Novolog Flexpen] 10 - 20 unit SQ TIDWM #0 08/24/16 09/27/16 Lisinopril 5 mg PO DAILY #0 08/24/16 09/27/16 Previous Rx's Medication Instructions Recorded Amoxicillin/Potassium Clav 1 each PO BID #20 tablet 09/26/16 [Augmentin 875-125 Tablet] Hydrocodone/APAP 5/325 [[place] 1 tab PO Q6H PRN #15 tab 09/26/16 5/325] Allergies Allergy/AdvReac Type Severity Reaction Status Date / Time chlorpromazine Allergy Severe STOPPED Verified 09/27/16 16:21 BREATHING pregabalin [From Lyrica] Allergy Severe Suicidal Verified 09/27/16 16:22 Ideations [id number]-Yvt Reductase Allergy Unknown SPASMS Verified 09/27/16 16:21 Inhibitor PFSH Patient Stated Medical History Peripheral Neuropathy Yes Angina Yes Congestive Heart Failure Yes Hypertension Yes Myocardial Infarction Yes Asthma Yes Pneumonia Yes Diabetes Mellitus Type 2 Yes Gastroesophageal Reflux Yes Disease Hepatitis Yes Clotting Problems Yes: DVT Osteoarthritis Yes Other Musculoskeletal Yes: ARM FX Cellulitis Yes MRSA Yes: on chart but pt. denies Substance Use Disorder Yes: HX OF COCAINE USE Surgical History: Left great toe amputation. left foot wound debridement - Social History Smoking status: Never smoker Course Vital Signs Temperature 101.7 F H 09/27/16 16:00 Pulse Rate 122 H 09/27/16 16:00 Respiratory Rate 20 09/27/16 16:00 Blood Pressure 140/62 H 09/27/16 16:00 Pulse Oximetry 95 09/27/16 16:00 Temperature 101.7 F H 09/27/16 16:00 Pulse Rate 104 H 09/27/16 18:00 Respiratory Rate 20 09/27/16 18:00 Blood Pressure 106/56 09/27/16 18:00 Pulse Oximetry 95 09/27/16 18:00 Extremity Problem, Nontraumati - Lab Data Result diagrams: 09/27/16 15:58 09/27/16 15:58 Lab Results 09/27/16 09/27/16 09/27/16 Range/Units 15:58 15:58 15:58 WBC 18.1 H (4.5-11.0) T/MM3 RBC 3.95 L (4.50-5.90) M/MM3 Hgb 12.1 L (13.5-17.5) GM/DL Hct 36.5 L (41-53) % MCV 92.4 (80-100) UM3 MCH 30.6 (26-34) UUG MCHC 33.2 (31-37) GM/DL RDW Std Deviation 39.7 (36.9-50.2) FL Plt Count 205 (130-400) T/MM3 MPV 11.2 (9.4-12.4) UM3 Immature Gran % (Auto) Not performed Neut % (Auto) Not performed Lymph % (Auto) Not performed [place] % (Auto) Not performed Eos % (Auto) Not performed Baso % (Auto) Not performed Neut # Not performed Lymph # Not performed [place] # Not performed Baso # Not performed Abs Immat Gran (auto) Not performed Neutrophils % (Manual) 87.0 H (33-66) % Lymphocytes % (Manual) 6.0 L (23-45) % Monocytes % (Manual) 7.0 (0-9.0) % Neutrophils # (Manual) 15.7 H (1.8-7.7) T/MM3 Lymphocytes # (Manual) 1.1 (1-4.8) T/MM3 Monocytes # (Manual) 1.3 H (0-0.8) T/MM3 RBC Morph Comment Normal Turbidity < 20 (0-20) Sodium 137 (134-144) MEQ/L Potassium 4.7 (3.6-5) MEQ/L Chloride 98 (98-107) MEQ/L Carbon Dioxide 27 (22-30) MEQ/L Anion Gap 12 (5-15) MEQ/L BUN 30.0 H (9-20) MG/DL Creatinine 1.2 (0.8-1.5) MG/DL GFR Calculation 63 BUN/Creatinine Ratio 25 (6-26) RATIO Glucose 202 H (75-110) MG/DL Calculated Osmolality 276 (261-280) MOSM/KG Calcium 8.8 (8.4-10.2) MG/DL Total Bilirubin 1.30 (0.20-1.30) MG/DL Conjugated Bilirubin 0.00 (0.00-0.30) MG/DL Unconjugated Bilirubin 0.90 (0.00-11.10) MG/DL Icterus Index < 2 (0-7) AST 32 (17-59) U/L ALT 51 (21-72) U/L Alkaline Phosphatase 59 (38-126) U/L C-Reactive Protein 254.1 H (0-9) MG/L Total Protein 7.2 (6.3-8.2) G/DL Albumin 3.9 (3.5-5.0) G/DL Globulin 3.3 (2.4-3.6) G/DL Albumin/Globulin Ratio 1.2 (1.1-2.2) RATIO Plasma Lactate 2.0 (0.6-2.2) MMOL/L Procalcitonin 0.66 NG/ML Specimen Hemolysis < 15 (0-25) Disposition Clinical Impression: Cellulitis Qualifiers: Site of cellulitis: extremity Site of cellulitis of extremity: lower extremity Laterality: left Qualified Code(s): L03.116 - Cellulitis of left lower limb Sepsis Qualifiers: Sepsis type: sepsis due to unspecified organism Qualified Code(s): A41.9 - Sepsis, unspecified organism Disposition: To [facility] [place] Acute Care Condition: Stable Prescriptions: No Action Insulin Glargine,Hum.rec.anlog [Todelisa Solazeemar] 45 unit SQ HS #0 Metformin HCl 1,000 mg PO BIDWM #0 Nitroglycerin 0.4 mg SL Q5MIN PRN #0 PRN Reason: CHEST PAIN Aspirin [Aspirin EC] 81 mg PO HS #0 Furosemide 40 mg PO DAILY #0 Carvedilol 6.25 mg PO BIDWM #0 Lisinopril 5 mg PO DAILY #0 Fluticasone Nasal [place] [Flonase] 1 spray EA NOSTRIL DAILY PRN #0 PRN Reason: Prn Orders Hydrocodone/APAP 5/325 [[place] 5/325] 1 tab PO Q6H PRN #15 tab PRN Reason: Pain Ticagrelor [Brilinta] 90 mg PO BID #0 diphenhydrAMINE HCl [Benadryl] 25 mg PO Q4H PRN #0 PRN Reason: ALLERY SYMPTOMS Insulin Aspart [Novolog Flexpen] 10 - 20 unit SQ TIDWM #0 Amoxicillin/Potassium Clav [Augmentin 875-125 Tablet] 1 each PO BID #20 tablet Referrals: Vadim Hayes DO [Family Provider] - Time of Disposition: 18:28
[2016-09-27] MEDS: NS 1,000 ML IV SCH ×3 (17:32→21:11)
[2016-09-27] MEDS ORDERED: ENOXAPARIN 40 MG/0.4 ML INJECTION SQ SCH (20:30)
[2016-09-27] MEDS ORDERED: GLUCOSE ORAL GEL 40% 37.5gm PO PRN (20:31)
[2016-09-27] MEDS ORDERED: DEXTROSE 50% SYRINGE 50ml (1 AMP) IVP PRN (20:33)
[2016-09-27] MEDS ORDERED: NITROGLYCERIN 0.4 MG SUBLINGUAL TABLET SL PRN (20:33)
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
[2016-09-27] MEDS: HYDROMORPHONE 2 MG/ML INJECTION IVP PRN ×2 (21:12→23:19)
[2016-09-27] MEDS: INSULIN GLARGINE 100unit/ml INJECTION SQ SCH (22:00)
[2016-09-27] MEDS: PIPERACILLIN/TAZOBACTAM 3.375 GM in NS 100 ML IV SCH (22:15)
[2016-09-27] MEDS: ASPIRIN *EC* 81 MG TABLET PO SCH (22:19)
[2016-09-27] MEDS: INSULIN ASPART 100unit/ml INJECTION SQ PRN (22:27)
[2016-09-28] MEDS: NS 1,000 ML IV SCH ×3 (00:12→17:19)
[2016-09-28] MEDS: HYDROCODONE/APAP 5mg/325mg TABLET PO PRN ×2 (00:24→22:34)
[2016-09-28] MEDS: PIPERACILLIN/TAZOBACTAM 3.375 GM in NS 100 ML IV SCH ×4 (04:27→21:22)
[2016-09-28] MEDS: HYDROMORPHONE 2 MG/ML INJECTION IVP PRN ×4 (06:23→20:27)
[2016-09-28] MEDS: INSULIN ASPART 100unit/ml INJECTION SQ PRN ×2 (06:24→21:23)
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
[2016-09-28] MEDS: ONDANSETRON 4 MG/2 ML INJECTION IVP PRN ×2 (08:22→19:28)
--- NOTE | 2016-09-28 09:00 | Ultrasound Report ---
Indication: left leg swelling, history of multiple DVTs PROCEDURE: US venous doppler LE LT: Encounter: Initial Comparison: None Technique: Color Doppler duplex and grayscale sonographic imaging of the left lower extremity was performed. Findings: There is probable chronic thrombus along the superficial femoral and distal popliteal veins which is nonocclusive. This appears predominantly adherent along the peripheral chakraborty of the vessel rather than central. Common femoral vein is patent and compressible. Posterior tibial veins are patent. Impression: Probable chronic nonocclusive thrombus in the superficial femoral and popliteal veins. .
[2016-09-28] MEDS: FLUTICASONE NASAL SPRAY 50mcg EA NOSTRIL PRN (09:22)
[2016-09-28] MEDS: INSULIN ASPART 100unit/ml INJECTION SQ SCH ×3 (09:26→17:19)
--- NOTE | 2016-09-28 12:05 | Progress Note ---
Subjective: The patient states that he feels fatigued and his left foot continues to be painful, but the dilaudid does help. He denies any shortness of breath but has his chronic cough. He denies any chest pain or abdominal pain. He feels nauseated and he thinks that's because he is hungry. He had some continued fevers overnight. He is urinating well. Blood pressure is occasionally borderline low but he denies lightheadedness. Last blood pressure sitting is 109 /73. Objective Vital signs: Temp Pulse Resp BP Pulse Ox 98.8 F 91 26 H 84/60 95 09/28/16 08:00 09/28/16 11:00 09/28/16 11:00 09/28/16 11:00 09/28/16 11:00 Weight: 141.2 kg Comments: Urine output is over 1 L since admission. IV fluids so far is 5.9 L GEN-alert, oriented, no acute distress HEENT-sclera anicteric, oropharynx is moist NECK-supple CV-regular rate and rhythm without murmur CHEST-clear to auscultation bilaterally ABD-soft, nontender, nondistended with positive bowel sounds -no Ramos EXT-patient continues to have significant edema of the left foot and lower leg. Has erythema around the foot and the foot is tender to palpation. There is no swelling in the right leg NEURO-no focal deficits SKIN-as described above under extremities Results - Labs CBC & Chem 7: 09/28/16 03:06 09/28/16 03:06 Labs: Lactate was 2.0, and 1.2, then 0.7 Blood cultures have been obtained and are pending. D-dimer is pending. TSH is normal. Calcium is low at 7.7. A BUN is low at 3.1. - Imaging and Cardiology Venous US Additional comments: Venous Doppler of the left lower extremity shows probable chronic thrombus which is nonocclusive in the superficial femoral and popliteal veins Arterial Doppler done 08/25/2016 of the left leg showed no significant stenosis Assessment and Plan Assessment and Plan: 09/28/2016 Impression Severe sepsis with hypotension responding to IV fluid bolus Infected Diabetic left foot wound Left foot and leg edema likely secondary to cellulitis Nonocclusive thrombus in the superficial femoral and popliteal veins is probably chronic, check d-dimer Type 2 diabetes mellitus currently poorly controlled Coronary artery disease Congestive heart failure Peripheral neuropathy Hypertension anemia Possible obstructive sleep apnea Plan Continue Zosyn and vancomycin for infected diabetic foot wound. Dr. Medeiros was consulted and plans for I&D later today. He will obtain deep wound cultures. We'll consult infectious disease to see tomorrow. Check d-dimer. Continue usual home insulin and give sliding scale insulin as well. Monitor Accu -Cheks. Continue Lovenox for DVT prophylaxis Metformin, antihypertensives, and Lasix are on hold at this time. Continue to monitor closely for fluid overload after fluid resuscitation in a patient with history of CHF. Sepsis Assessment - Evaluation Sepsis screening result: Sepsis Risk - Focused Exam Vital Signs Temp Pulse Resp BP Pulse Ox 09/28/16 11:00 91 26 H 84/60 95 09/28/16 10:00 94 22 106/63 94 09/28/16 09:00 98 24 110/68 93 09/28/16 08:00 98.8 F 92 16 101/65 94 09/28/16 07:00 90 19 101/57 92 09/28/16 06:00 87 20 124/71 92 09/28/16 05:00 96 21 98/66 97 09/28/16 04:00 99.4 F 92 20 101/57 92 09/28/16 03:00 95 23 106/57 91 09/28/16 02:00 98 21 102/56 91 09/28/16 01:00 99 21 148/81 H 91 Capillary refill: < 2-3 Seconds Hospital Course Summary Disclaimer: The visit summary below is not to be considered part of the above Progress Note.
--- NOTE | 2016-09-28 13:52 | Consultation ---
DATE OF CONSULTATION 09/28/2016 FINDINGS Mr. Alas is a 56-year-old gentleman who is known my wound care/surgical practice. I actually took care of the patient about a month ago as a result of the left diabetic foot ulceration. He did undergo debridement and advanced wound dressings on an outpatient basis. His foot had shown marked improvement upon his last wound center visit. Unfortunately, the patient, over the course of the last week, has developed a recurrent infection involving his left foot. He recently presented to our ER facility and was placed on oral antibiotics. Shortly after his discharge, however, he began to experience nausea and vomiting and became febrile with a temperature of 102. The patient presented to our wound center for further evaluation and was subsequently admitted to the hospital for further evaluation. The patient states that his left foot has become significantly more red and swollen. It also has become significantly more tender in nature. PAST MEDICAL HISTORY Performed by my nurse practitioner, Ismael Ewing. PAST SURGICAL HISTORY Performed by my nurse practitioner, Ismael Ewing. MEDICATIONS Performed by my nurse practitioner, Ismael Ewing. ALLERGIES Performed by my nurse practitioner, Ismael Ewing. SOCIAL HISTORY Performed by my nurse practitioner, Ismael Ewing. FAMILY HISTORY Performed by my nurse practitioner, Ismael Ewing. REVIEW OF SYSTEMS Performed by my nurse practitionerIsmael. PHYSICAL EXAMINATION GENERAL: The patient is a 56-year-old gentleman who this morning did not appear to be in acute distress. VITALS: Temperature 99.4, pulse 90, respirations 19, blood pressure 101/57. HEENT: Normocephalic. Pupils are equal, round and reactive to light and accommodation. NECK: Supple without lymphadenopathy. CHEST: Clear to auscultation bilaterally. HEART: Regular rate and rhythm. Normal S1 and S2 without gallops, murmurs or clicks. ABDOMEN: Palpation of the abdomen reveals it to be soft and nontender. I do not appreciate any evidence for hepatosplenomegaly or abnormal masses. EXTREMITIES: Attention was focused to his left foot. Left great toe is absent as a result of his prior great toe amputation. He has significant edema and erythema involving the dorsum and plantar aspect of the foot. The edges of the erythema have been marked out percutaneously with an ink pen. There is a callus that has been present previously overlying the first metatarsal head which has been pared previously. There is a wound dressing overlying the anatomic location of the left fourth metatarsal head. Wound dressing was removed. There is a small opening on the order about 8 mm in diameter at this location. A sterile Q-tip was placed within the wound and was able to be advanced in a distal fashion towards the base of the fourth toe. It was able to be advanced perhaps a centimeter beneath the surface of the skin. It is hard to evaluate the underlying subcutaneous tissues to see if indeed there is some necrotic material. It does appear that the Q-tip does also course into the midfoot and one can appreciate some bone beneath the wound. It is hard to tell whether or not there is intact fascia covering the bone or whether or not the bone is actually able to be probed in nature. NEURO: Cranial nerves II-XII grossly intact. Patient is without focal motor or sensory deficits. LABORATORY/RADIOGRAPH EVALUATION The patient had a CBC upon admission. His white count was 18.1. He did have a left shift with 87% neutrophils. BMP was obtained and found to be essentially within normal limits. BUN was elevated at 30. Glucose was elevated at 202. CRP was obtained and found to be significantly elevated at 254. Procalcitonin was normal at 0.66. ASSESSMENT 56-year-old gentleman with a left diabetic foot ulcer. Patient with associated sepsis. PLAN I agree with the current management of this patient. He was placed in the ICU and begun on IV fluids for resuscitative measures for his sepsis. He was begun on broad-spectrum antibiotics. He is on Zosyn 3.375 g IV q.6h. Additionally, he is on vancomycin today. From a surgical standpoint, I would recommend we go ahead and proceed with excisional surgical debridement later today. I informed the patient that I would recommend that we take him to the operative suite this afternoon and essentially open up the surface of the skin overlying the underlying wound. This would allow one then to evaluate the underlying tissues. If indeed there is binh necrosis of the subcutaneous tissues and perhaps tendinous structures within the midfoot, would then proceed with appropriate excisional surgical debridement depending on intraoperative findings. I did discuss with the patient what this would entail and its associated risk which included, but was not limited to, bleeding, progression of infection. Additionally, if the wound is of moderate size, one may also wish to proceed with placement of a wound VAC following debridement. The patient understood and agreed to the proposed plan at this time. ISELA
[2016-09-28] MEDS ORDERED: BUPIVACAINE 0.25%/EPI 1:200,000 30ml SDV ONE (15:25)
--- NOTE | 2016-09-28 16:11 | Anesthesia Preoperative Report ---
Anesthesia Preoperative Record - Date and Time Date: 09/28/16 NPO Since Date: 09/27/16 NPO Since Time: 00:00 Allergies/Adverse Reactions: Allergies Allergy/AdvReac Type Severity Reaction Status Date / Time chlorpromazine Allergy Severe STOPPED Verified 09/27/16 16:21 BREATHING pregabalin [From Lyrica] Allergy Severe Suicidal Verified 09/27/16 16:22 Ideations Cktdesn-Jnb-Nmc Reductase Allergy Unknown SPASMS Verified 09/27/16 16:21 Inhibitor - Vital Signs Vital Signs: Temp Pulse Resp BP Pulse Ox 98.6 F 88 19 119/73 95 09/28/16 14:00 09/28/16 14:59 09/28/16 14:59 09/28/16 15:00 09/28/16 14:59 Height and Weight: Height 1.78 m Weight 141.2 kg Body Mass Index 39.7 - Medications Inpatient Medications: Current Medications Acetaminophen/Hydrocodone Bitart ([place] 5/325) 1 tab PO Q6H PRN PRN Reason: Pain Last Admin: 09/28/16 00:24 Dose: 1 tab Aspirin (Ecotrin) 81 mg PO HS RADHA Last Admin: 09/27/16 22:19 Dose: 81 mg Dextrose (D50%W) 25 ml IVP PRN PRN PRN Reason: Hypoglycemia Diphenhydramine HCl (Benadryl) 25 mg PO Q4H PRN PRN Reason: ALLERGY Enoxaparin Sodium (Lovenox) 40 mg SQ 2000 [facility] Fluticasone Propionate (Flonase) 1 spray EA NOSTRIL DAILY PRN Last Admin: 09/28/16 09:22 Dose: 1 spray Glucose (Glutose 15) 37.5 gm PO PRN PRN PRN Reason: Hypoglycemia Hydromorphone HCl (Dilaudid) 0.5 mg IVP Q2H PRN PRN Reason: Pain Last Admin: 09/28/16 15:31 Dose: 0.5 mg Piperacillin Sod/Tazobactam (Sod 3.375 gm/ Sodium Chloride) 100 mls @ 200 mls/ hr IV Q6H RADHA Last Infusion: 09/28/16 15:21 Dose: Infused Sodium Chloride (Normal Saline) 1,000 mls @ 100 mls/hr IV .Q10H RADHA Last Infusion: 09/28/16 14:00 Dose: 100 mls/hr Vancomycin HCl 1,750 mg/ (Sodium Chloride) 500 mls @ 250 mls/hr IV Q12H [facility] Last Infusion: 09/28/16 12:20 Dose: Infused Insulin Aspart (Novolog) 0 unit SQ SS PRN; Protocol PRN Reason: Hyperglycemia Last Admin: 09/28/16 06:24 Dose: 1 unit Insulin Aspart (Novolog) 10 unit SQ TIDWM [facility] Last Admin: 09/28/16 12:03 Dose: Not Given Insulin Glargine (Lantus) 45 unit SQ HS [facility] Last Admin: 09/27/16 22:00 Dose: 45 unit Metoclopramide HCl (Reglan) 5 mg IVP Q6H PRN PRN Reason: Nausea Nitroglycerin (Nitrostat) 0.4 mg SL Q5MIN PRN PRN Reason: CP Ondansetron HCl (Zofran) 4 mg IVP Q6H PRN PRN Reason: Nausea Last Admin: 09/28/16 08:22 Dose: 4 mg Sodium Chloride (Iv Flush) 10 - 80 ml IVF PRN PRN PRN Reason: Flushing Last Admin: 09/27/16 15:55 Dose: 10 ml Home Medications: Home Medications Medication Instructions Recorded Confirmed Type Aspirin [Aspirin EC] 81 mg PO HS #0 12/11/15 09/27/16 History Carvedilol 6.25 mg PO BIDWM #0 12/11/15 09/27/16 History Furosemide 40 mg PO DAILY #0 12/11/15 09/27/16 History Insulin Glargine,Hum.rec.anlog 45 unit SQ HS #0 12/11/15 09/27/16 History [[place] Solostar] Metformin HCl 1,000 mg PO BIDWM #0 12/11/15 09/27/16 History Nitroglycerin 0.4 mg SL Q5MIN PRN #0 12/11/15 09/27/16 History Ticagrelor [Brilinta] 90 mg PO BID #0 12/11/15 09/27/16 History diphenhydrAMINE HCl [Benadryl] 25 mg PO Q4H PRN #0 03/03/16 09/27/16 History Fluticasone Nasal [place] [Flonase] 1 spray EA NOSTRIL DAILY PRN #0 05/09/17 06/ 12/17 History Insulin Aspart [Novolog Flexpen] 10 - 20 unit SQ TIDWM #0 08/24/16 09/27/16 History Lisinopril 5 mg PO DAILY #0 08/24/16 09/27/16 History Is Patient on Beta Namrata?: Yes - Medical History Respiratory: Reports: Pulmonary Edema, Sleep Apnea, Other (history of DVT) Cardiovascular: Reports: Arrhythmia, Congestive Heart Failure, Coronary Artery Disease, Hypertension, High Cholesterol, Myocardial Infarction (s/p stents x 5) Gastrointestional: Reports: Morbid Obesity Neuro/Musculoskeletal: Reports: Muscle Weakness, Other (neuropathy lower extremeties) Renal/Endocrine: Reports: Diabetes Mellitus Type 2, Renal Failure (renal disease history per patient) - Surgical History HEENT Surgeries: Reports: Oral Surgery (WISDOM TEETH) Cardiac Surgeries/Treatments: Reports: Cardiac Catheterization (5 STENTS) Respiratory Surgery/Treatments: Reports: BiPAP Use (While in Hospital) Musculoskeletal Surgery/Tx: Reports: Other (L GREAT TOE AMPUTATION) - Social History Smoking Status: Never smoker Hx Chewing Tobacco Use: No Second Hand Exposure: No - Pertinent Findings Laboratory: CBC and BMP 09/28/16 03:06 09/28/16 03:06 BMP 09/28/16 03:06 Sodium 138 Potassium 4.3 Chloride 105 D Carbon Dioxide 24 BUN 22.0 H Creatinine 1.3 Glucose 171 H Calcium 7.7 L D Liver Function 09/28/16 Range/Units 03:06 Total Bilirubin 0.90 (0.20-1.30) MG/DL AST 28 (17-59) U/L ALT 49 (21-72) U/L Alkaline Phosphatase 48 (38-126) U/L Albumin 3.1 L (3.5-5.0) G/DL Urine 09/27/16 Range/Units 20:46 Urine Color Yellow (YELLOW) Urine Clarity Clear Urine pH 5.0 (5.0-8.0) Ur Specific [place] 1.015 (1.015-1.025) Urine Protein Negative (NEGATIVE) Urine Glucose (UA) Negative (NEGATIVE) - Physical Exam Respiratory Exam: Present: wheezing (mild), bilateral breath sounds equal Cardiovascular Exam: Present: regular rate and rhythm - Airway Assessment Mallampati Score: II TMD: 3 Fingerbreadths Neck Extension: fair (thick neck) Overall Assessment: no airway concerns - ASA ASA Score: 4, E - Plan Anesthesia: General TIVA, MAC - Discussion Discussion: Discussed risks/options/alternatives of anesthesia and questions answered. Patient consents. Nursing pain assessment noted. Attestation Statement: Prior to the delivery of any anesthetic medication, I examined the patient, developed the plan, obtained the patient's consent and discussed the risk and benefits of the procedure with the patient/guardian. - Additional Information Seen by Anesthesia: Yes
[2016-09-28] MEDS ORDERED: FentaNYL 100 MCG/2 ML INJECTION ONE (16:17)
[2016-09-28] MEDS ORDERED: MIDAZOLAM 2mg/2ml INJECTION ONE (16:17)
[2016-09-28] MEDS ORDERED: PROPOFOL 500 MG/50 ML VIAL IV ONE (16:19)
[2016-09-28] MEDS: BUPIVACAINE 0.25%/EPI 1:200,000 30ml SDV ID ONE ×2 (17:07→17:08)
--- NOTE | 2016-09-28 17:12 | Anesthesia Postoperative Note ---
- Date and Time Date: 09/28/16 Time: 17:12 - Status Patient Participated in Evaluation: Patient Participated in Person Vital Signs: Temp Pulse Resp BP Pulse Ox 99.4 F 91 15 119/73 94 09/28/16 16:45 09/28/16 16:45 09/28/16 16:45 09/28/16 15:00 09/28/16 16:45 Respiratory Function: Airway Patent Cardiovascular Function: Regular Pulse EKG Rhythm: Normal Sinus Rhythm Mental Status: Alert and Oriented Pain Intensity: 0 Hydration: IV Infusing Complications During Recover: None Apparent - Follow-Up Instructions Instructions: Per Surgeon
[2016-09-28] MEDS ORDERED: ENOXAPARIN 40 MG/0.4 ML INJECTION SQ SCH (20:00)
[2016-09-28] MEDS ORDERED: INSULIN GLARGINE 100unit/ml INJECTION SQ ONE (21:16)
[2016-09-28] MEDS: CARVEDILOL 6.25 MG TABLET PO SCH (21:22)
[2016-09-28] MEDS: ASPIRIN *EC* 81 MG TABLET PO SCH (21:23)
[2016-09-28] MEDS: INSULIN GLARGINE 100unit/ml INJECTION SQ SCH (21:25)
[2016-09-28] MEDS: DiphenhydrAMINE 25 MG CAPSULE PO PRN (22:10)
[2016-09-29] MEDS: INSULIN GLARGINE 100unit/ml INJECTION SQ SCH ×2 (00:49→21:10)
[2016-09-29] MEDS: PIPERACILLIN/TAZOBACTAM 3.375 GM in NS 100 ML IV SCH ×4 (03:16→22:26)
[2016-09-29] MEDS: HYDROMORPHONE 2 MG/ML INJECTION IVP PRN ×4 (06:05→21:17)
[2016-09-29] MEDS: ONDANSETRON 4 MG/2 ML INJECTION IVP PRN (06:06)
[2016-09-29] MEDS: INSULIN ASPART 100unit/ml INJECTION SQ SCH ×3 (08:46→18:36)
[2016-09-29] MEDS: CARVEDILOL 6.25 MG TABLET PO SCH ×2 (09:35→17:15)
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
--- NOTE | 2016-09-29 09:54 | Progress Note ---
Subjective: Patient states that he doesn't feel well today. He feels very fatigued and is nauseated. He continues to have pain in his foot but states that the Dilaudid works well but only lasts for about 2-2 and half hours at most. He continues to have a cough which is chronic but is improving from admission. He was placed on oxygen overnight. He denies any chest pains or palpitations. He denies any diarrhea. He has not had a bowel movement. Urine output is good. His last cardiac stent was in June 2015. He has been on Brillanta since that time. Objective Vital signs: Temp Pulse Resp BP Pulse Ox 98.6 F 99 27 H 110/61 99 09/29/16 05:33 09/29/16 07:00 09/29/16 07:00 09/29/16 07:00 09/29/16 07:00 Body Mass Index: 39.7 Comments: Telemetry shows sinus rhythm borderline sinus tachycardia GEN-alert, oriented, no acute distress HEENT-sclera anicteric, oropharynx is moist NECK-supple CV-regular rate and rhythm without murmur CHEST-decreased breath sounds in the bases ABD-soft, obese, nontender, nondistended -no Ramos EXT-left foot is wrapped, he continues to have edema 1+ in the pretibial area on the left. Right foot and leg free of edema NEURO-no focal deficits SKIN-left foot is wrapped, no erythema or rash elsewhere. Results - Labs CBC & Chem 7: 09/29/16 06:50 09/29/16 06:50 Labs: 85% neutrophils, 10% lymphs, no bands D-dimer yesterday 817 Accu-Cheks range from 137-171 Vanco trough this morning 14.06 Wound culture shows staph aureus heavy growth. Blood cultures 2 are negative after 1 day Assessment and Plan Assessment and Plan: 09/29/2016 Impression Severe sepsis with hypotension responding to IV fluid bolus and blood pressure has normalized Infected Diabetic left foot wound with osteomyelitis and with heavy growth of staph aureus-activities pending. Patient is on Zosyn and vancomycin Nonocclusive thrombus in the superficial femoral and popliteal veins with mild elevated [id number] for anticoagulation postoperatively when okay with Dr. Medeiros. Type 2 diabetes mellitus currently poorly controlled Coronary artery disease-last stent in June 2016. Okay to DC Mylanta per Dr. Barnett and start anticoagulation for chronic DVT Congestive heart failure Mild hypoxia-check chest x-ray to rule out fluid overload Chronic cough-we'll start a trial off of lisinopril and see if cough improves Peripheral neuropathy Hypertension -well controlled with just Coreg. Patient is off lisinopril due to cough Normocytic anemia-stable past 2 days Possible obstructive sleep apnea Plan Continue Zosyn and vancomycin for infected diabetic foot wound with osteomyelitis. Going back to surgery later today for fourth toe amputation and further debridement. Dr. Sin was consulted and recommends at least 6 weeks of IV antibiotics. We'll place PICC line today. Await final wound culture and sensitivity results. Start anticoagulation for DVT when okay with Dr. Medeiros Reading diabetes, adjust insulin as needed. He received a half dose of Lantus last night secondary to poor appetite and nothing by mouth status today. Blood sugars are fairly well controlled. Continue to monitor Accu-Cheks. Metformin and Lasix are on hold at this time. Check chest x-ray. May need diuresis. CBC and BMP tomorrow Possible transfer out of intensive care if doing well postoperatively. Sepsis Assessment - Evaluation Sepsis screening result: Sepsis Risk - Focused Exam Vital Signs Temp Pulse Resp BP Pulse Ox 09/29/16 07:00 99 27 H 110/61 99 09/29/16 06:30 93 24 116/57 92 09/29/16 06:12 98 22 88/62 90 09/29/16 06:03 100 91 09/29/16 05:33 98.6 F 138 H 22 117/70 98 09/29/16 05:30 97 22 123/66 97 09/29/16 05:00 91 20 107/62 97 09/29/16 04:04 98.6 F 92 26 H 95/72 96 09/29/16 04:00 91 96 09/29/16 00:00 101.4 F H 107 H 24 101/55 95 Capillary refill: < 2-3 Seconds Hospital Course Summary Disclaimer: The visit summary below is not to be considered part of the above Progress Note. 09/28/2016 Impression Severe sepsis with hypotension responding to IV fluid bolus Infected Diabetic left foot wound Left foot and leg edema likely secondary to cellulitis Nonocclusive thrombus in the superficial femoral and popliteal veins is probably chronic, check d-dimer Type 2 diabetes mellitus currently poorly controlled Coronary artery disease Congestive heart failure Peripheral neuropathy Hypertension anemia Possible obstructive sleep apnea Plan Continue Zosyn and vancomycin for infected diabetic foot wound. Dr. Medeiros was consulted and plans for I&D later today. He will obtain deep wound cultures. We'll consult infectious disease to see tomorrow. Check d-dimer. Continue usual home insulin and give sliding scale insulin as well. Monitor Accu -Cheks. Continue Lovenox for DVT prophylaxis Metformin, antihypertensives, and Lasix are on hold at this time. Continue to monitor closely for fluid overload after fluid resuscitation in a patient with history of CHF.
[2016-09-29] MEDS: METOCLOPRAMIDE 10mg/2ml INJECTION IVP PRN (10:27)
[2016-09-29] MEDS: INSULIN ASPART 100unit/ml INJECTION SQ PRN (11:16)
--- NOTE | 2016-09-29 11:24 | XRay Report ---
Indication: hypoxia PROCEDURE: XR chest 1V: Encounter: Initial Comparison: June 19, 2016 Findings: Airspace consolidation in the right lower lobe is new. There is some mild prominence of the central pulmonary vasculature is well. No pneumothorax. Possible trace right effusion. Heart size and mediastinal contours are stable. Impression: Right lower lobe airspace disease could be due to atelectasis, pneumonia or aspiration. Mild pulmonary vascular congestion. .
--- NOTE | 2016-09-29 11:41 | Pharmacy Consult-Antibiotics ---
Pharmacy Consult-Vancomycin - Laboratory Information VANCOMYCIN CONSULT: WBC 14.5 T/MM3 (4.5-11.0) H 09/29/16 06:50 BUN 17.0 MG/DL (9-20) 09/29/16 06:50 Creatinine 1.1 MG/DL (0.8-1.5) D 09/29/16 06:50 Procalcitonin 0.66 NG/ML 09/27/16 15:58 Vancomycin Trough 14.06 UG/ML (15-20) L 09/29/16 06:50 Renal fx continues stable: Vancomycin trough slightly below target of 15-20mcg/ml. Will adjust regimen to VANCOMYCIN 2 GM IV q12hrs, starting with next dose. Thank you
[2016-09-29] MEDS ORDERED: BUPIVACAINE 0.25%/EPI 1:200,000 30ml SDV ONE (12:02)
[2016-09-29] MEDS ORDERED: MIDAZOLAM 2mg/2ml INJECTION ONE ×2 (12:10→12:20)
[2016-09-29] MEDS ORDERED: FentaNYL 100 MCG/2 ML INJECTION ONE (12:10)
[2016-09-29] MEDS ORDERED: PROPOFOL 500 MG/50 ML VIAL IV ONE (12:15)
[2016-09-29] MEDS ORDERED: KETAMINE 500 MG/10 ML INJECTION ONE (12:20)
[2016-09-29] MEDS ORDERED: LIDOCAINE 1% (10mg/ml) 30ml SDV INJ ONE (12:22)
[2016-09-29] MEDS ORDERED: ROPIVACAINE 0.5% (5mg/ml) 30ml INJ ONE (12:22)
[2016-09-29] MEDS ORDERED: SALINE FLUSH 10ml SYRINGE ONE (12:29)
[2016-09-29] MEDS ORDERED: NS 1,000 ML IV SCH (12:35)
[2016-09-29] MEDS ORDERED: BUPIVACAINE 0.25%/EPI 1:200,000 30ml SDV ID ONE (13:07)
--- NOTE | 2016-09-29 13:09 | Anesthesia Preoperative Report ---
Anesthesia Preoperative Record - Date and Time Date: 09/29/16 Preoperative Diagnosis: left foot diabetic ulcer, osteomyelitis Proposed Procedure: Left foot 3rd ray amputation NPO Since Date: 09/28/16 NPO Since Time: 23:00 Allergies/Adverse Reactions: Allergies Allergy/AdvReac Type Severity Reaction Status Date / Time chlorpromazine Allergy Severe STOPPED Verified 09/27/16 16:21 BREATHING pregabalin [From Lyrica] Allergy Severe Suicidal Verified 09/27/16 16:22 Ideations Bswluva-Was-Kra Reductase Allergy Unknown SPASMS Verified 09/27/16 16:21 Inhibitor - Vital Signs Vital Signs: Temp Pulse Resp BP Pulse Ox 100.8 F H 98 31 H 111/59 95 09/29/16 11:00 09/29/16 11:00 09/29/16 11:00 09/29/16 11:00 09/29/16 11:00 Height and Weight: Height 5 ft 10 in Weight 131.1 kg Body Mass Index 39.7 - Medications Inpatient Medications: Current Medications Acetaminophen/Hydrocodone Bitart ([place] 5/325) 1 tab PO Q6H PRN PRN Reason: Pain Last Admin: 09/28/16 22:34 Dose: 1 tab Aspirin (Ecotrin) 81 mg PO HS RADHA Last Admin: 09/28/16 21:23 Dose: 81 mg Carvedilol (Coreg) 6.25 mg PO BIDWM RADHA Last Admin: 09/29/16 09:35 Dose: 6.25 mg Dextrose (D50%W) 25 ml IVP PRN PRN PRN Reason: Hypoglycemia Diphenhydramine HCl (Benadryl) 25 mg PO Q4H PRN PRN Reason: ALLERGY Last Admin: 09/28/16 22:10 Dose: 25 mg Fluticasone Propionate (Flonase) 1 spray EA NOSTRIL DAILY PRN Last Admin: 09/28/16 09:22 Dose: 1 spray Glucose (Glutose 15) 37.5 gm PO PRN PRN PRN Reason: Hypoglycemia Hydromorphone HCl (Dilaudid) 0.5 - 1 mg IVP Q2H PRN PRN Reason: Pain Last Admin: 09/29/16 09:37 Dose: 0.5 mg Piperacillin Sod/Tazobactam (Sod 3.375 gm/ Sodium Chloride) 100 mls @ 200 mls/ hr IV Q6H RADHA Last Admin: 09/29/16 11:21 Dose: 200 mls/hr Vancomycin HCl 2,000 mg/ (Sodium Chloride) 500 mls @ 250 mls/hr IV Q12H RADHA Sodium Chloride (Normal Saline) 1,000 mls @ 125 mls/hr IV .Q8H RADHA Last Admin: 09/29/16 12:36 Dose: 125 mls/hr Insulin Aspart (Novolog) 0 unit SQ SS PRN; Protocol PRN Reason: Hyperglycemia Last Admin: 09/29/16 11:16 Dose: 1 unit Insulin Aspart (Novolog) 10 unit SQ TIDWM RADHA Last Admin: 09/29/16 08:46 Dose: Not Given Insulin Glargine (Lantus) 45 unit SQ HS [facility] Last Admin: 09/29/16 00:49 Dose: Not Given Metoclopramide HCl (Reglan) 5 mg IVP Q6H PRN PRN Reason: Nausea Last Admin: 09/29/16 10:27 Dose: 5 mg Nitroglycerin (Nitrostat) 0.4 mg SL Q5MIN PRN PRN Reason: CP Ondansetron HCl (Zofran) 4 mg IVP Q6H PRN PRN Reason: Nausea Last Admin: 09/29/16 06:06 Dose: 4 mg Sodium Chloride (Iv Flush) 10 - 80 ml IVF PRN PRN PRN Reason: Flushing Last Admin: 09/27/16 15:55 Dose: 10 ml Sodium Chloride (Normal Saline) 500 ml IV PRN PRN Home Medications: Home Medications Medication Instructions Recorded Confirmed Type Aspirin [Aspirin EC] 81 mg PO HS #0 12/11/15 09/27/16 History Carvedilol 6.25 mg PO BIDWM #0 12/11/15 09/27/16 History Furosemide 40 mg PO DAILY #0 12/11/15 09/27/16 History Insulin Glargine,Hum.rec.anlog 45 unit SQ HS #0 12/11/15 09/27/16 History [Toujeo Solostar] Metformin HCl 1,000 mg PO BIDWM #0 12/11/15 09/27/16 History Nitroglycerin 0.4 mg SL Q5MIN PRN #0 12/11/15 09/27/16 History Ticagrelor [Brilinta] 90 mg PO BID #0 12/11/15 09/27/16 History diphenhydrAMINE HCl [Benadryl] 25 mg PO Q4H PRN #0 03/03/16 09/27/16 History Fluticasone Nasal [place] [Flonase] 1 spray EA NOSTRIL DAILY PRN #0 08/24/1604/03 History Insulin Aspart [Novolog Flexpen] 10 - 20 unit SQ TIDWM #0 08/24/16 09/27/16 History Lisinopril 5 mg PO DAILY #0 08/24/16 09/27/16 History Is Patient on Beta Namrata?: Yes Beta Namrata: Yes (coreg) - Medical History Respiratory: Reports: Sleep Apnea Cardiovascular: Reports: Angina (stents x5 1 yr ago. Asymptomatic since stents) , Congestive Heart Failure, Coronary Artery Disease, Hypertension, High Cholesterol, Myocardial Infarction (hx) Gastrointestional: Reports: Gastroesophageal Reflux Disease (well controlled) Neuro/Musculoskeletal: Reports: Back Problems Renal/Endocrine: Reports: Diabetes Mellitus Type 2 (neuropathy to feet but states he feels everything and has been having pain) Other History: DENIES: Anesthesia Reactions - Surgical History HEENT Surgeries: Reports: Oral Surgery (WISDOM TEETH) Cardiac Surgeries/Treatments: Reports: Cardiac Catheterization (5 STENTS) Respiratory Surgery/Treatments: Reports: BiPAP Use (While in Hospital) Musculoskeletal Surgery/Tx: Reports: Other (L GREAT TOE AMPUTATION) - Social History Smoking Status: Never smoker Hx Chewing Tobacco Use: No Substance Use Type: does not use Alcohol Intake Frequency: does not drink - Pertinent Findings Laboratory: CBC and BMP 09/29/16 06:50 09/29/16 06:50 BMP 09/29/16 06:50 Sodium 140 Potassium 4.7 Chloride 106 Carbon Dioxide 23 BUN 17.0 Creatinine 1.1 D Glucose 136 H Calcium 8.1 L Liver Function 09/29/16 Range/Units 06:50 Albumin 2.8 L (3.5-5.0) G/DL EKG Rhythm: Normal Sinus Rhythm - Physical Exam Respiratory Exam: Present: lungs clear, bilateral breath sounds equal Cardiovascular Exam: Present: regular rate and rhythm - Airway Assessment Mallampati Score: II TMD: 3 Fingerbreadths Neck Extension: fair (thick neck) Overall Assessment: may be difficult mask vent, may be difficult intubation - ASA ASA Score: 4, E - Plan Anesthesia: General TIVA Peripheral Nerve Block: Ankle-Left - Discussion Discussion: Discussed risks/options/alternatives of anesthesia and questions answered. Patient consents. Nursing pain assessment noted. Attestation Statement: Prior to the delivery of any anesthetic medication, I examined the patient, developed the plan, obtained the patient's consent and discussed the risk and benefits of the procedure with the patient/guardian. - Additional Information Seen by Anesthesia: Yes
--- NOTE | 2016-09-29 13:12 | General Surgery Procedure Note ---
Date of Procedure: 09/29/16 Surgeon: Mala Postoperative Diagnosis: left diabetic foot ulcer with extensive wound and sepsis Procedure: left foot 3rd toe Ray amputation with application of wound vac Estimated Blood Loss: See Anesthesia Record. Pathology: other (3rd toe of left foot)
--- NOTE | 2016-09-29 13:17 | Anesthesia Procedure Note ---
Peripheral Nerve Blockade - Procedure Physician: Laurence Hernandez MD Date: 09/29/16 Surgical Procedure: Left foot 3rd toe ray amputation Discussion: Discussed risks/options/alternatives of anesthesia and questions answered. Patient consents. Nursing pain assessment noted. Block Start: 12:37 Block Stop: 12:42 Blocked Employed: Ankle/Foot Indication: Operative Anesthesia Approach: Left Side Confirmed Position: Supine Patient: Consent, Risks/Benefits Discussed, Informed, Post Block Act. Discussed IV Sedation: Yes Sedation: Sedate w/Meaningful Contact (versed, ketamine) Initial Vital Signs: Temperature 101.7 F H 09/27/16 16:00 Temperature Source Oral 09/27/16 16:00 Sepsis Recent Fever Within 48 Hours No 09/27/16 16:00 Sepsis Suspicion of Infection No 09/27/16 16:00 Sepsis New/Unexplained Change in Mental Status No 09/27/16 16:00 Sepsis Score/Level No Definite Risk 09/27/16 16:00 Sepsis Action Taken by Nursing No Action 09/27/16 16:00 Pulse Rate 122 H 09/27/16 16:00 Pulse Rhythm 09/27/16 16:00 Respiratory Rate 20 09/27/16 16:00 Respiratory Depth Normal 09/27/16 16:00 Blood Pressure 140/62 H 09/27/16 16:00 Blood Pressure Mean 88 09/27/16 16:00 Pulse Oximetry 95 09/27/16 16:00 Oxygen Delivery Method 09/27/16 16:00 Post Vital Signs: Temp Pulse Resp BP Pulse Ox 100.8 F H 98 31 H 111/59 95 09/29/16 11:00 09/29/16 11:00 09/29/16 11:00 09/29/16 11:00 09/29/16 11:00 Initial Pain Pain Score: 0 Post Block Pain Score: 0 Prep: Chlorhexadine/ETOH Ultrasound Used?: No - Injectate Ropivacaine (%): 0.5 Ropivacaine (mL): 15 Lidocaine (%): 1 Lidocaine (mL): 15 Was Epi 1:200,000 Used?: No Injection: Injection made incrementally with constant monitoring and aspiration every 2- 5ml
--- NOTE | 2016-09-29 13:43 | Anesthesia Postoperative Note ---
- Date and Time Date: 09/29/16 Time: 13:43 - Status Patient Participated in Evaluation: Patient Participated in Person Vital Signs: Temp Pulse Resp BP Pulse Ox 100.8 F H 98 31 H 111/59 95 09/29/16 11:00 09/29/16 11:00 09/29/16 11:00 09/29/16 11:00 09/29/16 11:00 Respiratory Function: Airway Patent Cardiovascular Function: Regular Pulse EKG Rhythm: Normal Sinus Rhythm Mental Status: Alert and Oriented Pain Intensity: 0 Hydration: IV Infusing Complications During Recover: None Apparent - Follow-Up Instructions Instructions: Per Surgeon
--- NOTE | 2016-09-29 15:20 | Operative Note ---
DATE OF SERVICE 09/28/2016 SURGEON Vic Medeiros MD PREOPERATIVE DX Left diabetic foot ulcer. POSTOPERATIVE DIAGNOSIS Soft tissue necrosis involving left mid foot. PROCEDURE Excisional surgical debridement of necrotic skin, subcutaneous tissues and fascia from left foot/diabetic foot ulcer. ANESTHESIA TIVA/local BRIEF HISTORY/INDICATIONS Mr. Alas is a 56-year-old gentleman who presented with sepsis and a left diabetic foot ulcer. There was marked erythema and purulent material draining forth from an open diabetic foot ulcer involving the plantar aspect of the left foot near the anatomic location of the third to fourth metatarsal head. A sterile Q-tip was able to be advanced into this small diabetic foot ulcer and advanced a fair distance into the mid foot as well as distally towards the base of the third and fourth toes. As a result of the above indications, I recommended to the patient that he undergo exploration of this wound and excisional surgical debridement as indicated. For completeness please refer to notes included in the patient's chart. DESCRIPTION OF PROCEDURE After informed consent was obtained, the patient was brought to the operative suite and the left lower extremity was then prepped and draped in sterile fashion. Formal time-out was then completed. 0.25% Marcaine with epinephrine was then injected surrounding the diabetic foot ulcer. This opening was on the order about 8 mm in diameter and was located near the anatomic location of the third and fourth metatarsal heads. Unfortunately the hemostat was able to be advanced into the wound and advanced distally towards the base of the third toe. The overlying skin was then opened towards the base of the left third toe. Additionally unfortunately there was a fair amount of necrotic subcutaneous tissues and fascia beneath the incision. Moderate amount of time was spent performing excisional surgical debridement of all necrotic skin, subcutaneous tissues and fascia. Hemostat was then placed within the wound and further purulent material could be seen coming forth from the midportion of the midfoot. The wound continued to tunnel anteriorly to the dorsum of the foot. Skin was then incised between the webspace of the second and third toe. The skin incision was then continued to be carried out to the dorsum of the foot overlying this additional abscess cavity. Anaerobic and aerobic cultures were obtained from within the deep wound. Additional excisional surgical debridement was carried out upon the dorsum of the foot. At this point in time now the third metatarsal head began to be visualized and appeared also to contain a component of infection/osteomyelitis. The fascia adjacent to the metatarsal head was also grossly infected and appeared to contain a component of some necrosis. I had not discussed with the patient about performing ray amputation prior to surgery. The majority of all the nonviable tissue was able to be excised sharply. Hemostasis was obtained with use of electrocautery. This did result in a fairly significant wound involving the left foot that was on the order about 4-5 cm in total length and did extend from the plantar aspect of the foot up to and onto the dorsum of the foot. Wound was then packed with Kerlix moistened in normal saline. Additional 4x4s were then placed overlying this dressing followed by an additional Kerlix dressing. The patient was sent back to the ICU in stable condition. Ultimately I believe the patient is going to require a third toe ray amputation with application of a wound VAC. This will be addressed with the patient and likely will proceed with amputation tomorrow. ISELA
[2016-09-29] MEDS ORDERED: FUROSEMIDE 20 MG/2 ML INJECTION IVP ONE (16:57)
[2016-09-29] MEDS: MENTHOL COUGH DROPS (RICOLA) MM PRN (17:13)
[2016-09-29] MEDS: FLUTICASONE NASAL SPRAY 50mcg EA NOSTRIL PRN (17:14)
[2016-09-29] MEDS: ASPIRIN *EC* 81 MG TABLET PO SCH (21:09)
[2016-09-29] MEDS: HYDROCODONE/APAP 5mg/325mg TABLET PO PRN (21:10)
[2016-09-30] MEDS: HYDROCODONE/APAP 5mg/325mg TABLET PO PRN ×2 (02:55→12:31)
[2016-09-30] MEDS: PIPERACILLIN/TAZOBACTAM 3.375 GM in NS 100 ML IV SCH ×4 (03:01→22:22)
[2016-09-30] MEDS: MENTHOL COUGH DROPS (RICOLA) MM PRN (07:32)
[2016-09-30] MEDS: CARVEDILOL 6.25 MG TABLET PO SCH ×2 (07:41→17:00)
[2016-09-30] MEDS: HYDROMORPHONE 2 MG/ML INJECTION IVP PRN ×3 (07:41→21:18)
[2016-09-30] MEDS: INSULIN ASPART 100unit/ml INJECTION SQ SCH ×3 (08:22→18:35)
[2016-09-30] MEDS: FLUTICASONE NASAL SPRAY 50mcg EA NOSTRIL PRN (09:09)
--- NOTE | 2016-09-30 14:38 | Operative Note ---
DATE OF PROCEDURE 09/29/2016 SURGEON Vic Medeiros MD PREOPERATIVE DIAGNOSIS History for left diabetic foot ulcer with associated soft tissue necrosis/ infection involving left midfoot/base of 3rd toe. POSTOPERATIVE DIAGNOSIS History for left diabetic foot ulcer with associated soft tissue necrosis/ infection involving left midfoot/base of 3rd toe. PROCEDURE Ray amputation of left third toe. Application of VERAFLO wound VAC. ANESTHESIA Regional block, local, TIVA. BRIEF HISTORY/INDICATIONS Mr. Alas is a 56-year-old gentleman who has had a history of a left diabetic foot ulcer. The patient recently presented to our wound facility with increasing redness, erythema and fever as a result of a significant infection involving his left foot. The patient was found have sepsis and was admitted to our ICU and begun on broad-spectrum antibiotics and was resuscitated with fluids. Yesterday he did undergo excisional surgical debridement/exploration of his wound. Unfortunately, he was found to have soft tissue necrosis with binh purulence being noted within his left midfoot region proximal to the left third toe. It did appear that the phalanx and perhaps the third metatarsal head contained a component of osteomyelitis/infection. As a result of the necrotic tissue that was present involving the left third toe and overlying the metatarsal, it was recommended that he undergo a ray amputation of this digit. For completeness please refer to notes in the patient's chart. DESCRIPTION OF PROCEDURE After informed consent was obtained, the patient was brought to the operative suite and the left foot was then prepped and draped in sterile fashion. Formal time-out was then completed. An incision had already been made within the webspace of the second and third toes up to and onto the midportion of the metatarsal. 0.25% Marcaine was injected at the proposed surgical site for additional analgesia. An incision was then made from overlying the anatomic location of the midportion of the third metatarsal up to and through the webspace between the third and fourth toes. This incision was then carried down distally to the incision that had already been present upon the plantar aspect of the foot. Next, utilizing an osteo-elevator the midportion of the third metatarsal was dissected out anteriorly and laterally. Utilizing a TPS oscillating saw, the third metatarsal was then transected at this location. Remaining tendinous structures adjacent to the metatarsal were then transected sharply with knife. The distal aspect of the third metatarsal and the left third toe was then passed off the table as a surgical specimen. There was still some remaining necrotic tissue along the medial aspect of the initial incision. Utilizing a rongeur and a sharp surgical curette, additional debridement was carried out of the subcutaneous tissues and adjacent fascia. Meticulous hemostasis was then obtained within the wound. All grossly infected/ necrotic tissue at this time had been completely excised. A rongeur was utilized to round the edges of the transected third metatarsal. Next, a bone rasp was then utilized to "smooth out" the edges of the third metatarsal. Wound was then irrigated. A VERAFLO wound VAC was then applied. Foam dressing was placed within the wound followed by a Steri-Drape which was then secured to tubing and the VERAFLO VAC. The patient tolerated the procedure without difficulty and was sent back to the recovery room once deemed in stable condition. ISELA
[2016-09-30] MEDS: FUROSEMIDE 40 MG TABLET PO SCH (16:15)
--- NOTE | 2016-09-30 16:24 | Progress Note ---
Subjective: F/U: Severe sepsis, infected diabetic foot wound with osteo Improving-not as completely washed out and tired as at admission but still fatigues readily. Minimal discomfort to foot wound. No f/c. Feels breathing okay , but needing O2 at times. Occasional cough, nonproductive. No chest pressure or pain. Appetite improving. Objective Vital signs: Temp Pulse Resp BP Pulse Ox 97.6 F 80 31 H 109/69 95 09/30/16 08:00 09/30/16 12:00 09/30/16 12:00 09/30/16 12:00 09/30/16 12:00 Height: 1.78 m Weight: 131.089 kg Body Mass Index: 41.4 - Constitutional Present: no acute distress, well nourished, well developed, morbidly obese - Routine HEENT Exam Head: Present: normocephalic, atraumatic Eye: Present: EOMI, PERRL. Absent: conjunctival icterus ENT: Present: mucous membranes moist - Routine Respiratory Exam Present: CTA bilaterally. Absent: rales, respiratory distress, wheezes - Routine Cardiovascular Exam Present: RRR - Routine Abdominal Exam Present: soft, normoactive bowel sounds, non distended, non tender - Routine Extremities Exam Present: edema (+1 bilateral ). Absent: joint swelling - Routine Musculoskeletal Exam Musculoskeletal: no clubbing or cyanosis, normal strength - Routine Skin Exam Present: warm. Absent: mottling Comments: Wound vac in place on right foot. Examined with Dr Medeiros-erythema decreasing. - Routine Neurological Exam Present: alert, oriented X3, CN II-XII intact. Absent: motor deficit - Routine Psychiatric Exam Present: normal affect, normal thought process, good insight, good judgment Results - Labs CBC & Chem 7: 09/30/16 05:50 09/30/16 05:50 Assessment and Plan (1) Severe sepsis Current visit: Yes Status: Resolved (2) Diabetic foot ulcer with osteomyelitis Current visit: Yes Status: Acute (3) Type II diabetes mellitus Current visit: Yes Status: Chronic (4) CAD (coronary artery disease) Current visit: Yes Status: Chronic (5) CHF (congestive heart failure) Current visit: Yes Status: Chronic (6) Hypoxia Current visit: Yes Status: Acute (7) Cough Current visit: Yes Status: Chronic Chronic - ? ROLANDO induced. (8) Peripheral neuropathy Current visit: Yes Status: Chronic (9) HTN (hypertension) Current visit: Yes Status: Chronic (10) Normochromic anemia Current visit: Yes Status: Chronic (11) ARSH (obstructive sleep apnea) Current visit: Yes Status: Suspected (12) Deep vein thrombosis (DVT) of popliteal vein of left lower extremity Current visit: Yes Status: Chronic (13) Morbid (severe) obesity due to excess calories Current visit: Yes Status: Chronic DVT Prophylaxis: Lovenox Resuscitation Status: Full Code Assessment and Plan: Continue Zosyn and vancomycin for antimicrobial coverage - Dr Sin recommending 6 weeks of IV therapy. Continue wound vac. Will start Brillenta due to stent and Lovenox for DVT prevention. Lengthy discussion with pt regarding anticoagulation. He is against use of Xarelto/Coumadin-feels the DVT likely chronic. Is receiving Brillanta with drug study-concerns if stopped, would not be able to afford Xarelto and worries would not be able to get back on to Brellenta. Restart Lasix orally to help motivate fluid - BP improved from admit and severe sepsis resolved. Continue diabetic medications - sugars stable. Continue to hold metformin. Recheck CBC in am due to resolving sepsis. Repeat BMP in am due to diabetes, medication use and resolving sepsis. Will transfer to surgical floor as CCU needs resolved - condition has stabilized. Case discussed with CM, nursing, and Dr Medeiros. Time spent with pt care 35 minutes. Sepsis Assessment - Evaluation Sepsis screening result: No Definite Risk - Focused Exam Vital Signs Temp Pulse Resp BP Pulse Ox 09/30/16 12:00 80 31 H 109/69 95 09/30/16 08:00 97.6 F 74 12 112/68 94 09/30/16 06:00 79 21 105/63 97 09/30/16 05:00 75 17 101/64 94 Respiratory exam: Present: CTA bilaterally (anteriorly). Absent: wheezes Cardiovascular exam: Present: RRR. Absent: murmur Capillary refill: < 2-3 Seconds Hospital Course Summary Disclaimer: The visit summary below is not to be considered part of the above Progress Note. Hospital Course: 09/27 Admit to CCU for close observation with severe sepsis. Finish fluid resuscitation. Continue Zosyn and vancomycin for infected diabetic foot wound. Consult Dr. Medeiros tomorrow. May need ID consult as well. Venous Doppler to rule out DVT. Continue usual home insulin and give sliding scale insulin as well. Monitor Accu -Cheks. Lovenox for DVT prophylaxis Due to sepsis and hypotension we'll hold metformin and antihypertensives at this time. We'll also hold Lasix. Cardiac medications will likely need to be restarted in the next 1-2 days. Monitor closely for fluid overload after fluid resuscitation in a patient with history of CHF. Greater than 75 minutes of critical care time spent seeing and evaluating the patient and determining 09/28 Continue Zosyn and vancomycin for infected diabetic foot wound. Dr. Medeiros was consulted and plans for I&D later today. He will obtain deep wound cultures. We'll consult infectious disease to see tomorrow. Check d-dimer. Continue usual home insulin and give sliding scale insulin as well. Monitor Accu -Cheks. Continue Lovenox for DVT prophylaxis Metformin, antihypertensives, and Lasix are on hold at this time. Continue to monitor closely for fluid overload after fluid resuscitation in a patient with history of CHF. PROCEDURE Excisional surgical debridement of necrotic skin, subcutaneous tissues and fascia from left foot/diabetic foot ulcer. 09/29 Continue Zosyn and vancomycin for infected diabetic foot wound with osteomyelitis. Going back to surgery later today for fourth toe amputation and further debridement. Dr. Sin was consulted and recommends at least 6 weeks of IV antibiotics. We'll place PICC line today. Await final wound culture and sensitivity results. Start anticoagulation for DVT when okay with Dr. Medeiros Reading diabetes, adjust insulin as needed. He received a half dose of Lantus last night secondary to poor appetite and nothing by mouth status today. Blood sugars are fairly well controlled. Continue to monitor Accu-Cheks. Metformin and Lasix are on hold at this time. Check chest x-ray. May need diuresis. CBC and BMP tomorrow Possible transfer out of intensive care if doing well postoperatively. Postoperative Diagnosis: left diabetic foot ulcer with extensive wound and sepsis Procedure: left foot 3rd toe Ray amputation with application of wound vac 09/30 Continue Zosyn and vancomycin for antimicrobial coverage - Dr Sin recommending 6 weeks of IV therapy. Continue wound vac. Will restart Brillenta due to stent and Lovenox for DVT prevention. Lengthy discussion with pt regarding anticoagulation. He is against use of Xarelto/Coumadin-feels the DVT likely chronic. Is receiving Brillanta with drug study-concerns if stopped, would not be able to afford Xarelto and worries would not be able to get back on to Brellenta. Restart Lasix orally to help motivate fluid - BP improved from admit and severe sepsis resolved. Continue diabetic medications - sugars stable. Continue to hold metformin. Recheck CBC in am due to resolving sepsis. Repeat BMP in am due to diabetes, medication use and resolving sepsis. Will transfer to surgical floor as CCU needs resolved - condition has stabilized.
--- NOTE | 2016-09-30 18:29 | Progress Note ---
DATE OF SERVICE 09/30/2016 FINDINGS Mr. Alas was in good spirits this afternoon. He denied much in the way of pain. PHYSICAL EXAMINATION VITAL SIGNS: Afebrile, normotensive. Please refer to EMR. EXTREMITIES: Attention was focused to the left lower extremity. It does appear that there is less erythema and edema involving the dorsum of his foot. Wound V.A.C. is in place and functioning. ASSESSMENT A 56-year-old gentleman with left diabetic foot ulcer with associated sepsis and necrosis of midfoot. Status post left third toe ray amputation. Patient overall doing well. PLAN Continue with current care from a wound standpoint. Will continue with utilization of a wound V.A.C. We will reassess wound likely beginning of next week during wound V.A.C. change. Continue with broad-spectrum antibiotics as per ID. MTDD
[2016-09-30] MEDS: SALINE FLUSH 10ml SYRINGE IVF PRN (19:40)
[2016-09-30] MEDS: ONDANSETRON 4 MG/2 ML INJECTION IVP PRN (19:40)
[2016-09-30] MEDS: NS FLUSH BAG 500ml IV PRN (19:41)
[2016-09-30] MEDS: ASPIRIN *EC* 81 MG TABLET PO SCH (21:20)
[2016-09-30] MEDS: TICAGRELOR 90 MG TABLET PO SCH (21:20)
[2016-09-30] MEDS: INSULIN GLARGINE 100unit/ml INJECTION SQ SCH (21:20)
[2016-10-01] MEDS: HYDROMORPHONE 2 MG/ML INJECTION IVP PRN ×3 (00:56→15:23)
[2016-10-01] MEDS: PIPERACILLIN/TAZOBACTAM 3.375 GM in NS 100 ML IV SCH ×2 (03:53→08:18)
[2016-10-01] MEDS: ONDANSETRON 4 MG/2 ML INJECTION IVP PRN ×2 (04:52→13:40)
[2016-10-01] MEDS: METOCLOPRAMIDE 10mg/2ml INJECTION IVP PRN ×2 (07:40→18:36)
[2016-10-01] MEDS: TICAGRELOR 90 MG TABLET PO SCH ×2 (08:17→21:40)
[2016-10-01] MEDS: CARVEDILOL 6.25 MG TABLET PO SCH ×2 (08:17→18:16)
[2016-10-01] MEDS: ENOXAPARIN 40 MG/0.4 ML INJECTION SQ SCH (08:18)
[2016-10-01] MEDS: FUROSEMIDE 40 MG TABLET PO SCH (08:24)
[2016-10-01] MEDS: NS FLUSH BAG 500ml IV PRN (08:25)
[2016-10-01] MEDS: INSULIN ASPART 100unit/ml INJECTION SQ SCH ×3 (09:20→19:14)
[2016-10-01] MEDS: HYDROCODONE/APAP 5mg/325mg TABLET PO PRN ×2 (10:10→19:59)
--- NOTE | 2016-10-01 12:07 | Wound Care Progress Note ---
Wound Management - Wound Right Foot Wound Type: Amputation (3rd toe left foot ray amputation) Wound Present on Admission?: Yes Wound Bed Appearance: Beefy Red, Bone Tendon [place] Wound Appearance: Well Defined Tunneling: No Undermining: No Drainage Description: Serosanguineous Drainage Amount: Moderate Drainage Odor: No Odor Dressing Status: Changed Irrigant Solution: Saline Irrigant Packing Type: Woundvac Sponge Number of Packing Pieces Removed?: 3 Number of Packing Pieces Placed?: 3 Primary Dressing: Trac Pad Secondary Dressing: Transparent Drape Dressing Change Date: 10/01/16 Dressing Change Time: 12:00 Dressing Change Patient Tolerance: Tolerated Well Microbiology: Microbiology 09/28/16 16:21 Foot, Left Gram Stain - Final 09/28/16 16:21 Foot, Left Surgical Culture - Final Staphylococcus aureus
--- NOTE | 2016-10-01 12:30 | Wound Care Progress Note ---
Wound Management - Wound Left Foot Microbiology: Microbiology 09/28/16 16:21 Foot, Left Gram Stain - Final 09/28/16 16:21 Foot, Left Surgical Culture - Final Staphylococcus aureus
[2016-10-01] MEDS: INSULIN ASPART 100unit/ml INJECTION SQ PRN (13:40)
[2016-10-01] MEDS: CEFAZOLIN 2 G in NS 100 ML IV SCH ×2 (13:41→21:51)
--- NOTE | 2016-10-01 13:43 | Progress Note ---
Subjective: F/U: Severe sepsis, infected diabetic foot wound with osteo Doing fair. Still notes significant nausea and vomiting post eating. Has some desire to eat, but will throw up about 1 hour post. Keeping liquids and meds down. Passing flatus but not reporting stool (states there nothing there to come out due to his decreased intake). Breathing well. Notes cough at times-no sputum. No pain with breathing or chest pain, but report ab muscles sore from the coughing and emesis. No f/c. Saw his wound when wound vac changed-very shocked at how extensive the wound looks. Did have good conversation with the wound nurse about how the wound vac promotes and speeds healing. Feels more encourages. Has stress about his financial situation due to his hospitalizations and overall health status. Objective Vital signs: Temp Pulse Resp BP Pulse Ox 96.3 F L 75 16 119/75 98 10/01/16 12:12 10/01/16 12:12 10/01/16 12:12 10/01/16 12:12 10/01/16 12:12 Weight: 133.9 kg - Constitutional Present: no acute distress, well nourished, well developed, morbidly obese - Routine HEENT Exam Head: Present: normocephalic, atraumatic Eye: Present: EOMI, PERRL. Absent: conjunctival icterus ENT: Present: mucous membranes moist (No thrush ), nares patent - Routine Respiratory Exam Present: CTA bilaterally. Absent: rales, respiratory distress, wheezes - Routine Cardiovascular Exam Present: RRR - Routine Abdominal Exam Present: soft, non distended, non tender. Absent: normoactive bowel sounds ( Decreased ), firm, rigid - Routine Extremities Exam Present: edema (+2 Left lower ext). Absent: cyanosis - Routine Musculoskeletal Exam Musculoskeletal: no clubbing or cyanosis, normal strength - Routine Skin Exam Present: warm, wounds (Wound vac in place on left lower ext). Absent: mottling - Routine Neurological Exam Present: alert, oriented X3, CN II-XII intact. Absent: motor deficit - Routine Psychiatric Exam Present: normal affect, normal thought process, cooperative, good insight, good judgment. Absent: anxious, agitated Results - Labs CBC & Chem 7: 10/01/16 04:19 10/01/16 04:19 Assessment and Plan (1) Severe sepsis Current visit: Yes Status: Resolved (2) Diabetic foot ulcer with osteomyelitis Current visit: Yes Status: Acute 10/01/16 Wound growing DILIA. (3) Type II diabetes mellitus Current visit: Yes Status: Chronic (4) CAD (coronary artery disease) Current visit: Yes Status: Chronic (5) CHF (congestive heart failure) Current visit: Yes Status: Chronic (6) Hypoxia Current visit: Yes Status: Acute (7) Cough Current visit: Yes Status: Chronic Chronic - ? ROLANDO induced. (8) Peripheral neuropathy Current visit: Yes Status: Chronic (9) HTN (hypertension) Current visit: Yes Status: Chronic (10) Normochromic anemia Current visit: Yes Status: Chronic (11) ARSH (obstructive sleep apnea) Current visit: Yes Status: Suspected (12) Deep vein thrombosis (DVT) of popliteal vein of left lower extremity Current visit: Yes Status: Chronic (13) Nausea & vomiting Current visit: Yes Status: Acute (14) Morbid (severe) obesity due to excess calories Current visit: Yes Status: Chronic DVT Prophylaxis: Lovenox Resuscitation Status: Full Code Assessment and Plan: With culture showing DILIA, will change antibiotics to cefazolin 2 grams IV q8 hours as per Dr Sin's recommendation. Continue wound vac. Lasix and Coreg restarted. Will start lisinopril tomorrow - watch for increased cough with this medication. Continue diabetic medications - sugars stable. Continue to hold metformin. Start Colace 100mg BID to help bowel function. Have MOM, Miralax, and Dulcolax prn. Recheck CBC in am due to resolving sepsis. Repeat BMP in am due to diabetes, medication use and resolving sepsis. Case discussed with CM. Time spent with pt care 25 minutes. Sepsis Assessment - Evaluation Sepsis screening result: No Definite Risk - Focused Exam Vital Signs Temp Pulse Resp BP Pulse Ox 10/01/16 12:12 96.3 F L 75 16 119/75 98 10/01/16 07:27 96.3 F L 77 16 156/93 H 92 10/01/16 04:00 97.4 F 72 16 112/74 95 Respiratory exam: Present: CTA bilaterally (anteriorly). Absent: wheezes Cardiovascular exam: Present: RRR. Absent: murmur Capillary refill: < 2-3 Seconds Hospital Course Summary Disclaimer: The visit summary below is not to be considered part of the above Progress Note. Hospital Course: 09/27 Admit to CCU for close observation with severe sepsis. Finish fluid resuscitation. Continue Zosyn and vancomycin for infected diabetic foot wound. Consult Dr. Medeiros tomorrow. May need ID consult as well. Venous Doppler to rule out DVT. Continue usual home insulin and give sliding scale insulin as well. Monitor Accu -Cheks. Lovenox for DVT prophylaxis Due to sepsis and hypotension we'll hold metformin and antihypertensives at this time. We'll also hold Lasix. Cardiac medications will likely need to be restarted in the next 1-2 days. Monitor closely for fluid overload after fluid resuscitation in a patient with history of CHF. Greater than 75 minutes of critical care time spent seeing and evaluating the patient and determining 09/28 Continue Zosyn and vancomycin for infected diabetic foot wound. Dr. Medeiros was consulted and plans for I&D later today. He will obtain deep wound cultures. We'll consult infectious disease to see tomorrow. Check d-dimer. Continue usual home insulin and give sliding scale insulin as well. Monitor Accu -Cheks. Continue Lovenox for DVT prophylaxis Metformin, antihypertensives, and Lasix are on hold at this time. Continue to monitor closely for fluid overload after fluid resuscitation in a patient with history of CHF. PROCEDURE Excisional surgical debridement of necrotic skin, subcutaneous tissues and fascia from left foot/diabetic foot ulcer. 09/29 Continue Zosyn and vancomycin for infected diabetic foot wound with osteomyelitis. Going back to surgery later today for fourth toe amputation and further debridement. Dr. Sin was consulted and recommends at least 6 weeks of IV antibiotics. We'll place PICC line today. Await final wound culture and sensitivity results. Start anticoagulation for DVT when okay with Dr. Medeiros Reading diabetes, adjust insulin as needed. He received a half dose of Lantus last night secondary to poor appetite and nothing by mouth status today. Blood sugars are fairly well controlled. Continue to monitor Accu-Cheks. Metformin and Lasix are on hold at this time. Check chest x-ray. May need diuresis. CBC and BMP tomorrow Possible transfer out of intensive care if doing well postoperatively. Postoperative Diagnosis: left diabetic foot ulcer with extensive wound and sepsis Procedure: left foot 3rd toe Ray amputation with application of wound vac 09/30 Continue Zosyn and vancomycin for antimicrobial coverage - Dr Sin recommending 6 weeks of IV therapy. Continue wound vac. Will restart Brillenta due to stent and Lovenox for DVT prevention. Lengthy discussion with pt regarding anticoagulation. He is against use of Xarelto/Coumadin-feels the DVT likely chronic. Is receiving Brillanta with drug study-concerns if stopped, would not be able to afford Xarelto and worries would not be able to get back on to Brellenta. Restart Lasix orally to help motivate fluid - BP improved from admit and severe sepsis resolved. Continue diabetic medications - sugars stable. Continue to hold metformin. Recheck CBC in am due to resolving sepsis. Repeat BMP in am due to diabetes, medication use and resolving sepsis. Will transfer to surgical floor as CCU needs resolved - condition has stabilized. 10/01 With culture showing DILIA, will change antibiotics to cefazolin 2 grams IV q8 hours as per Dr Sin's recommendation. Continue wound vac. Lasix and Coreg restarted. Will start lisinopril tomorrow - watch for increased cough with this medication. Continue diabetic medications - sugars stable. Continue to hold metformin. Start Colace 100mg BID to help bowel function. Have MOM, Miralax, and Dulcolax prn. Recheck CBC in am due to resolving sepsis. Repeat BMP in am due to diabetes, medication use and resolving sepsis.
[2016-10-01] MEDS ORDERED: BISACODYL 10 MG SUPPOSITORY RECTALLY PRN (15:47)
[2016-10-01] MEDS ORDERED: POLYETHYL GLYCOL 3350 17gm PACKET PO PRN (15:48)
[2016-10-01] MEDS: DOCUSATE SODIUM 100 MG CAPSULE PO SCH ×2 (18:16→21:40)
[2016-10-01] MEDS: ASPIRIN *EC* 81 MG TABLET PO SCH (21:40)
[2016-10-01] MEDS: INSULIN GLARGINE 100unit/ml INJECTION SQ SCH (21:40)
[2016-10-02] MEDS: HYDROCODONE/APAP 5mg/325mg TABLET PO PRN ×3 (03:39→21:12)
[2016-10-02] MEDS: CEFAZOLIN 2 G in NS 100 ML IV SCH ×3 (04:49→21:12)
[2016-10-02] MEDS: NS FLUSH BAG 500ml IV PRN (04:53)
[2016-10-02] MEDS: HYDROMORPHONE 2 MG/ML INJECTION IVP PRN ×3 (06:37→22:20)
[2016-10-02] MEDS: SALINE FLUSH 10ml SYRINGE IVF PRN ×2 (06:39→16:50)
[2016-10-02] MEDS: ONDANSETRON 4 MG/2 ML INJECTION IVP PRN ×2 (09:51→18:13)
[2016-10-02] MEDS: INSULIN ASPART 100unit/ml INJECTION SQ SCH ×4 (09:52→18:21)
[2016-10-02] MEDS: ENOXAPARIN 40 MG/0.4 ML INJECTION SQ SCH (09:53)
[2016-10-02] MEDS: CARVEDILOL 6.25 MG TABLET PO SCH ×2 (09:54→17:46)
[2016-10-02] MEDS: TICAGRELOR 90 MG TABLET PO SCH ×2 (09:54→21:03)
[2016-10-02] MEDS: LISINOPRIL 5 MG TABLET PO SCH (09:54)
[2016-10-02] MEDS: FUROSEMIDE 40 MG TABLET PO SCH (09:54)
[2016-10-02] MEDS: DOCUSATE SODIUM 100 MG CAPSULE PO SCH ×2 (10:07→21:04)
--- NOTE | 2016-10-02 11:35 | Progress Note ---
DATE OF SERVICE 10/01/2016 FINDINGS Mr. Alas was in good spirits today. He denied much in the way of pain involving his left foot. PHYSICAL EXAMINATION VITAL SIGNS: Afebrile. Normotensive. Please refer to EMR. EXTREMITIES: Attention was focused to his left foot. Wound V.A.C. was changed earlier today. The dorsum of the left foot and the plantar aspect of the left foot does contain less erythema and edema. ASSESSMENT A 56-year-old gentleman with left diabetic foot ulceration, status post left third toe ray amputation, overall patient doing well. PLAN Will continue with ongoing IV antibiotics. Will continue with negative wound pressure therapy. If general surgical care is needed over the course of the weekend, please contact Dr. Sanders. Otherwise, I will plan on seeing the patient on Tuesday in followup. Overall, I am pleased with the patient's progress at this time. ISELA
--- NOTE | 2016-10-02 17:50 | Progress Note ---
Subjective: F/U: Severe sepsis, infected diabetic foot wound with osteo Worked with therapy today-did well overall. Good safety awareness, ambulated slowly and cautiously. Pain to foot at times-reports that twinges of sharp shooting pain can though him off when walking. Bowels are moving. Still has nausea, but not with emesis as before. Breathing well. Do chest pain. Working on keeping a positive attitude regarding his current situation. Objective Vital signs: Temp Pulse Resp BP Pulse Ox 97.8 F 83 18 106/69 96 10/02/16 15:59 10/02/16 15:59 10/02/16 15:59 10/02/16 15:59 10/02/16 15:59 Weight: 128.9 kg - Constitutional Present: no acute distress, well nourished, well developed, morbidly obese - Routine HEENT Exam Head: Present: normocephalic, atraumatic Eye: Present: EOMI, PERRL ENT: Present: mucous membranes dry - Routine Respiratory Exam Present: decreased breath sounds. Absent: respiratory distress, stridor, wheezes, crackles - Routine Cardiovascular Exam Present: RRR - Routine Abdominal Exam Present: soft, normoactive bowel sounds, non distended, non tender - Routine Extremities Exam Present: edema (+1 bilaterally ), pulses intact. Absent: cyanosis - Routine Musculoskeletal Exam Musculoskeletal: no clubbing or cyanosis, other (wound vac in place on foot ) - Routine Skin Exam Present: warm. Absent: pallor, mottling - Routine Neurological Exam Present: alert, oriented X3, CN II-XII intact, motor deficit, vision grossly intact, hearing grossly intact - Routine Psychiatric Exam Present: normal affect, normal thought process, cooperative, good insight, good judgment. Absent: depressed, anxious Results - Labs CBC & Chem 7: 10/02/16 07:32 10/02/16 07:32 Assessment and Plan (1) Severe sepsis Current visit: Yes Status: Resolved (2) Diabetic foot ulcer with osteomyelitis Current visit: Yes Status: Acute 10/01/16 Wound growing DILIA. (3) Type II diabetes mellitus Current visit: Yes Status: Chronic (4) CAD (coronary artery disease) Current visit: Yes Status: Chronic (5) CHF (congestive heart failure) Current visit: Yes Status: Chronic (6) Cough Current visit: Yes Status: Chronic Chronic - ? ROLANDO induced. (7) Peripheral neuropathy Current visit: Yes Status: Chronic (8) HTN (hypertension) Current visit: Yes Status: Chronic (9) Normochromic anemia Current visit: Yes Status: Chronic (10) ARSH (obstructive sleep apnea) Current visit: Yes Status: Suspected (11) Deep vein thrombosis (DVT) of popliteal vein of left lower extremity Current visit: Yes Status: Chronic (12) Nausea & vomiting Current visit: Yes Status: Acute (13) Hypoxia Current visit: Yes Status: Resolved (14) Morbid (severe) obesity due to excess calories Current visit: Yes Status: Chronic DVT Prophylaxis: Lovenox Resuscitation Status: Full Code Assessment and Plan: Continue cefazolin 2 grams IV q8 for coverage of DILIA. Continue wound vac. Lasix and Coreg restarted. Lisinopril restarted - monitor for increasing cough. Continue diabetic medications - sugars doing well. Continue to hold metformin. Continue with bowel motivation. Encourage continued activities and therapy. Recheck CBC in am due to resolving sepsis. Repeat BMP in am due to medication use. Active listening provided. Case discussed with CM. Time spent with pt care 25 minutes. Sepsis Assessment - Evaluation Sepsis screening result: No Definite Risk - Focused Exam Vital Signs Temp Pulse Resp BP Pulse Ox 10/02/16 15:59 97.8 F 83 18 106/69 96 10/02/16 11:03 97.3 F 81 16 121/69 97 10/02/16 07:35 97.0 F 70 16 119/71 97 10/02/16 07:30 97.5 F 74 16 118/71 96 Respiratory exam: Present: CTA bilaterally (anteriorly). Absent: wheezes Cardiovascular exam: Present: RRR. Absent: murmur Capillary refill: < 2-3 Seconds Hospital Course Summary Disclaimer: The visit summary below is not to be considered part of the above Progress Note. Hospital Course: 09/27 Admit to CCU for close observation with severe sepsis. Finish fluid resuscitation. Continue Zosyn and vancomycin for infected diabetic foot wound. Consult Dr. Medeiros tomorrow. May need ID consult as well. Venous Doppler to rule out DVT. Continue usual home insulin and give sliding scale insulin as well. Monitor Accu -Cheks. Lovenox for DVT prophylaxis Due to sepsis and hypotension we'll hold metformin and antihypertensives at this time. We'll also hold Lasix. Cardiac medications will likely need to be restarted in the next 1-2 days. Monitor closely for fluid overload after fluid resuscitation in a patient with history of CHF. Greater than 75 minutes of critical care time spent seeing and evaluating the patient and determining 09/28 Continue Zosyn and vancomycin for infected diabetic foot wound. Dr. Medeiros was consulted and plans for I&D later today. He will obtain deep wound cultures. We'll consult infectious disease to see tomorrow. Check d-dimer. Continue usual home insulin and give sliding scale insulin as well. Monitor Accu -Cheks. Continue Lovenox for DVT prophylaxis Metformin, antihypertensives, and Lasix are on hold at this time. Continue to monitor closely for fluid overload after fluid resuscitation in a patient with history of CHF. PROCEDURE Excisional surgical debridement of necrotic skin, subcutaneous tissues and fascia from left foot/diabetic foot ulcer. 09/29 Continue Zosyn and vancomycin for infected diabetic foot wound with osteomyelitis. Going back to surgery later today for fourth toe amputation and further debridement. Dr. Sin was consulted and recommends at least 6 weeks of IV antibiotics. We'll place PICC line today. Await final wound culture and sensitivity results. Start anticoagulation for DVT when okay with Dr. Medeiros Reading diabetes, adjust insulin as needed. He received a half dose of Lantus last night secondary to poor appetite and nothing by mouth status today. Blood sugars are fairly well controlled. Continue to monitor Accu-Cheks. Metformin and Lasix are on hold at this time. Check chest x-ray. May need diuresis. CBC and BMP tomorrow Possible transfer out of intensive care if doing well postoperatively. Postoperative Diagnosis: left diabetic foot ulcer with extensive wound and sepsis Procedure: left foot 3rd toe Ray amputation with application of wound vac 09/30 Continue Zosyn and vancomycin for antimicrobial coverage - Dr Sin recommending 6 weeks of IV therapy. Continue wound vac. Will restart Brillenta due to stent and Lovenox for DVT prevention. Lengthy discussion with pt regarding anticoagulation. He is against use of Xarelto/Coumadin-feels the DVT likely chronic. Is receiving Brillanta with drug study-concerns if stopped, would not be able to afford Xarelto and worries would not be able to get back on to Brellenta. Restart Lasix orally to help motivate fluid - BP improved from admit and severe sepsis resolved. Continue diabetic medications - sugars stable. Continue to hold metformin. Recheck CBC in am due to resolving sepsis. Repeat BMP in am due to diabetes, medication use and resolving sepsis. Will transfer to surgical floor as CCU needs resolved - condition has stabilized. 10/01 With culture showing DILIA, will change antibiotics to cefazolin 2 grams IV q8 hours as per Dr Sin's recommendation. Continue wound vac. Lasix and Coreg restarted. Will start lisinopril tomorrow - watch for increased cough with this medication. Continue diabetic medications - sugars stable. Continue to hold metformin. Start Colace 100mg BID to help bowel function. Have MOM, Miralax, and Dulcolax prn. PT/OT to see pt to maximize his functional status. Recheck CBC in am due to resolving sepsis. Repeat BMP in am due to diabetes, medication use and resolving sepsis. 10/02 Continue cefazolin 2 grams IV q8 for coverage of DILIA. Continue wound vac. Lasix and Coreg restarted. Lisinopril restarted - monitor for increasing cough. Continue diabetic medications - sugars doing well. Continue to hold metformin. Continue with bowel motivation. Bowels moving. Encourage continued activities and therapy. Recheck CBC in am due to resolving sepsis. Repeat BMP in am due to medication use.
[2016-10-02] MEDS: ASPIRIN *EC* 81 MG TABLET PO SCH (21:03)
[2016-10-02] MEDS: INSULIN ASPART 100unit/ml INJECTION SQ PRN (21:04)
[2016-10-02] MEDS: INSULIN GLARGINE 100unit/ml INJECTION SQ SCH (21:05)
[2016-10-03] MEDS: HYDROCODONE/APAP 5mg/325mg TABLET PO PRN ×5 (03:14→22:50)
[2016-10-03] MEDS: CEFAZOLIN 2 G in NS 100 ML IV SCH ×3 (05:35→21:26)
[2016-10-03] MEDS: ONDANSETRON 4 MG/2 ML INJECTION IVP PRN ×2 (09:07→17:58)
[2016-10-03] MEDS: LISINOPRIL 5 MG TABLET PO SCH (09:26)
[2016-10-03] MEDS: CARVEDILOL 6.25 MG TABLET PO SCH ×2 (09:26→17:50)
[2016-10-03] MEDS: INSULIN ASPART 100unit/ml INJECTION SQ SCH ×3 (09:26→17:50)
[2016-10-03] MEDS: DOCUSATE SODIUM 100 MG CAPSULE PO SCH ×2 (09:26→20:34)
[2016-10-03] MEDS: TICAGRELOR 90 MG TABLET PO SCH ×2 (09:26→20:35)
[2016-10-03] MEDS: ENOXAPARIN 40 MG/0.4 ML INJECTION SQ SCH (09:26)
[2016-10-03] MEDS: FUROSEMIDE 40 MG TABLET PO SCH (09:26)
[2016-10-03] MEDS: INSULIN ASPART 100unit/ml INJECTION SQ PRN ×3 (10:48→20:37)
[2016-10-03] MEDS: NS FLUSH BAG 500ml IV PRN (13:15)
[2016-10-03] MEDS: IBUPROFEN 600 MG TABLET PO PRN ×2 (15:30→21:24)
--- NOTE | 2016-10-03 17:48 | Progress Note ---
Subjective: F/U: Severe sepsis, infected diabetic foot wound with osteo Doing okay. Notes pain to his left foot bothersome. Never gets below a 2 (but he 's not surprised about that due to the wound and wound vac), but while [place] has been helping the pain tends to increase after about 3.5 to 4 hours. Tried Ibuprofen 600mg earlier-did decrease his pain, but pain did not continue to escalate. Nausea stable-notes chronic mild nausea. [place] not worsening this symptom. Keeping foods in-using anti-emetics prior to eating. Appetite not at baseline and not eating as much as at home, but not feeling like he is starving. Stools moved yesterday-not feeling constipated. Breathing stable. Cough not worsening. No f/c. Objective Vital signs: Temp Pulse Resp BP Pulse Ox 98.2 F 86 18 130/84 96 10/03/16 16:00 10/03/16 16:00 10/03/16 16:00 10/03/16 16:00 10/03/16 16:00 Weight: 132 kg - Constitutional Present: no acute distress, well nourished, well developed, morbidly obese, cooperative - Routine HEENT Exam Head: Present: normocephalic, atraumatic Eye: Present: EOMI, PERRL. Absent: conjunctival icterus ENT: Present: mucous membranes moist (No thrush) - Routine Respiratory Exam Present: CTA bilaterally. Absent: accessory muscle use, respiratory distress, wheezes, crackles - Routine Cardiovascular Exam Present: RRR - Routine Abdominal Exam Present: soft, normoactive bowel sounds, non distended, non tender. Absent: guarding - Routine Extremities Exam Present: cyanosis, clubbing, edema (+1 Left leg ), pulses intact - Routine Musculoskeletal Exam Musculoskeletal: no clubbing or cyanosis - Routine Skin Exam Present: dry, warm, wounds (Wound vac on left foot ) - Routine Neurological Exam Present: alert, oriented X3, CN II-XII intact, vision grossly intact, hearing grossly intact. Absent: motor deficit - Routine Psychiatric Exam Present: normal affect, cooperative, good insight, good judgment. Absent: anxious, agitated Results - Labs CBC & Chem 7: 10/02/16 07:32 10/02/16 07:32 Assessment and Plan (1) Severe sepsis Current visit: Yes Status: Resolved (2) Diabetic foot ulcer with osteomyelitis Current visit: Yes Status: Acute 10/01/16 Wound growing DILIA. (3) Type II diabetes mellitus Current visit: Yes Status: Chronic (4) CAD (coronary artery disease) Current visit: Yes Status: Chronic (5) CHF (congestive heart failure) Current visit: Yes Status: Chronic (6) Cough Current visit: Yes Status: Chronic Chronic - ? ROLANDO induced. (7) Peripheral neuropathy Current visit: Yes Status: Chronic (8) HTN (hypertension) Current visit: Yes Status: Chronic (9) Normochromic anemia Current visit: Yes Status: Chronic (10) ARSH (obstructive sleep apnea) Current visit: Yes Status: Suspected (11) Deep vein thrombosis (DVT) of popliteal vein of left lower extremity Current visit: Yes Status: Chronic (12) Nausea & vomiting Current visit: Yes Status: Acute (13) Hypoxia Current visit: Yes Status: Resolved (14) Morbid (severe) obesity due to excess calories Current visit: Yes Status: Chronic DVT Prophylaxis: Lovenox Resuscitation Status: Full Code Assessment and Plan: Continue cefazolin 2 grams IV q8 for coverage of DILIA. Continue wound vac. Will increase frequency of [place] to every four hours to help pain control. Blood pressure and HR stable on home medications. Blood sugars going well - will continue to hold on restarting Metformin. Continue with bowel motivation. Overall bowel function stable. Encourage continued activities and therapy. Recheck CBC and CRP in am due to resolving sepsis. Repeat CMP in am due to medication use. Case discussed with nursing. Time spent with pt care 25 minutes. Sepsis Assessment - Evaluation Sepsis screening result: No Definite Risk - Focused Exam Vital Signs Temp Pulse Resp BP Pulse Ox 10/03/16 16:00 98.2 F 86 18 130/84 96 10/03/16 13:56 98.5 F 78 18 145/85 H 96 10/03/16 07:43 97.6 F 75 18 116/71 96 Respiratory exam: Present: CTA bilaterally (anteriorly). Absent: wheezes Cardiovascular exam: Present: RRR. Absent: murmur Capillary refill: < 2-3 Seconds Hospital Course Summary Disclaimer: The visit summary below is not to be considered part of the above Progress Note. Hospital Course: 09/27 Admit to CCU for close observation with severe sepsis. Finish fluid resuscitation. Continue Zosyn and vancomycin for infected diabetic foot wound. Consult Dr. Medeiros tomorrow. May need ID consult as well. Venous Doppler to rule out DVT. Continue usual home insulin and give sliding scale insulin as well. Monitor Accu -Cheks. Lovenox for DVT prophylaxis. Due to sepsis and hypotension we'll hold metformin and antihypertensives at this time. We'll also hold Lasix. Cardiac medications will likely need to be restarted in the next 1-2 days. Monitor closely for fluid overload after fluid resuscitation in a patient with history of CHF. Greater than 75 minutes of critical care time spent seeing and evaluating the patient and determining 09/28 Continue Zosyn and vancomycin for infected diabetic foot wound. Dr. Medeiros was consulted and plans for I&D later today. He will obtain deep wound cultures. We'll consult infectious disease to see tomorrow. Check d-dimer. Continue usual home insulin and give sliding scale insulin as well. Monitor Accu -Cheks. Continue Lovenox for DVT prophylaxis Metformin, antihypertensives, and Lasix are on hold at this time. Continue to monitor closely for fluid overload after fluid resuscitation in a patient with history of CHF. PROCEDURE Excisional surgical debridement of necrotic skin, subcutaneous tissues and fascia from left foot/diabetic foot ulcer. 09/29 Continue Zosyn and vancomycin for infected diabetic foot wound with osteomyelitis. Going back to surgery later today for fourth toe amputation and further debridement. Dr. Sin was consulted and recommends at least 6 weeks of IV antibiotics. We'll place PICC line today. Await final wound culture and sensitivity results. Start anticoagulation for DVT when okay with Dr. Medeiros. Reading diabetes, adjust insulin as needed. He received a half dose of Lantus last night secondary to poor appetite and nothing by mouth status today. Blood sugars are fairly well controlled. Continue to monitor Accu-Cheks. Metformin and Lasix are on hold at this time. Check chest x-ray. May need diuresis. CBC and BMP tomorrow. Possible transfer out of intensive care if doing well postoperatively. Procedure: Left foot 3rd toe Ray amputation with application of wound vac Postoperative Diagnosis: left diabetic foot ulcer with extensive wound and sepsis 09/30 Continue Zosyn and vancomycin for antimicrobial coverage - Dr Sin recommending 6 weeks of IV therapy. Continue wound vac. Will restart Brillenta due to stent and Lovenox for DVT prevention. Lengthy discussion with pt regarding anticoagulation. He is against use of Xarelto/Coumadin-feels the DVT likely chronic. Is receiving Brillanta with drug study-concerns if stopped, would not be able to afford Xarelto and worries would not be able to get back on to Brellenta. Restart Lasix orally to help motivate fluid - BP improved from admit and severe sepsis resolved. Continue diabetic medications - sugars stable. Continue to hold metformin. Recheck CBC in am due to resolving sepsis. Repeat BMP in am due to diabetes, medication use and resolving sepsis. Will transfer to surgical floor as CCU needs resolved - condition has stabilized. 10/01 With culture showing DILIA, will change antibiotics to cefazolin 2 grams IV q8 hours as per Dr Sin's recommendation. Continue wound vac. Lasix and Coreg restarted. Will start lisinopril tomorrow - watch for increased cough with this medication. Continue diabetic medications - sugars stable. Continue to hold metformin. Start Colace 100mg BID to help bowel function. Have MOM, Miralax, and Dulcolax prn. PT/OT to see pt to maximize his functional status. Recheck CBC in am due to resolving sepsis. Repeat BMP in am due to diabetes, medication use and resolving sepsis. 10/02 Continue cefazolin 2 grams IV q8 for coverage of DILIA. Continue wound vac. Lasix and Coreg restarted. Lisinopril restarted - monitor for increasing cough. Continue diabetic medications - sugars doing well. Continue to hold metformin. Continue with bowel motivation. Bowels moving. Encourage continued activities and therapy. Recheck CBC in am due to resolving sepsis. Repeat BMP in am due to medication use. 10/03 Continue cefazolin 2 grams IV q8 for coverage of DILIA. Continue wound vac. Will increase frequency of [place] to every four hours to help pain control. Blood pressure and HR stable on home medications. Blood sugars going well - will continue to hold on restarting Metformin. Continue with bowel motivation. Overall bowel function stable. Encourage continued activities and therapy. Recheck CBC and CRP in am due to resolving sepsis. Repeat CMP in am due to medication use.
[2016-10-03] MEDS: ASPIRIN *EC* 81 MG TABLET PO SCH (21:24)
[2016-10-03] MEDS: INSULIN GLARGINE 100unit/ml INJECTION SQ SCH (21:25)
[2016-10-04] MEDS: CEFAZOLIN 2 G in NS 100 ML IV SCH ×3 (05:09→21:33)
[2016-10-04] MEDS: HYDROCODONE/APAP 5mg/325mg TABLET PO PRN ×3 (05:17→21:26)
[2016-10-04] MEDS: ONDANSETRON 4 MG/2 ML INJECTION IVP PRN (08:18)
[2016-10-04] MEDS: SALINE FLUSH 10ml SYRINGE IVF PRN (08:18)
[2016-10-04] MEDS: FUROSEMIDE 40 MG TABLET PO SCH (08:37)
[2016-10-04] MEDS: LISINOPRIL 5 MG TABLET PO SCH (08:37)
[2016-10-04] MEDS: CARVEDILOL 6.25 MG TABLET PO SCH ×2 (08:37→17:39)
[2016-10-04] MEDS: INSULIN ASPART 100unit/ml INJECTION SQ SCH ×3 (08:37→18:03)
[2016-10-04] MEDS: DOCUSATE SODIUM 100 MG CAPSULE PO SCH ×2 (08:37→21:25)
[2016-10-04] MEDS: IBUPROFEN 600 MG TABLET PO PRN ×2 (08:37→22:21)
[2016-10-04] MEDS: TICAGRELOR 90 MG TABLET PO SCH ×2 (08:37→21:25)
[2016-10-04] MEDS: ENOXAPARIN 40 MG/0.4 ML INJECTION SQ SCH (08:38)
[2016-10-04] MEDS: INSULIN ASPART 100unit/ml INJECTION SQ PRN ×3 (10:50→22:22)
--- NOTE | 2016-10-04 11:04 | Progress Note ---
Subjective Date: 10/04/16 Subjective: Mr. Alas reports that he's feeling better. He has had some constipation from his pain meds, and some intermittent nausea. He reports that the wound VAC change was painful. Exam Vital Signs: Temp Pulse Resp BP Pulse Ox 97.3 F 84 14 133/84 98 10/04/16 07:00 10/04/16 07:00 10/04/16 07:00 10/04/16 07:00 10/04/16 07:00 Height: 1.78 m Weight: 131 kg Body Mass Index: 41.4 - Constitutional Present: no acute distress, well nourished, well developed, cooperative - Routine HEENT Exam ENT: Present: mucous membranes moist - Routine Neck Exam Present: supple - Routine Cardiovascular Exam Present: RRR - Routine Abdominal Exam Present: soft, normoactive bowel sounds, non tender - Routine Extremities Exam Absent: edema Comments: wound VAC on L foot - Routine Skin Exam Absent: rash - Routine Neurological Exam Present: alert, oriented X3, CN II-XII intact. Absent: motor deficit - Routine Psychiatric Exam Present: normal affect - Additional findings Additional findings: PICC line RUE Results - Labs CBC & Chem 7: 10/04/16 05:08 10/04/16 05:08 Labs: Microbiology 09/27/16 15:53 Peripheral/Iv Start Blood Culture - Final No Growth After 5 Days 09/27/16 15:58 Peripheral/Iv Start Blood Culture - Final No Growth After 5 Days 09/28/16 16:21 Foot, Left Gram Stain - Final 09/28/16 16:21 Foot, Left Surgical Culture - Final Staphylococcus aureus Impression: Impression: Sepsis secondary to musculoskeletal source. L diabetic foot infection with osteomyelitis, s/p I&D 09/28/16, wound culture with MSSA. DM II, IR. CHF with EF 40%. Chronic thrombus L superficial femoral and popliteal veins. S /p left foot 3rd toe Ray amputation with application of wound vac on 09/29/16. Pathology report with positive bony margins. Recommendation: Recommendation: Continue Ancef 2 gm IV q8. I would recommend treating him for 6 weeks with IV antibiotics for osteomyelitis (6 weeks from 09/29/16). Hopefully this can be arranged as an outpatient. I discussed with case management. He will need weekly CBC with diff, BMP, CRP faxed to my office [phone] and weekly PICC cares. I will follow up with him in the wound clinic. Sepsis Assessment - Evaluation Sepsis screening result: No Definite Risk - Focused Exam Vital Signs Temp Pulse Resp BP Pulse Ox 10/04/16 07:00 97.3 F 84 14 133/84 98 10/03/16 23:22 97.9 F 72 18 129/75 93 Respiratory exam: Present: CTA bilaterally (anteriorly). Absent: wheezes Cardiovascular exam: Present: RRR. Absent: murmur Capillary refill: < 2-3 Seconds
[2016-10-04] MEDS: HYDROMORPHONE 2 MG/ML INJECTION IVP PRN (11:37)
--- NOTE | 2016-10-04 13:53 | Progress Note ---
Subjective: F/U: Severe sepsis, infected diabetic foot wound with osteo Pt seen as Dr Medeiros changing wound vac. Doing well overall. Pain varies (uncomfortable with wound vac change). No f/c. Breathing well. Cough minimal. Nausea stable. Bowels moving-not feeling ab cramping or bloating. No chest pain/pressure. Blood sugars stable. Objective Vital signs: Temp Pulse Resp BP Pulse Ox 97.3 F 84 14 133/84 98 10/04/16 07:00 10/04/16 07:00 10/04/16 07:00 10/04/16 07:00 10/04/16 07:00 Body Mass Index: 41.4 - Constitutional Present: no acute distress, well nourished, well developed, morbidly obese, cooperative - Routine HEENT Exam Head: Present: normocephalic, atraumatic Eye: Present: EOMI, PERRL. Absent: conjunctival icterus ENT: Present: mucous membranes moist - Routine Respiratory Exam Present: CTA bilaterally. Absent: respiratory distress, rhonchi, wheezes, crackles - Routine Cardiovascular Exam Present: RRR - Routine Abdominal Exam Present: soft, normoactive bowel sounds, non distended, non tender - Routine Extremities Exam Present: edema (+1 on left lower ext) - Routine Musculoskeletal Exam Musculoskeletal: no clubbing or cyanosis - Routine Skin Exam Present: warm, wounds (To left foot-wound vac changed.). Absent: mottling, jaundice - Routine Neurological Exam Present: alert, oriented X3, CN II-XII intact, vision grossly intact, hearing grossly intact. Absent: motor deficit - Routine Psychiatric Exam Present: normal affect, normal thought process, cooperative, good insight, good judgment Results - Labs CBC & Chem 7: 10/04/16 05:08 10/04/16 05:08 Assessment and Plan (1) Diabetic foot ulcer with osteomyelitis Current visit: Yes Status: Acute 10/01/16 Wound growing DILIA. (2) Severe sepsis Current visit: Yes Status: Resolved (3) Type II diabetes mellitus Current visit: Yes Status: Chronic (4) CAD (coronary artery disease) Current visit: Yes Status: Chronic (5) CHF (congestive heart failure) Current visit: Yes Status: Chronic (6) Cough Current visit: Yes Status: Chronic Chronic - ? ROLANDO induced. (7) Peripheral neuropathy Current visit: Yes Status: Chronic (8) HTN (hypertension) Current visit: Yes Status: Chronic (9) Normochromic anemia Current visit: Yes Status: Chronic (10) ARSH (obstructive sleep apnea) Current visit: Yes Status: Suspected (11) Deep vein thrombosis (DVT) of popliteal vein of left lower extremity Current visit: Yes Status: Chronic (12) Nausea & vomiting Current visit: Yes Status: Acute (13) Hypoxia Current visit: Yes Status: Resolved (14) Morbid (severe) obesity due to excess calories Current visit: Yes Status: Chronic DVT Prophylaxis: Lovenox Resuscitation Status: Full Code Assessment and Plan: Continue cefazolin 2 grams IV q8 for coverage of DILIA. Will need 6 weeks from . Weekly outpatient lab of CBC with diff, BMP, and CRP faxed to Dr Sin - . Weekly PICC line care needed. Continue wound vac-changed today. Wound improving. Dr Medeiros not feeling further debridements needed. Arrangements being made for outpatient wound vac. Continue pain control. Encourage activities. Blood pressure and blood sugars stable with current regimen. Recheck CBC and BMP in am due to medication use and resolving sepsis. Hope for discharge to home in near future, once outpatient wound vac and antibiotic arrangements made. Case discussed with CM, Dr Medeiros, and Dr Sin. Time spent with pt care 25 minutes. Sepsis Assessment - Evaluation Sepsis screening result: No Definite Risk - Focused Exam Vital Signs Temp Pulse Resp BP Pulse Ox 10/04/16 07:00 97.3 F 84 14 133/84 98 Respiratory exam: Present: CTA bilaterally (anteriorly). Absent: wheezes Cardiovascular exam: Present: RRR. Absent: murmur Capillary refill: < 2-3 Seconds Hospital Course Summary Disclaimer: The visit summary below is not to be considered part of the above Progress Note. Hospital Course: 09/27 Admit to CCU for close observation with severe sepsis. Finish fluid resuscitation. Continue Zosyn and vancomycin for infected diabetic foot wound. Consult Dr. Medeiros tomorrow. May need ID consult as well. Venous Doppler to rule out DVT. Continue usual home insulin and give sliding scale insulin as well. Monitor Accu -Cheks. Lovenox for DVT prophylaxis. Due to sepsis and hypotension we'll hold metformin and antihypertensives at this time. We'll also hold Lasix. Cardiac medications will likely need to be restarted in the next 1-2 days. Monitor closely for fluid overload after fluid resuscitation in a patient with history of CHF. Greater than 75 minutes of critical care time spent seeing and evaluating the patient and determining 09/28 Continue Zosyn and vancomycin for infected diabetic foot wound. Dr. Medeiros was consulted and plans for I&D later today. He will obtain deep wound cultures. We'll consult infectious disease to see tomorrow. Check d-dimer. Continue usual home insulin and give sliding scale insulin as well. Monitor Accu -Cheks. Continue Lovenox for DVT prophylaxis Metformin, antihypertensives, and Lasix are on hold at this time. Continue to monitor closely for fluid overload after fluid resuscitation in a patient with history of CHF. PROCEDURE Excisional surgical debridement of necrotic skin, subcutaneous tissues and fascia from left foot/diabetic foot ulcer. 09/29 Continue Zosyn and vancomycin for infected diabetic foot wound with osteomyelitis. Going back to surgery later today for fourth toe amputation and further debridement. Dr. Sin was consulted and recommends at least 6 weeks of IV antibiotics. We'll place PICC line today. Await final wound culture and sensitivity results. Start anticoagulation for DVT when okay with Dr. Medeiros. Reading diabetes, adjust insulin as needed. He received a half dose of Lantus last night secondary to poor appetite and nothing by mouth status today. Blood sugars are fairly well controlled. Continue to monitor Accu-Cheks. Metformin and Lasix are on hold at this time. Check chest x-ray. May need diuresis. CBC and BMP tomorrow. Possible transfer out of intensive care if doing well postoperatively. Procedure: Left foot 3rd toe Ray amputation with application of wound vac Postoperative Diagnosis: left diabetic foot ulcer with extensive wound and sepsis 09/30 Continue Zosyn and vancomycin for antimicrobial coverage - Dr Sin recommending 6 weeks of IV therapy. Continue wound vac. Will restart Brillenta due to stent and Lovenox for DVT prevention. Lengthy discussion with pt regarding anticoagulation. He is against use of Xarelto/Coumadin-feels the DVT likely chronic. Is receiving Brillanta with drug study-concerns if stopped, would not be able to afford Xarelto and worries would not be able to get back on to Brellenta. Restart Lasix orally to help motivate fluid - BP improved from admit and severe sepsis resolved. Continue diabetic medications - sugars stable. Continue to hold metformin. Recheck CBC in am due to resolving sepsis. Repeat BMP in am due to diabetes, medication use and resolving sepsis. Will transfer to surgical floor as CCU needs resolved - condition has stabilized. 10/01 With culture showing DILIA, will change antibiotics to cefazolin 2 grams IV q8 hours as per Dr Sin's recommendation. Continue wound vac. Lasix and Coreg restarted. Will start lisinopril tomorrow - watch for increased cough with this medication. Continue diabetic medications - sugars stable. Continue to hold metformin. Start Colace 100mg BID to help bowel function. Have MOM, Miralax, and Dulcolax prn. PT/OT to see pt to maximize his functional status. Recheck CBC in am due to resolving sepsis. Repeat BMP in am due to diabetes, medication use and resolving sepsis. 10/02 Continue cefazolin 2 grams IV q8 for coverage of DILIA. Continue wound vac. Lasix and Coreg restarted. Lisinopril restarted - monitor for increasing cough. Continue diabetic medications - sugars doing well. Continue to hold metformin. Continue with bowel motivation. Bowels moving. Encourage continued activities and therapy. Recheck CBC in am due to resolving sepsis. Repeat BMP in am due to medication use. 10/03 Continue cefazolin 2 grams IV q8 for coverage of DILIA. Continue wound vac. Will increase frequency of [place] to every four hours to help pain control. Blood pressure and HR stable on home medications. Blood sugars going well - will continue to hold on restarting Metformin. Continue with bowel motivation. Overall bowel function stable. Encourage continued activities and therapy. Recheck CBC and CRP in am due to resolving sepsis. Repeat CMP in am due to medication use. 10/04 Continue cefazolin 2 grams IV q8 for coverage of DILIA. Will need 6 weeks from . Weekly outpatient lab of CBC with diff, BMP, and CRP faxed to Dr Sin - . Weekly PICC line care needed. Continue wound vac-changed today. Wound improving. Dr Medeiros not feeling further debridements needed. Arrangements being made for outpatient wound vac. Continue pain control. Encourage activities. Blood pressure and blood sugars stable with current regimen. Recheck CBC and BMP in am due to medication use and resolving sepsis. Hope for discharge to home in near future, once outpatient wound vac and antibiotic arrangements made.
--- NOTE | 2016-10-04 16:19 | Wound Care Progress Note ---
Wound Management - Wound Left Foot Wound Present on Admission?: Yes Length: 11 Width: 1.5 Depth: 2 Wound Bed Appearance: Beefy Red, [place] Wound Appearance: [place], Taut, Well Defined Tunneling: No Undermining: No Drainage Description: Serosanguineous Drainage Amount: Moderate Drainage Odor: Slight Odor Dressing Status: Changed Irrigant Solution: Saline Irrigant Packing Type: Woundvac Sponge Number of Packing Pieces Removed?: 3 Number of Packing Pieces Placed?: 2 Secondary Dressing: Transparent Drape Dressing Change Date: 10/04/16 Dressing Change Time: 13:00 Dressing Change Patient Tolerance: Tolerated Well
--- NOTE | 2016-10-04 18:00 | Progress Note ---
DATE OF SERVICE 10/04/2016 FINDINGS The patient today is without complaints. PHYSICAL EXAM VITAL SIGNS: Afebrile, normotensive. Please refer to EMR. EXTREMITIES: Attention was focused to the left foot. Wound VAC was removed. One can begin to see good granulation tissue forming within the wound bed. Along the medial aspect of the wound adjacent to the second toe there is some visible tendon that is void of granulation tissue at this time. A portion of the phalanx is also present involving the second toe. One can see some residual necrotic subcutaneous tissues and a small amount of fascia that also appears to be nonviable within the depth the wound. ASSESSMENT 56-year-old gentleman status post left third ray amputation. Patient doing well. PLAN At the bedside today an excisional surgical debridement was carried out utilizing a sharp surgical curette. Nonviable subcutaneous tissues were excised until a minimal amount of bleeding began to occur. From a wound standpoint I am pleased with the patient's progress. Hopefully over the next several weeks he will form good granulation tissue throughout the wound bed and a delayed primary closure will be able to be completed. I do believe the patient could be discharged to home once arrangements have been made for home health care and continuation of negative wound pressure therapy on an outpatient basis. As stated above, I am pleased with the patient's progress at this time. ISELA
[2016-10-04] MEDS: ASPIRIN *EC* 81 MG TABLET PO SCH (21:25)
[2016-10-04] MEDS: INSULIN GLARGINE 100unit/ml INJECTION SQ SCH (21:34)
[2016-10-05] MEDS: IBUPROFEN 600 MG TABLET PO PRN ×2 (02:24→20:24)
[2016-10-05] MEDS: SALINE FLUSH 10ml SYRINGE IVF PRN ×5 (03:42→21:12)
[2016-10-05] MEDS: ONDANSETRON 4 MG/2 ML INJECTION IVP PRN ×2 (03:42→14:26)
[2016-10-05] MEDS: HYDROCODONE/APAP 5mg/325mg TABLET PO PRN ×3 (04:38→21:52)
[2016-10-05] MEDS: DiphenhydrAMINE 25 MG CAPSULE PO PRN (05:32)
[2016-10-05] MEDS: CEFAZOLIN 2 G in NS 100 ML IV SCH ×3 (05:54→20:25)
[2016-10-05] MEDS: FUROSEMIDE 40 MG TABLET PO SCH (08:39)
[2016-10-05] MEDS: DOCUSATE SODIUM 100 MG CAPSULE PO SCH ×2 (08:39→20:25)
[2016-10-05] MEDS: LISINOPRIL 5 MG TABLET PO SCH (08:40)
[2016-10-05] MEDS: ENOXAPARIN 40 MG/0.4 ML INJECTION SQ SCH (08:40)
[2016-10-05] MEDS: TICAGRELOR 90 MG TABLET PO SCH (08:40)
[2016-10-05] MEDS: CARVEDILOL 6.25 MG TABLET PO SCH ×2 (08:40→17:19)
[2016-10-05] MEDS: INSULIN ASPART 100unit/ml INJECTION SQ SCH ×3 (09:36→18:17)
[2016-10-05] MEDS: HYDROMORPHONE 2 MG/ML INJECTION IVP PRN (12:19)
--- NOTE | 2016-10-05 12:57 | General Surgery Procedure Note ---
Date of Procedure: 10/05/16 Surgeon: Mala Postoperative Diagnosis: Hemorrhage from left foot surgical site Procedure: left foot wound explorations with control of bleeding. Estimated Blood Loss: See Anesthesia Record.
[2016-10-05] MEDS ORDERED: BUPIVACAINE 0.25%/EPI 1:200,000 30ml SDV ONE (13:01)
[2016-10-05] MEDS ORDERED: BUPIVACAINE 0.25%/EPI 1:200,000 30ml SDV ID ONE (13:39)
--- NOTE | 2016-10-05 16:19 | Progress Note ---
DATE OF SERVICE 10/05/2016 FINDINGS I was requested to go to Mr. Alas's room earlier today. The nursing staff had noted there was a fair amount of blood within the wound VAC as well as coming out around the wound VAC dressing. EXAM VITAL SIGNS: Afebrile, normotensive. Last recorded vitals include temperature 97.2, pulse 79, respirations 16, blood pressure 141/75. LEFT LOWER EXTREMITY: Wound VAC dressing was removed. Unfortunately, within the depth of the wound there did appear to be an arterial bleeder that was present. Pressure upon the plantar aspect of the foot did result in decreasing bleeding. ASSESSMENT 56-year-old diabetic gentleman status post left third toe ray amputation. Patient with develop of postoperative bleeding. PLAN At the bedside I did try to place some [id number] sutures of 3-0 Vicryl to obtain hemostasis. This was to no avail. Wound was then tightly packed. Dressing was applied. Instructions were given to obtain consent for exploration of the wound with ligation of bleeding vessel in left foot and reapplication of wound VAC. I did discuss with the hospitalist system in regards to the patient's recurrence of bleeding. The patient has been once again anticoagulated and is on Lovenox and Brilinta. The patient may need to be held on full anticoagulation given his onset of bleeding within his wound. I did discuss with the patient the proposed plan. The patient understood and agreed. The patient will be taken to the operative suite where exploration of his wound will be undertaken and ligation of the bleeding vessel within the depth the wound. Hopefully will be able to obtain hemostasis. ISELA
--- NOTE | 2016-10-05 16:32 | Operative Note ---
DATE OF SERVICE 10/05/2016 SURGEON Vic Medeiros MD PREOPERATIVE DIAGNOSIS Status post left third toe ray amputation, development of postoperative bleeding following anticoagulation. POSTOPERATIVE DIAGNOSIS Status post left third toe ray amputation, development of postoperative bleeding following anticoagulation. PROCEDURE Exploration of wound with ligation of bleeding vessel involving prior left third toe ray amputation. ANESTHESIA Local. BRIEF HISTORY/INDICATIONS Mr. Alas is a 56-year-old gentleman who about a week to 10 days ago had undergone a left third ray amputation. Today on rounds nursing staff had notified me that he was bleeding from his wound. One could see an arterial bleeding point within the depth of the wound. An attempt was made at obtaining hemostasis out on the surgical floor. This was to no avail. It was therefore recommended to the patient that he undergo exploration of his wound with control of bleeding. For completeness please refer to notes included in the patient's chart. NARRATIVE OF PROCEDURE After informed consent was obtained the patient was brought to the operative suite and the left foot was prepped and draped in sterile fashion. Formal time- out was then completed. One could see that the bleeding was coming forth from just beneath the transected third metatarsal. To better visualize this area I elected to extend the original incision proximally. First, 0.25% Marcaine with epinephrine was injected proximal to the ray amputation site. After a fair amount of local anesthetic had been injected, the original incision was extended proximally so that one could see beneath the third metatarsal that had been previously transected. One could see a bleeding vessel at this location. [id number] suture of 3-0 Vicryl was placed which did result in hemostasis. This area was also cauterized. Meticulous hemostasis was obtained within the wound. There was no evidence for bleeding. A sterile dressing was then applied. The patient will be sent back to the surgical floor once deemed in stable condition. A wound VAC will be reapplied once he is out on the surgical floor by our wound care staff. ISELA
--- NOTE | 2016-10-05 17:02 | Progress Note ---
Subjective: Rough morning. Had significant bleeding from foot wound, not able to be controlled at bedside. Take to OR where hemostasis achieved. HGB did drop from 11.1 this am to 10.4. Foot without pain/discomfort currently-nerve block not worn off. Breathing stable. Cough not increasing with reinstitution of lisinopril. Blood pressure stable. No chest pain. Eating better. Sugars decreasing with increase of insulin yesterday (still lower mealtime insulin dose than prior to admission). Objective Vital signs: Temp Pulse Resp BP Pulse Ox 98.1 F 77 20 134/77 100 10/05/16 13:18 10/05/16 14:17 10/05/16 14:17 10/05/16 14:17 10/05/16 14:17 Weight: 131 kg - Constitutional Present: no acute distress, well nourished, well developed, morbidly obese, cooperative - Routine HEENT Exam Head: Present: normocephalic, atraumatic Eye: Present: EOMI ENT: Present: mucous membranes moist - Routine Respiratory Exam Present: CTA bilaterally. Absent: respiratory distress, rhonchi, wheezes - Routine Cardiovascular Exam Present: RRR - Routine Extremities Exam Present: edema (+1 edema to left LE. ). Absent: cyanosis, clubbing - Routine Musculoskeletal Exam Musculoskeletal: no clubbing or cyanosis - Routine Skin Exam Present: dry, warm, wounds (Wound vac present on left LE. ). Absent: mottling - Routine Neurological Exam Present: alert, oriented X3, CN II-XII intact, vision grossly intact, hearing grossly intact. Absent: motor deficit - Routine Psychiatric Exam Present: normal affect, normal thought process, good insight, good judgment Results - Labs CBC & Chem 7: 10/05/16 14:00 10/05/16 04:05 Assessment and Plan (1) Diabetic foot ulcer with osteomyelitis Current visit: Yes Status: Acute 10/01/16 Wound growing DILIA. (2) Severe sepsis Current visit: Yes Status: Resolved (3) Type II diabetes mellitus Current visit: Yes Status: Chronic (4) CAD (coronary artery disease) Current visit: Yes Status: Chronic (5) CHF (congestive heart failure) Current visit: Yes Status: Chronic (6) Cough Current visit: Yes Status: Chronic Chronic - ? ROLANDO induced. (7) Peripheral neuropathy Current visit: Yes Status: Chronic (8) HTN (hypertension) Current visit: Yes Status: Chronic (9) Normochromic anemia Current visit: Yes Status: Chronic (10) ARSH (obstructive sleep apnea) Current visit: Yes Status: Suspected (11) Deep vein thrombosis (DVT) of popliteal vein of left lower extremity Current visit: Yes Status: Chronic (12) Nausea & vomiting Current visit: Yes Status: Acute (13) Hypoxia Current visit: Yes Status: Resolved (14) Morbid (severe) obesity due to excess calories Current visit: Yes Status: Chronic DVT Prophylaxis: SCD's Assessment and Plan: Hold Brilinta, ASA, and Lovenox due to bleeding. Continue cefazolin 2 grams IV q8 for coverage of DILIA. Will need 6 weeks from . Weekly outpatient lab of CBC with diff, BMP, and CRP faxed to Dr Sin - [phone]. Weekly PICC line care needed. Continue pain control. Encourage activities. Blood pressure and blood sugars stable with current regimen. Recheck CBC and BMP in am due to medication use and resolving sepsis. Hope for discharge to home in near future, antibiotic and wound vac arrangements made. Case discussed with CM and Dr Medeiros. Time spent with pt care 25 minutes. Sepsis Assessment - Evaluation Sepsis screening result: No Definite Risk Hospital Course Summary Disclaimer: The visit summary below is not to be considered part of the above Progress Note. Hospital Course: 09/27 Admit to CCU for close observation with severe sepsis. Finish fluid resuscitation. Continue Zosyn and vancomycin for infected diabetic foot wound. Consult Dr. Medeiros tomorrow. May need ID consult as well. Venous Doppler to rule out DVT. Continue usual home insulin and give sliding scale insulin as well. Monitor Accu -Cheks. Lovenox for DVT prophylaxis. Due to sepsis and hypotension we'll hold metformin and antihypertensives at this time. We'll also hold Lasix. Cardiac medications will likely need to be restarted in the next 1-2 days. Monitor closely for fluid overload after fluid resuscitation in a patient with history of CHF. Greater than 75 minutes of critical care time spent seeing and evaluating the patient and determining 09/28 Continue Zosyn and vancomycin for infected diabetic foot wound. Dr. Medeiros was consulted and plans for I&D later today. He will obtain deep wound cultures. We'll consult infectious disease to see tomorrow. Check d-dimer. Continue usual home insulin and give sliding scale insulin as well. Monitor Accu -Cheks. Continue Lovenox for DVT prophylaxis Metformin, antihypertensives, and Lasix are on hold at this time. Continue to monitor closely for fluid overload after fluid resuscitation in a patient with history of CHF. PROCEDURE Excisional surgical debridement of necrotic skin, subcutaneous tissues and fascia from left foot/diabetic foot ulcer. 09/29 Continue Zosyn and vancomycin for infected diabetic foot wound with osteomyelitis. Going back to surgery later today for fourth toe amputation and further debridement. Dr. Sin was consulted and recommends at least 6 weeks of IV antibiotics. We'll place PICC line today. Await final wound culture and sensitivity results. Start anticoagulation for DVT when okay with Dr. Medeiros. Reading diabetes, adjust insulin as needed. He received a half dose of Lantus last night secondary to poor appetite and nothing by mouth status today. Blood sugars are fairly well controlled. Continue to monitor Accu-Cheks. Metformin and Lasix are on hold at this time. Check chest x-ray. May need diuresis. CBC and BMP tomorrow. Possible transfer out of intensive care if doing well postoperatively. Procedure: Left foot 3rd toe Ray amputation with application of wound vac Postoperative Diagnosis: left diabetic foot ulcer with extensive wound and sepsis 09/30 Continue Zosyn and vancomycin for antimicrobial coverage - Dr Sin recommending 6 weeks of IV therapy. Continue wound vac. Will restart Brilinta due to stent and Lovenox for DVT prevention. Lengthy discussion with pt regarding anticoagulation. He is against use of Xarelto/Coumadin-feels the DVT likely chronic. Is receiving Brilinta with drug study-concerns if stopped, would not be able to afford Xarelto and worries would not be able to get back on to [place]. Will restart Brilinta and initiate low dose Lovenox. Restart Lasix orally to help motivate fluid - BP improved from admit and severe sepsis resolved. Continue diabetic medications - sugars stable. Continue to hold metformin. Recheck CBC in am due to resolving sepsis. Repeat BMP in am due to diabetes, medication use and resolving sepsis. Will transfer to surgical floor as CCU needs resolved - condition has stabilized. 10/01 With culture showing DILIA, will change antibiotics to cefazolin 2 grams IV q8 hours as per Dr Sin's recommendation. Continue wound vac. Lasix and Coreg restarted. Will start lisinopril tomorrow - watch for increased cough with this medication. Continue diabetic medications - sugars stable. Continue to hold metformin. Start Colace 100mg BID to help bowel function. Have MOM, Miralax, and Dulcolax prn. PT/OT to see pt to maximize his functional status. Recheck CBC in am due to resolving sepsis. Repeat BMP in am due to diabetes, medication use and resolving sepsis. 10/02 Continue cefazolin 2 grams IV q8 for coverage of DILIA. Continue wound vac. Lasix and Coreg restarted. Lisinopril restarted - monitor for increasing cough. Continue diabetic medications - sugars doing well. Continue to hold metformin. Continue with bowel motivation. Bowels moving. Encourage continued activities and therapy. Recheck CBC in am due to resolving sepsis. Repeat BMP in am due to medication use. 10/03 Continue cefazolin 2 grams IV q8 for coverage of DILIA. Continue wound vac. Will increase frequency of [place] to every four hours to help pain control. Blood pressure and HR stable on home medications. Blood sugars going well - will continue to hold on restarting Metformin. Continue with bowel motivation. Overall bowel function stable. Encourage continued activities and therapy. Recheck CBC and CRP in am due to resolving sepsis. Repeat CMP in am due to medication use. 10/04 Continue cefazolin 2 grams IV q8 for coverage of DILIA. Will need 6 weeks from . Weekly outpatient lab of CBC with diff, BMP, and CRP faxed to Dr Sin - . Weekly PICC line care needed. Continue wound vac-changed today. Wound improving. Dr Medeiros not feeling further debridements needed. Arrangements being made for outpatient wound vac. Continue pain control. Encourage activities. Blood pressure and blood sugars stable with current regimen. Recheck CBC and BMP in am due to medication use and resolving sepsis. Hope for discharge to home in near future, once outpatient wound vac and antibiotic arrangements made. 10/05 Rough morning. Had significant bleeding from foot wound, not able to be controlled at bedside. Take to OR where hemostasis achieved. HGB did drop from 11.1 this am to 10.4. Foot without pain/discomfort currently-nerve block not worn off. Breathing stable. Cough not increasing with reinstitution of lisinopril. Blood pressure stable. No chest pain. Eating better. Sugars decreasing with increase of insulin yesterday (still lower mealtime insulin dose than prior to admission). Hold Brilinta, ASA, and Lovenox due to bleeding. Continue cefazolin 2 grams IV q8 for coverage of DILIA. Will need 6 weeks from . Continue pain control. Encourage activities. Blood pressure and blood sugars stable with current regimen. Recheck CBC and BMP in am due to medication use and resolving sepsis. Hope for discharge to home in near future, antibiotic and wound vac arrangements made. Procedure: Surgeon: Mala Postoperative Diagnosis: Hemorrhage from left foot surgical site Procedure: Left foot wound explorations with control of bleeding.
--- NOTE | 2016-10-05 17:03 | Wound Care Progress Note ---
Wound Management - Wound Left Foot Wound Present on Admission?: Yes Wound Bed Appearance: Beefy Red, Bone Tendon [place] Wound Appearance: Shiny, Taut, Macerated, Well Defined Tunneling: No Undermining: No Drainage Description: Serosanguineous Drainage Odor: No Odor Dressing Status: Changed Packing Type: Woundvac Sponge Number of Packing Pieces Placed?: 2 Secondary Dressing: Transparent Drape, Trac Pad Dressing Change Date: 10/05/16 (Pt had returned from OR where bleed was controlled) Dressing Change Time: 14:00 Dressing Change Patient Tolerance: Tolerated Well
[2016-10-05] MEDS: INSULIN ASPART 100unit/ml INJECTION SQ PRN ×2 (17:19→20:26)
[2016-10-05] MEDS: INSULIN GLARGINE 100unit/ml INJECTION SQ SCH (21:13)
[2016-10-06] MEDS: HYDROCODONE/APAP 5mg/325mg TABLET PO PRN ×3 (02:40→22:47)
[2016-10-06] MEDS: NS FLUSH BAG 500ml IV PRN (04:18)
[2016-10-06] MEDS: CEFAZOLIN 2 G in NS 100 ML IV SCH ×3 (04:18→22:03)
[2016-10-06] MEDS: IBUPROFEN 600 MG TABLET PO PRN ×2 (05:56→16:48)
[2016-10-06] MEDS: INSULIN ASPART 100unit/ml INJECTION SQ SCH ×3 (07:58→17:37)
[2016-10-06] MEDS: LISINOPRIL 5 MG TABLET PO SCH (08:36)
[2016-10-06] MEDS: DOCUSATE SODIUM 100 MG CAPSULE PO SCH ×2 (08:36→22:04)
[2016-10-06] MEDS: CARVEDILOL 6.25 MG TABLET PO SCH ×2 (08:36→17:37)
[2016-10-06] MEDS: FUROSEMIDE 40 MG TABLET PO SCH (08:36)
--- NOTE | 2016-10-06 11:42 | Progress Note ---
Subjective: Pt states he is feeling well today. Denies any pain on his foot. Currently with wound vac. No blood seen. Pt had surgery yesterday due to sudden onset bleed on his foot. Apparently this was an arterial bleed. Pt states he is anxious about his financial affairs. 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 Has been ambulating with assistance. States he is on a study with Brilinta and would like to resume it soon. No CP, has minimal dyspnea, no hemoptysis. Objective Vital signs: Temp Pulse Resp BP Pulse Ox 98.3 F 82 18 145/87 H 98 10/06/16 07:29 10/06/16 07:29 10/06/16 07:29 10/06/16 07:29 10/06/16 07:29 Rhythm: Normal Sinus Rhythm Weight: 131 kg - Constitutional Present: no acute distress, well nourished, well developed, obese, cooperative - Routine HEENT Exam Head: Present: normocephalic, atraumatic Eye: Present: EOMI, PERRL - Routine Respiratory Exam Present: CTA bilaterally - Routine Cardiovascular Exam Present: RRR, no murmur - Routine Abdominal Exam Present: soft, normoactive bowel sounds, non distended, non tender - Routine Extremities Exam Present: no edema. Absent: cyanosis, clubbing Comments: Pt has wound vac on his distal RLE. No bleeding is seen. Pt has had several toes amputated. - Routine Musculoskeletal Exam Musculoskeletal: no clubbing or cyanosis - Routine Neurological Exam Present: alert, oriented X3 - Routine Lymphatic Exam Lymphatic: Absent: adenopathy - Routine Psychiatric Exam Present: normal affect, good insight, good judgment Results - Labs CBC & Chem 7: 10/06/16 11:44 10/06/16 04:13 Assessment and Plan (1) Severe sepsis Current visit: Yes Status: Resolved (2) Diabetic foot ulcer with osteomyelitis Current visit: Yes Status: Acute 10/01/16 Wound growing DILIA. (3) Type II diabetes mellitus Current visit: Yes Status: Chronic (4) CAD (coronary artery disease) Current visit: Yes Status: Chronic (5) CHF (congestive heart failure) Current visit: Yes Status: Chronic (6) Hypoxia Current visit: Yes Status: Resolved (7) Cough Current visit: Yes Status: Chronic Chronic - ? ROLANDO induced. (8) Peripheral neuropathy Current visit: Yes Status: Chronic (9) HTN (hypertension) Current visit: Yes Status: Chronic (10) Normochromic anemia Current visit: Yes Status: Chronic (11) ARSH (obstructive sleep apnea) Current visit: Yes Status: Suspected (12) Morbid (severe) obesity due to excess calories Current visit: Yes Status: Chronic (13) Deep vein thrombosis (DVT) of popliteal vein of left lower extremity Current visit: Yes Status: Chronic (14) Nausea & vomiting Current visit: Yes Status: Acute Assessment and Plan: Mr Alas is a 56 YO male that was admitted to the hospital for a foot infection. Pt was found to have OM and will need 6 weeks of IV antibiotics. He has a PICC in place. Pt is on Cefazolin for DILIA. Due to his bleeding episode (10/05), Brilinta, ASA and lovenox are on hold. Pt is on PRN ibuprofen, for now. Pt has stents so he should resume these ALEJANDRA. PT/ INR was ordered today as pt had been on antibiotics for a while and could be coagulopathic, but INR is normal and PTT is normal as well.l Assesment 1) Type II DM with macrovascular disease (CAD - S/P Stents) and R Foot infection with OM due to DILIA. - Pt has a PICC - WIll be going home on IV antibiotics to complete 6 weeks. - Pt states he is terrorized of taking Statins, he usually will have severe muscle pain and would be bad enough to need hospitalization. - He has discussed this with his Clothes Model - Dr Barnett - and apparently he will be getting at some time a PCSK9 inhibitor. 2) Bleeding episode (post op) on 10/05 - PT/INR and PTT normal - Will discuss with surgery timing to resume Brilinta. - Repeat H/H shows no further drop in hemoglobin count. 3) S/P VT + multiple stents - Should resume Brilinta soon and watch for new bleeding once this is done. - Pt was on ASA - effect will last another 4 to 5 days. - Can not tolerate statins (See above). Sepsis Assessment - Evaluation Sepsis screening result: No Definite Risk Hospital Course Summary Disclaimer: The visit summary below is not to be considered part of the above Progress Note. Hospital Course: 09/27 Admit to CCU for close observation with severe sepsis. Finish fluid resuscitation. Continue Zosyn and vancomycin for infected diabetic foot wound. Consult Dr. Medeiros tomorrow. May need ID consult as well. Venous Doppler to rule out DVT. Continue usual home insulin and give sliding scale insulin as well. Monitor Accu -Cheks. Lovenox for DVT prophylaxis. Due to sepsis and hypotension we'll hold metformin and antihypertensives at this time. We'll also hold Lasix. Cardiac medications will likely need to be restarted in the next 1-2 days. Monitor closely for fluid overload after fluid resuscitation in a patient with history of CHF. Greater than 75 minutes of critical care time spent seeing and evaluating the patient and determining 09/28 Continue Zosyn and vancomycin for infected diabetic foot wound. Dr. Medeiros was consulted and plans for I&D later today. He will obtain deep wound cultures. We'll consult infectious disease to see tomorrow. Check d-dimer. Continue usual home insulin and give sliding scale insulin as well. Monitor Accu -Cheks. Continue Lovenox for DVT prophylaxis Metformin, antihypertensives, and Lasix are on hold at this time. Continue to monitor closely for fluid overload after fluid resuscitation in a patient with history of CHF. PROCEDURE Excisional surgical debridement of necrotic skin, subcutaneous tissues and fascia from left foot/diabetic foot ulcer. 09/29 Continue Zosyn and vancomycin for infected diabetic foot wound with osteomyelitis. Going back to surgery later today for fourth toe amputation and further debridement. Dr. Sin was consulted and recommends at least 6 weeks of IV antibiotics. We'll place PICC line today. Await final wound culture and sensitivity results. Start anticoagulation for DVT when okay with Dr. Medeiros. Reading diabetes, adjust insulin as needed. He received a half dose of Lantus last night secondary to poor appetite and nothing by mouth status today. Blood sugars are fairly well controlled. Continue to monitor Accu-Cheks. Metformin and Lasix are on hold at this time. Check chest x-ray. May need diuresis. CBC and BMP tomorrow. Possible transfer out of intensive care if doing well postoperatively. Procedure: Left foot 3rd toe Ray amputation with application of wound vac Postoperative Diagnosis: left diabetic foot ulcer with extensive wound and sepsis 09/30 Continue Zosyn and vancomycin for antimicrobial coverage - Dr Sin recommending 6 weeks of IV therapy. Continue wound vac. Will restart Brilinta due to stent and Lovenox for DVT prevention. Lengthy discussion with pt regarding anticoagulation. He is against use of Xarelto/Coumadin-feels the DVT likely chronic. Is receiving Brilinta with drug study-concerns if stopped, would not be able to afford Xarelto and worries would not be able to get back on to Brellenta. Will restart Brilinta and initiate low dose Lovenox. Restart Lasix orally to help motivate fluid - BP improved from admit and severe sepsis resolved. Continue diabetic medications - sugars stable. Continue to hold metformin. Recheck CBC in am due to resolving sepsis. Repeat BMP in am due to diabetes, medication use and resolving sepsis. Will transfer to surgical floor as CCU needs resolved - condition has stabilized. 10/01 With culture showing DILIA, will change antibiotics to cefazolin 2 grams IV q8 hours as per Dr Sin's recommendation. Continue wound vac. Lasix and Coreg restarted. Will start lisinopril tomorrow - watch for increased cough with this medication. Continue diabetic medications - sugars stable. Continue to hold metformin. Start Colace 100mg BID to help bowel function. Have MOM, Miralax, and Dulcolax prn. PT/OT to see pt to maximize his functional status. Recheck CBC in am due to resolving sepsis. Repeat BMP in am due to diabetes, medication use and resolving sepsis. 10/02 Continue cefazolin 2 grams IV q8 for coverage of DILIA. Continue wound vac. Lasix and Coreg restarted. Lisinopril restarted - monitor for increasing cough. Continue diabetic medications - sugars doing well. Continue to hold metformin. Continue with bowel motivation. Bowels moving. Encourage continued activities and therapy. Recheck CBC in am due to resolving sepsis. Repeat BMP in am due to medication use. 10/03 Continue cefazolin 2 grams IV q8 for coverage of DILIA. Continue wound vac. Will increase frequency of [place] to every four hours to help pain control. Blood pressure and HR stable on home medications. Blood sugars going well - will continue to hold on restarting Metformin. Continue with bowel motivation. Overall bowel function stable. Encourage continued activities and therapy. Recheck CBC and CRP in am due to resolving sepsis. Repeat CMP in am due to medication use. 10/04 Continue cefazolin 2 grams IV q8 for coverage of DILIA. Will need 6 weeks from . Weekly outpatient lab of CBC with diff, BMP, and CRP faxed to Dr Sin - . Weekly PICC line care needed. Continue wound vac-changed today. Wound improving. Dr Medeiros not feeling further debridements needed. Arrangements being made for outpatient wound vac. Continue pain control. Encourage activities. Blood pressure and blood sugars stable with current regimen. Recheck CBC and BMP in am due to medication use and resolving sepsis. Hope for discharge to home in near future, once outpatient wound vac and antibiotic arrangements made. 10/05 Rough morning. Had significant bleeding from foot wound, not able to be controlled at bedside. Take to OR where hemostasis achieved. HGB did drop from 11.1 this am to 10.4. Foot without pain/discomfort currently-nerve block not worn off. Breathing stable. Cough not increasing with reinstitution of lisinopril. Blood pressure stable. No chest pain. Eating better. Sugars decreasing with increase of insulin yesterday (still lower mealtime insulin dose than prior to admission). Hold Brilinta, ASA, and Lovenox due to bleeding. Continue cefazolin 2 grams IV q8 for coverage of DILIA. Will need 6 weeks from . Continue pain control. Encourage activities. Blood pressure and blood sugars stable with current regimen. Recheck CBC and BMP in am due to medication use and resolving sepsis. Hope for discharge to home in near future, antibiotic and wound vac arrangements made. Procedure: Surgeon: Mala Postoperative Diagnosis: Hemorrhage from left foot surgical site Procedure: Left foot wound explorations with control of bleeding.
--- NOTE | 2016-10-06 15:29 | Progress Note ---
DATE 10/06/2016 FINDINGS Mr. Nicole is without complaints today. OBJECTIVE VITALS: Afebrile. Normotensive. EXTREMITIES: Attention was focused to the left lower extremity. Wound VAC was in place. No evidence for significant bleeding today. Some minimal blood is noted within the tubing of the wound VAC. No significant erythema or edema noted beneath the wound VAC dressing. ASSESSMENT 56-year-old gentleman with multiple associated medical comorbidities, status post left third ray amputation, status post exploration of wound and ligation of bleeding vessel. Patient doing well today. PLAN Continue with current care at this time. Once the patient has been deemed stable from a medical standpoint, I do believe he could be discharged at that time with outpatient wound VAC dressings and ongoing outpatient antibiotics. Will continue to follow along with the patient's care. ISELA
[2016-10-06] MEDS: INSULIN GLARGINE 100unit/ml INJECTION SQ SCH (22:02)
[2016-10-07] MEDS: DiphenhydrAMINE 25 MG CAPSULE PO PRN (02:53)
[2016-10-07] MEDS: HYDROCODONE/APAP 5mg/325mg TABLET PO PRN ×4 (02:56→21:06)
[2016-10-07] MEDS: CEFAZOLIN 2 G in NS 100 ML IV SCH ×3 (05:38→21:06)
[2016-10-07] MEDS ORDERED: TICAGRELOR 90 MG TABLET PO SCH (09:00)
[2016-10-07] MEDS: CARVEDILOL 6.25 MG TABLET PO SCH ×2 (09:37→17:45)
[2016-10-07] MEDS: FUROSEMIDE 40 MG TABLET PO SCH (09:37)
[2016-10-07] MEDS: LISINOPRIL 5 MG TABLET PO SCH (09:37)
[2016-10-07] MEDS: INSULIN ASPART 100unit/ml INJECTION SQ SCH ×3 (09:38→17:45)
[2016-10-07] MEDS: DOCUSATE SODIUM 100 MG CAPSULE PO SCH ×2 (09:38→21:04)
[2016-10-07] MEDS: ONDANSETRON 4 MG/2 ML INJECTION IVP PRN (09:40)
[2016-10-07] MEDS: SALINE FLUSH 10ml SYRINGE IVF PRN ×2 (09:41→14:16)
[2016-10-07] MEDS: INSULIN ASPART 100unit/ml INJECTION SQ PRN ×2 (11:31→21:04)
[2016-10-07] MEDS: IBUPROFEN 600 MG TABLET PO PRN (11:53)
--- NOTE | 2016-10-07 13:05 | Progress Note ---
Subjective: Pt states he is feeling fine. Was ambulating earlier today and developed some foot pain after. Has been tired but has noticed improved stamina over the last several days. Will have his dressing changed and then if OK with surgery will resume Brilinta. Objective Vital signs: Temp Pulse Resp BP Pulse Ox 97.7 F 84 16 132/82 95 10/07/16 08:00 10/07/16 08:00 10/07/16 08:00 10/07/16 08:00 10/07/16 08:00 Rhythm: Normal Sinus Rhythm Weight: 130.9 kg - Constitutional Present: no acute distress, well nourished, well developed, obese, cooperative - Routine HEENT Exam Head: Present: normocephalic, atraumatic Eye: Present: EOMI, PERRL - Routine Cardiovascular Exam Present: RRR, S1, no murmur - Routine Abdominal Exam Present: soft, normoactive bowel sounds, non distended, non tender - Routine Extremities Exam Absent: cyanosis, clubbing, edema - Routine Neurological Exam Present: alert, oriented X3 - Routine Psychiatric Exam Present: normal affect, normal thought process Results - Labs CBC & Chem 7: 10/07/16 04:13 10/07/16 04:13 Assessment and Plan (1) Severe sepsis Current visit: Yes Status: Resolved (2) Diabetic foot ulcer with osteomyelitis Current visit: Yes Status: Acute 10/01/16 Wound growing DILIA. (3) Type II diabetes mellitus Current visit: Yes Status: Chronic (4) CAD (coronary artery disease) Current visit: Yes Status: Chronic (5) CHF (congestive heart failure) Current visit: Yes Status: Chronic (6) Hypoxia Current visit: Yes Status: Resolved (7) Cough Current visit: Yes Status: Chronic Chronic - ? ROLANDO induced. (8) Peripheral neuropathy Current visit: Yes Status: Chronic (9) HTN (hypertension) Current visit: Yes Status: Chronic (10) Normochromic anemia Current visit: Yes Status: Chronic (11) ARSH (obstructive sleep apnea) Current visit: Yes Status: Suspected (12) Morbid (severe) obesity due to excess calories Current visit: Yes Status: Chronic (13) Deep vein thrombosis (DVT) of popliteal vein of left lower extremity Current visit: Yes Status: Chronic (14) Nausea & vomiting Current visit: Yes Status: Acute Assessment and Plan: Mr Alas is a 56 YO male that was admitted to the hospital for a foot infection. Pt was found to have OM and will need 6 weeks of IV antibiotics. His surgical culture showed pansensitive Staph Aureus. He has a PICC in place and is on Cefazolin for DILIA. He had surgery with removal of the affected bone and tissues which was followed by an episode of bleeding (10/05), pt went again to the ED where the bleeding was controllled. Brilinta, ASA and lovenox were held. Pt has stents on his coronary arteries, so he should resume these ALEJANDRA, I have reordered Brilinta (10/06) to be started; it is pending OK by surgery (They want to change the dressing first). Assesment 1) Type II DM with macrovascular disease (CAD - S/P Stents) and R Foot infection with OM due to DILIA. - Pt has a PICC and will be going home on current antibiotics. - WIll be going home on IV antibiotics to complete 6 weeks. - Pt has hyperlipidemia with a high LDL (Above goal) - states he is terrorized of taking Statins, he usually will have severe muscle pain and would be bad enough to need hospitalization. - He has discussed this with his [employer] Architect - Dr Barnett - and apparently he will be getting at some time a PCSK9 inhibitor. 2) Bleeding episode (post op) on 10/05 - PT/INR and PTT normal (10/05) done due to pt being for a while on antibitics ( to R/O Vit K deficiency). - Repeat H/H shows no further drop in hemoglobin count. 3) S/P AL + multiple stents - Should resume Brilinta soon and watch for new bleeding once this is done. Prior to doing this surgery wants to re-examine the surgical bed and change the dressing. - Pt was on ASA - effect will last another 4 days or so. - Can not tolerate statins (See above). Sepsis Assessment - Evaluation Sepsis screening result: No Definite Risk Hospital Course Summary Disclaimer: The visit summary below is not to be considered part of the above Progress Note. Hospital Course: 09/27 Admit to CCU for close observation with severe sepsis. Finish fluid resuscitation. Continue Zosyn and vancomycin for infected diabetic foot wound. Consult Dr. Medeiros tomorrow. May need ID consult as well. Venous Doppler to rule out DVT. Continue usual home insulin and give sliding scale insulin as well. Monitor Accu -Cheks. Lovenox for DVT prophylaxis. Due to sepsis and hypotension we'll hold metformin and antihypertensives at this time. We'll also hold Lasix. Cardiac medications will likely need to be restarted in the next 1-2 days. Monitor closely for fluid overload after fluid resuscitation in a patient with history of CHF. Greater than 75 minutes of critical care time spent seeing and evaluating the patient and determining 09/28 Continue Zosyn and vancomycin for infected diabetic foot wound. Dr. Medeiros was consulted and plans for I&D later today. He will obtain deep wound cultures. We'll consult infectious disease to see tomorrow. Check d-dimer. Continue usual home insulin and give sliding scale insulin as well. Monitor Accu -Cheks. Continue Lovenox for DVT prophylaxis Metformin, antihypertensives, and Lasix are on hold at this time. Continue to monitor closely for fluid overload after fluid resuscitation in a patient with history of CHF. PROCEDURE Excisional surgical debridement of necrotic skin, subcutaneous tissues and fascia from left foot/diabetic foot ulcer. 09/29 Continue Zosyn and vancomycin for infected diabetic foot wound with osteomyelitis. Going back to surgery later today for fourth toe amputation and further debridement. Dr. Sin was consulted and recommends at least 6 weeks of IV antibiotics. We'll place PICC line today. Await final wound culture and sensitivity results. Start anticoagulation for DVT when okay with Dr. Medeiros. Reading diabetes, adjust insulin as needed. He received a half dose of Lantus last night secondary to poor appetite and nothing by mouth status today. Blood sugars are fairly well controlled. Continue to monitor Accu-Cheks. Metformin and Lasix are on hold at this time. Check chest x-ray. May need diuresis. CBC and BMP tomorrow. Possible transfer out of intensive care if doing well postoperatively. Procedure: Left foot 3rd toe Ray amputation with application of wound vac Postoperative Diagnosis: left diabetic foot ulcer with extensive wound and sepsis 09/30 Continue Zosyn and vancomycin for antimicrobial coverage - Dr Sin recommending 6 weeks of IV therapy. Continue wound vac. Will restart Brilinta due to stent and Lovenox for DVT prevention. Lengthy discussion with pt regarding anticoagulation. He is against use of Xarelto/Coumadin-feels the DVT likely chronic. Is receiving Brilinta with drug study-concerns if stopped, would not be able to afford Xarelto and worries would not be able to get back on to Brellenta. Will restart Brilinta and initiate low dose Lovenox. Restart Lasix orally to help motivate fluid - BP improved from admit and severe sepsis resolved. Continue diabetic medications - sugars stable. Continue to hold metformin. Recheck CBC in am due to resolving sepsis. Repeat BMP in am due to diabetes, medication use and resolving sepsis. Will transfer to surgical floor as CCU needs resolved - condition has stabilized. 10/01 With culture showing DILIA, will change antibiotics to cefazolin 2 grams IV q8 hours as per Dr Sin's recommendation. Continue wound vac. Lasix and Coreg restarted. Will start lisinopril tomorrow - watch for increased cough with this medication. Continue diabetic medications - sugars stable. Continue to hold metformin. Start Colace 100mg BID to help bowel function. Have MOM, Miralax, and Dulcolax prn. PT/OT to see pt to maximize his functional status. Recheck CBC in am due to resolving sepsis. Repeat BMP in am due to diabetes, medication use and resolving sepsis. 10/02 Continue cefazolin 2 grams IV q8 for coverage of DILIA. Continue wound vac. Lasix and Coreg restarted. Lisinopril restarted - monitor for increasing cough. Continue diabetic medications - sugars doing well. Continue to hold metformin. Continue with bowel motivation. Bowels moving. Encourage continued activities and therapy. Recheck CBC in am due to resolving sepsis. Repeat BMP in am due to medication use. 10/03 Continue cefazolin 2 grams IV q8 for coverage of DILIA. Continue wound vac. Will increase frequency of [place] to every four hours to help pain control. Blood pressure and HR stable on home medications. Blood sugars going well - will continue to hold on restarting Metformin. Continue with bowel motivation. Overall bowel function stable. Encourage continued activities and therapy. Recheck CBC and CRP in am due to resolving sepsis. Repeat CMP in am due to medication use. 10/04 Continue cefazolin 2 grams IV q8 for coverage of DILIA. Will need 6 weeks from . Weekly outpatient lab of CBC with diff, BMP, and CRP faxed to Dr Sin - . Weekly PICC line care needed. Continue wound vac-changed today. Wound improving. Dr Medeiros not feeling further debridements needed. Arrangements being made for outpatient wound vac. Continue pain control. Encourage activities. Blood pressure and blood sugars stable with current regimen. Recheck CBC and BMP in am due to medication use and resolving sepsis. Hope for discharge to home in near future, once outpatient wound vac and antibiotic arrangements made. 10/05 Rough morning. Had significant bleeding from foot wound, not able to be controlled at bedside. Take to OR where hemostasis achieved. HGB did drop from 11.1 this am to 10.4. Foot without pain/discomfort currently-nerve block not worn off. Breathing stable. Cough not increasing with reinstitution of lisinopril. Blood pressure stable. No chest pain. Eating better. Sugars decreasing with increase of insulin yesterday (still lower mealtime insulin dose than prior to admission). Hold Brilinta, ASA, and Lovenox due to bleeding. Continue cefazolin 2 grams IV q8 for coverage of DILIA. Will need 6 weeks from . Continue pain control. Encourage activities. Blood pressure and blood sugars stable with current regimen. Recheck CBC and BMP in am due to medication use and resolving sepsis. Hope for discharge to home in near future, antibiotic and wound vac arrangements made. Procedure: Surgeon: Mala Postoperative Diagnosis: Hemorrhage from left foot surgical site Procedure: Left foot wound explorations with control of bleeding.
[2016-10-07] MEDS: NS FLUSH BAG 500ml IV PRN (14:16)
--- NOTE | 2016-10-07 17:13 | Progress Note ---
DATE OF SERVICE 10/07/2016 FINDINGS Mr. Alas was in good spirits this afternoon. He states he has been up and about and walking. Denies much in the way of pain. VITAL SIGNS: Afebrile, normotensive. Please refer to EMR. LEFT LOWER EXTREMITY: Wound VAC was in place and functioning. There was no evidence for bleeding. No evidence for significant erythema or edema. ASSESSMENT 56-year-old gentleman status post left third ray amputation. Overall patient doing well. PLAN I do believe it would be appropriate to go ahead and reinitiate his anticoagulation. I do not feel that he is going to have recurrence of his bleeding. I will be leaving town tomorrow. If any further general surgical or wound care is needed please do not hesitate to contact Dr. Gregory who will be covering for me the remainder of this week. ISELA
[2016-10-07] MEDS: INSULIN GLARGINE 100unit/ml INJECTION SQ SCH (21:05)
[2016-10-08] MEDS: HYDROCODONE/APAP 5mg/325mg TABLET PO PRN ×3 (02:12→17:29)
[2016-10-08] MEDS: IBUPROFEN 600 MG TABLET PO PRN (05:06)
[2016-10-08] MEDS: CEFAZOLIN 2 G in NS 100 ML IV SCH ×2 (05:07→12:44)
[2016-10-08] MEDS: DiphenhydrAMINE 25 MG CAPSULE PO PRN (05:11)
[2016-10-08] MEDS: INSULIN ASPART 100unit/ml INJECTION SQ PRN (05:26)
[2016-10-08] MEDS: LISINOPRIL 5 MG TABLET PO SCH (08:33)
[2016-10-08] MEDS: DOCUSATE SODIUM 100 MG CAPSULE PO SCH (08:33)
[2016-10-08] MEDS: CARVEDILOL 6.25 MG TABLET PO SCH ×2 (08:33→17:19)
[2016-10-08] MEDS: FUROSEMIDE 40 MG TABLET PO SCH (08:33)
[2016-10-08] MEDS: INSULIN ASPART 100unit/ml INJECTION SQ SCH ×3 (08:34→17:19)
[2016-10-08] MEDS ORDERED: TICAGRELOR 90 MG TABLET PO SCH (12:15)
[2016-10-08] MEDS: SALINE FLUSH 10ml SYRINGE IVF PRN (12:45)
--- NOTE | 2016-10-08 15:36 | Discharge Summary ---
Discharge Plan - Med Rec/Dispo Bee Instructions: Wound Infection (DC), Wound Healing and Your Diet (DC), Toe Amputation (DC), Negative Pressure Wound Therapy (DC) Prescriptions: New Insulin Glargine,Hum.rec.anlog [Lantus] 45 unit SQ HS #2 vial Insulin Aspart [NovoLOG] 15 unit SQ TIDWM #2 vial Ticagrelor [Brilinta] 90 mg PO BID Furosemide [Lasix] 40 mg PO DAILY #30 Nitroglycerin [Nitrostat] 0.4 mg SL Q5MIN PRN PRN Reason: CP Continue Insulin Glargine,Hum.rec.anlog [Toujeo Solostar] 45 unit SQ HS #0 Metformin HCl 1,000 mg PO BIDWM #0 Aspirin [Aspirin EC] 81 mg PO HS #0 Furosemide 40 mg PO DAILY #0 Lisinopril 5 mg PO DAILY #0 Fluticasone Nasal [place] [Flonase] 1 spray EA NOSTRIL DAILY PRN #1 PRN Reason: Prn Orders Hydrocodone/APAP 5/325 [[place] 5/325] 1 tab PO Q6H PRN #30 tab MDD do not take more than 4/day PRN Reason: Pain Ticagrelor [Brilinta] 90 mg PO BID #0 Insulin Aspart [Novolog Flexpen] 10 - 20 unit SQ TIDWM #0 Carvedilol 6.25 mg PO BIDWM #60 Changed diphenhydrAMINE HCl [Benadryl] 25 mg PO Q8H PRN #90 PRN Reason: ALLERY SYMPTOMS Discontinued Amoxicillin/Potassium Clav [Augmentin 875-125 Tablet] 1 each PO BID #20 tablet No Action Nitroglycerin 0.4 mg SL Q5MIN PRN #0 PRN Reason: CHEST PAIN Discharge Instructions/Outpatient Orders: Final Provider Discharge Instructions Location: Determined By Patient - Disposition 01 Discharged Home, Self-Care
--- NOTE | 2016-10-08 16:00 | Discharge Summary ---
Discharge Information Date of admission: 09/27/16 17:22 Attending Physician: Laurence Hernandez MD Primary care physician: Vadim Hayes DO Consults: 09/27/16 Pharmacy Consult [CONS] Routine Pharmacy Consult: Vancomycin 09/27/16 20:26 Physician Consult [CONS] Routine Consulting Provider: Vic Medeiros Reason For Exam: infected foot wound Ordering Provider has Notified Social Services Manager: Yes 09/29/16 08:31 Physician Consult [CONS] Routine Consulting Provider: Kristy Sin Reason For Exam: infected diabetic foot wound, gangrene? Ordering Provider has Notified Social Services Manager: Yes 09/30/16 16:18 Wound Vein Clinic Consult [CONS] Routine Reason for consultation: LLE TOE AMPUTATION; OSTEOMYELITIS; WOUND VAC IN USE - Discharge Diagnosis (1) Severe sepsis Status: Resolved (2) Diabetic foot ulcer with osteomyelitis Status: Acute (3) Type II diabetes mellitus Status: Chronic (4) CAD (coronary artery disease) Status: Chronic (5) CHF (congestive heart failure) Status: Chronic (6) Hypoxia Status: Resolved (7) Cough Status: Chronic (8) Peripheral neuropathy Status: Chronic (9) HTN (hypertension) Status: Chronic (10) Normochromic anemia Status: Chronic (11) ARSH (obstructive sleep apnea) Status: Suspected (12) Morbid (severe) obesity due to excess calories Status: Chronic (13) Deep vein thrombosis (DVT) of popliteal vein of left lower extremity Status: Chronic (14) Nausea & vomiting Status: Acute - Laboratory Labs: 10/07/16 04:13 10/07/16 04:13 - Microbiology Microbiology 09/28/16 16:21 Foot, Left Gram Stain - Final 09/28/16 16:21 Foot, Left Surgical Culture - Final Staphylococcus aureus History of Present Illness HPI: The patient is a very pleasant 56-year-old male who has had type 2 diabetes mellitus for approximately 20 years. He has had a left great toe amputation in the past secondary to diabetic foot wound. He was hospitalized 12/2016 through 08/27/2016 with an infected diabetic foot wound on the left foot. This did grow out DILIA and Citrobacter. Dr. Medeiros was consulted for I& D. The patient was given vancomycin and Zosyn while hospitalized and discharged on oral Cipro and clindamycin for 7 days. He states he followed up 2 weeks ago at the wound clinic and Dr. Medeiros stated his wound looked good. The patient thought his foot was looking good a week ago as well. He states that a few days ago he began having increased pain in the left forefoot in the same location as his previous infected foot wound. He went to the emergency room yesterday and was started on Augmentin. However, he was too nauseated and was vomiting and could not keep down his Augmentin. He was developing lightheadedness and thought he might fall. He was occasionally feeling short of breath. He called the wound clinic today and saw Dr Camilo and at that time he was found to have fever of 102 and wound could be probed down to the bone over the plantar portion of the left foot near the fourth metatarsal head. The patient was then transferred to the emergency room for evaluation White count today is 18.1 up from 13.2 yesterday. He has 87 segs and 0 bands. C -reactive protein was elevated at 254. Lactate was normal at 2.0. CMP was basically normal. Pro-calcitonin was 0.66. Blood pressure was initially normal in the ER but on repeat was 86/50. It was felt that he needed admission to CCU for severe sepsis secondary to hypotension. The patient was treated with IV fluids at 30 ML's per kilogram and blood pressure has normalized. Hospital Course Hospital course: 09/27 - Pt was admited to the CCU for sepsis due to diabetic foot infection. He was cultured and fluid resucitated. Pt had a Doppler looking for DVT - "..................... Impression: Probable chronic nonocclusive thrombus in the superficial femoral and popliteal veins. ..................................." Pt was started on Lovenox for DVT prevention and Sliding scale for his diabetes. Metformin was held due to hypotension and sepsis. Antibiotics started - Zosyn and vancomycin with kinetics consult to pharmacy. Dr. Medeiros was consulted. Pt went for surgery and underwent a Excisional surgical debridement of necrotic skin, subcutaneous tissues and fascia from left foot/diabetic foot ulcer and Left foot 3rd toe Ray amputation. This was sent for pathology for cultures. ID was consulted (Dr. Sin), who recommended at least 6 weeks of IV antibiotics. PICC line was placed on 09/29. Brilinta was started on 09/30. Bone culture showed Mcmillan-sensitive S. Aureus (DILIA), so antibiotics where changed to cefazolin 2 grams IV q8 hours as per Dr Sin's recommendation. Pt continued to improve over the next several days (10/02, 10/03, 10/04). On 10/05 pt developed a bleed on the surgical bed and required control in the OR. His Lovenox, ASA and Brilinta were held. Pt had serial H.H done and had a minimal drop on his H.H , NOT needing transfussion. On 10/07 wound was checked by surgery and on 10/08 surgery gave the OK to resume Brilinta. Pt was able to ambulate - no bleeding is seen and he is ready to go home. Pt will go home and continue to receive Cefazolin to complete 6 weeks. He will have a wound vac at home as well. Pt received extensive diabetic education and is highly motivated to follow a diet and life style modifications. Pt LDL (last measured) has been above the goal. I discussed with this pt the use of Statins, but he states he does not tolerate statins and he has been several times in the hospital due to statin induced myalgias and cramps (no rhabdomyolisis apparently). Diagnosis - 1) Type II DM with macrovascular disease (CAD - S/P Stents) and R Foot infection with OSTEOMYELITIS - due to DILIA. - Pt has a PICC and will be going home on current on Cefazolin 2gm IV Q8H - to complete 6 weeks. - Pt has hyperlipidemia with a high LDL (Above goal) - states he is terrorized of taking Statins, he usually will have severe muscle pain and would be bad enough to need hospitalization. - He has discussed this with his Stone Repairer - Dr Barnett - and apparently he will be getting at some time a PCSK9 inhibitor. - D/C home on Lantus + Novolog. He can resume his Metformin as well. 2) Bleeding episode (post op) on 10/05 - PT/INR and PTT normal (10/05) done due to pt being for a while on antibitics ( to R/O Vit K deficiency). PT/INR did not show Coagulopathy. - Repeat H/H shows no further drop in hemoglobin count. 3) S/P OK + multiple stents - Resumed Brilinta earlier today - pt ambulated and is well and will be going home. - He can resume ASA as well. - He was told to avoid NSAID's due to interaction with Brillinta. - Can not tolerate statins (See above). Discharge Plan - Med Rec/Dispo Jaime Instructions: Wound Infection (DC), Wound Healing and Your Diet (DC), Toe Amputation (DC), Negative Pressure Wound Therapy (DC) Prescriptions: New Insulin Glargine,Hum.rec.anlog [Lantus] 45 unit SQ HS #2 vial Insulin Aspart [NovoLOG] 15 unit SQ TIDWM #2 vial Ticagrelor [Brilinta] 90 mg PO BID Furosemide [Lasix] 40 mg PO DAILY #30 Nitroglycerin [Nitrostat] 0.4 mg SL Q5MIN PRN PRN Reason: CP Continue Insulin Glargine,Hum.rec.anlog [Toujeo Solostar] 45 unit SQ HS #0 Metformin HCl 1,000 mg PO BIDWM #0 Aspirin [Aspirin EC] 81 mg PO HS #0 Furosemide 40 mg PO DAILY #0 Lisinopril 5 mg PO DAILY #0 Fluticasone Nasal [place] [Flonase] 1 spray EA NOSTRIL DAILY PRN #1 PRN Reason: Prn Orders Hydrocodone/APAP 5/325 [[place] 5/325] 1 tab PO Q6H PRN #30 tab MDD do not take more than 4/day PRN Reason: Pain Ticagrelor [Brilinta] 90 mg PO BID #0 Insulin Aspart [Novolog Flexpen] 10 - 20 unit SQ TIDWM #0 Carvedilol 6.25 mg PO BIDWM #60 Changed diphenhydrAMINE HCl [Benadryl] 25 mg PO Q8H PRN #90 PRN Reason: ALLERY SYMPTOMS Discontinued Amoxicillin/Potassium Clav [Augmentin 875-125 Tablet] 1 each PO BID #20 tablet No Action Nitroglycerin 0.4 mg SL Q5MIN PRN #0 PRN Reason: CHEST PAIN - Disposition 01 Discharged Home, Self-Care
--- NOTE | 2016-10-09 09:40 | Right on Track Program ---
Right on Track Program Date of Discharge: 10/08/16 Home Medications: Home Medications Medication Instructions Recorded Confirmed Aspirin [Aspirin EC] 81 mg PO HS #0 12/11/15 09/27/16 Furosemide 40 mg PO DAILY #0 12/11/15 09/27/16 Insulin Glargine,Hum.rec.anlog 45 unit SQ HS #0 12/11/15 09/27/16 [Toujeo Solostar] Metformin HCl 1,000 mg PO BIDWM #0 12/11/15 09/27/16 Nitroglycerin 0.4 mg SL Q5MIN PRN #0 12/11/15 09/27/16 Ticagrelor [Brilinta] 90 mg PO BID #0 12/11/15 09/27/16 Insulin Aspart [Novolog Flexpen] 10 - 20 unit SQ TIDWM #0 08/24/16 09/27/16 Lisinopril 5 mg PO DAILY #0 08/24/16 09/27/16 Previous Rx's Medication Instructions Recorded Carvedilol 6.25 mg PO BIDWM #60 10/08/16 Fluticasone Nasal [place] [Flonase] 1 spray EA NOSTRIL DAILY PRN #1 10/08/16 Furosemide [Lasix] 40 mg PO DAILY #30 10/08/16 Hydrocodone/APAP 5/325 [[place] 1 tab PO Q6H PRN #30 tab MDD do 10/08/16 5/325] not take more than 4/day Insulin Aspart [NovoLOG] 15 unit SQ TIDWM #2 vial 10/08/16 Insulin Glargine,Hum.rec.anlog 45 unit SQ HS #2 vial 10/08/16 [Lantus] Nitroglycerin [Nitrostat] 0.4 mg SL Q5MIN PRN 10/08/16 Ticagrelor [Brilinta] 90 mg PO BID 10/08/16 diphenhydrAMINE HCl [Benadryl] 25 mg PO Q8H PRN #90 10/08/16 - Right on Track Program PHONE CALL #1 Date: 10/09/16 Right on Track Program: 24 Hour Follow-Up Discharge Summary Received: Yes Care Plan Received: Yes Follow Up: Pending Tests Reviewed, Follow Up Appointment Scheduled Education: Diagnosis Education Reviewed Referral: Primary Care Physician, Home Health Comments: I spoke with Juwan on 10/09/16. He ran into some challenges with arranging the syringe to give himself his abx injections, but now has figured it out (he demonstrated his technique to the HH RN, as well). He also ran into some issues with filling his hospital Rx - the pharmacy was charging him >$500 copay, and he 's not supposed to have any copay. He filled the [place] Rx (this was only $5), and will talk to Dr. Hayes on Tuesday to see if the Rx can be rewritten from [facility] - he doesn't have a copay when he gets Rx through them. Luckily, all the new Rx were ones that he already had. He forgot to check his sugars last night - this am his sugar was 188. He took his long-acting and short -acting insulin this am, so expects it to be going down. He also stated that someone will be coming to pick him up to take him to the grocery store and buy the right foods for his diabetes. He stated he has a much better understanding of what food to eat to manage his blood sugars. He reviewed what he learned from the hospital about carbs. He has a f/u appt in the wound clinic on 10/12/16. Discussed With Patient and Caregiver: Yes Recommendations For Follow-up: 1. F/U appts set up for the wound clinic and Dr. Hayes 2. Continue HH and diabetic education 3. Continue to follow through [facility] - home visit planned on 10/14/16. PHONE CALL #2 Date: 10/14/16 Comments: Juwan contacted me to reschedule our appt, which was scheduled for this afternoon. He denies any concerns or problems, just needed to reschedule for next week. He has an appt at the wound center tomorrow. [id number] changed to 10/21/16 at 1 pm.
== END 2016-10-08 19:50 | disposition home health service (06) | DRG 854 ==
LOC: ED 15:29 → SRG 15:29 → CCU 17:21 → SRG 17:21 → CCU 17:22 → ED 18:00 → SRG 09-30 19:10 → UNDODISIN 10-08 19:50 → SRG 10-12 11:52
PROVIDERS: ADMIT Internal Medicine; ATTEND Internal Medicine